=== PATIENT | male | born 1955 | race African-American/Black ===

== ENCOUNTER 2017-02-08 16:08 | Inpatient (IN) ==
[2017-02-08] MEDS ORDERED: ALBUTEROL/IPRATROPIUM 3 ML NEB RESP TX STA (17:39)
[2017-02-08] MEDS ORDERED: FUROSEMIDE 100 MG/10 ML VIAL IV STA (17:39)
--- NOTE | 2017-02-08 17:39 | Emergency Department Note ---
Jes Davidson Hilary, am scribing for, and in the presence of, Jase Parker MD 16:58. Keith Davidson Phillip K, MD, personally performed the services described in this documentation, ascribed by Roxann Andre in my presence, and it is both accurate and complete 739 . Arrival - Arrival ED Nursing Triage Note: Brought in per EMS form home with c/o shortness of breath onset approx 1530pm. +productive cough with white sputum. +pedal edema. Denies fever. Denies pain. Mode of Arrival: Stretcher Limitations: No Limitations Source: Patient, RN Notes Reviewed - History of Present Illness Onset (ago): hour(s) <Jase Parker - Last Filed: 02/08/17 17:39> <Raul Otoole - Last Filed: 02/08/17 19:44> - Arrival Chief Complaint: Shortness of Breath Stated Complaint: shortness of breath - History of Present Illness HPI Narrative: Pt is a 61 y/o white male brought into the ED via EMS with c/o SOB which onset approx 1530. Pt confirms SOB, cough white phlegm, decreased urine output, and swollen feet but denies fever, vomiting, or diarrhea. Pt has a PMHx of CHF, HTN , Seizures, NIDDM, Dyslipidemia, Gout, COPD and is on 2 Liter Oxygen at home 24/ 7. He confirms that he is a current everyday smoker. No other complaints or problems stated in the ED. (Roxann Andre) Pt is a 61 y/o white male brought into the ED via EMS with c/o SOB which onset approx 1530. Pt confirms SOB, cough white phlegm, decreased urine output, and swollen feet but denies fever, vomiting, or diarrhea. Pt has a PMHx of CHF, HTN , Seizures, NIDDM, Dyslipidemia, Gout, COPD and is on 2 Liter Oxygen at home 24/ 7. He confirms that he is a current everyday smoker. No other complaints or problems stated in the ED. (Jase Parker) Allergies/Adverse Reactions: Allergies Allergy/AdvReac Type Severity Reaction Status Date / Time lisinopril Allergy Swelling Verified 02/08/17 16:17 of Lip/Tongue/Throat Home Medications: Home Medications Medication Instructions Recorded Confirmed Type Furosemide Tab [Lasix Tab] 20 mg PO BID 09/16/15 02/08/17 History traMADol TAB [Ultram] 50 mg PO Q6H PRN 09/16/15 02/08/17 History Albuterol Sulfate [Proair HFA] 2 puff INH Q4H PRN 02/03/16 02/08/17 History Febuxostat [Uloric] 80 mg PO DAILY 02/03/16 02/08/17 History Pravastatin Sodium 20 mg PO QPM 02/03/16 02/08/17 History Tamsulosin [Flomax] 0.4 mg PO BID #60 capsule 02/25/16 02/08/17 Rx Pantoprazole Tab [Protonix Tab] 40 mg PO DAILY #14 tablet 05/30/16 02/08/17 Rx Aspirin EC Tab 81 mg PO DAILY 02/08/17 02/08/17 History Atorvastatin [Lipitor] 40 mg PO DAILY 02/08/17 02/08/17 History Carvedilol [Coreg] 6.25 mg PO BID 02/08/17 02/08/17 History Losartan Potassium 100 mg PO DAILY 02/08/17 02/08/17 History Review of System - Review of System 12 point system: reviewed and no additional remarkable complaints except as stated - Review of System Constitutional: Absent: diaphoresis, fever Respiratory: Present: cough, respiratory distress (SOB) Gastrointestinal: Absent: nausea, vomiting Musculoskeletal: Present: other (legs swelling) <Jase Parker - Last Filed: 02/08/17 17:39> Medical,Surgical,& Family Hx - Medical History Cardio: History of: CHF, Hypertension Neurology: History of: Seizures HEENT: History of: Ear Problem (WEARS GLASSES) Endocrine: History of: Diabetes Mellitus (NIDDM), Dyslipidemia Rheumatology: History of;: Gout Respiratory: History of: COPD, Obstructive Sleep Apnea, Respiratory Problems (2 Liter oxygen at home at all times) Genitourinary: History of: Prostate Problems (BPH with episode of retention February 2016) - Surgical History Abdominal Surgeries: Patient denies: Splenectomy - Family History Family History: Reports;: Family Cancer (MOTHER), Family Diabetes (FATHER), Family Hypertension (FATHER) Denies;: Family Anesthesia Reaction, Family Heart Disease, Family Psychiatric Problems, Family Stroke - Social History Smoking Status: Current some day smoker Frequency of Alcohol Use: None Type of Drug Use: None <Jase Parker - Last Filed: 02/08/17 17:39> Exam - General General appearance: alert, in no apparent distress - Head Head exam: Present: atraumatic, normocephalic - Eye Eye exam: Present: normal appearance, PERRL, EOMI - ENT ENT exam: Present: mucous membranes moist, TM's normal bilaterally. Absent: mucous membranes dry - Neck Neck exam: Present: full ROM, trachea midline. Absent: tenderness - Chest Chest inspection: Present: symmetric chest wall rise. Absent: tenderness - Respiratory Respiratory exam: Present: rales (Basular rales) - Cardiovascular Cardiovascular exam: Present: normal rhythm, tachycardia, normal heart sounds. Absent: murmur, rubs, gallop - Abdominal Exam Abdominal exam: Present: soft, normal bowel sounds. Absent: distention, tenderness - Extremities Exam Extremities exam: Present: full ROM, pedal edema (2-3+ bilaterally of lower extremities). Absent: tenderness - Back Exam Back exam: Present: full ROM. Absent: tenderness - Neurological Exam Neurological exam: Present: alert, oriented X3, CN II-XII intact. Absent: motor sensory deficit - Psychiatric Psychiatric exam: Present: normal affect, normal mood - Skin Skin exam: Present: warm, dry, intact, normal color. Absent: rash <Jase Parker - Last Filed: 02/08/17 17:39> Vital Signs: Vital Signs Temperature 98.0 F 02/08/17 16:08 Pulse Rate 85 02/08/17 17:45 Respiratory Rate 20 02/08/17 17:45 Blood Pressure 178/97 02/08/17 16:08 O2 Sat by Pulse Oximetry 93 L 02/08/17 17:45 Course <Jase Parker - Last Filed: 02/08/17 17:39> <Raul Otoole - Last Filed: 02/08/17 19:44> Course Narrative: During the course of treatment the patient presents with complaints of urinary retention. He had been seeing Dr. Mejia in this regard who had advised him that he would probably have to have a TURP in the near future as he was having a poor response to medical therapy. (Raul Otoole) - Reevaluation(s) Reevaluation #1: Discussed with patient fact that he has both urinary retention and prostate symptoms as well as ongoing congestive failure with possible complicating pneumonia with resting tachycardia and hypoxia which would require further evaluation and hospital. (Raul Otoole) - Consultations Consultation #1: Discussed with the hospitalist service who will admit for further evaluation treatment. (Raul Otoole) Results <Jase Parker - Last Filed: 02/08/17 17:39> - Labs CBC & BMP: 02/08/17 18:27 02/08/17 18:27 - Diagnostic Findings Procedure: Chest x-ray: image reviewed by me, report reviewed by me (System with pulmonary edema acute rule out possible complicating pneumonia) <Raul Otoole - Last Filed: 02/08/17 19:44> - Labs Labs: I reviewed the laboratory noted the elevated white blood cell count as well as the normal cardiac (Raul Otoole) - Impressions EKG: Sinus tachycardia at 102 with normal MA interval and QRS duration. Right axis deviation with evidence of old inferior FL. Nonspecific ST changes noted significant anteriorly but no acute injury pattern noted. (Raul Otoole) Disposition <Jase Parker - Last Filed: 02/08/17 17:39> Case discussed with: patient, patient's family Time of Disposition: 19:44 <Raul Otoole - Last Filed: 02/08/17 19:44> Clinical Impression: Congestive heart failure, Urinary retention, Prostatic hypertrophy Disposition: Still a Patient Condition: Guarded
--- NOTE | 2017-02-08 18:01 | XRay Report ---
XR chest 1V portable Indication: Shortness of breath Comparison: Chest x-ray 10/28/2016 Technique: Portable AP chest was performed. Findings: The heart is borderline in size, stable. Pulmonary vasculature is prominent within the central chest bilaterally. This prominence has slightly increased since comparison study. Hilar structures demonstrate fairly symmetric appearance. The lungs demonstrate interval increase in nonconsolidating airspace opacities in the mid to lower chest bilaterally as well as some interval increase in interstitial stranding. Bones and soft tissues demonstrate no evidence of acute pathology. Impression: 1. Appearance of the chest is most suggestive of congestive heart failure and pulmonary edema. 02/08/2017 5:58 PM PROCEDURE INTERPRETED AT [facility] DEPARTMENT OF RADIOLOGY Final Report Signed by: Dr. Bartolo Morales
[2017-02-08] MEDS ORDERED: FUROSEMIDE 100 MG/10 ML VIAL ONE (18:32)
[2017-02-08] MEDS ORDERED: LEVOFLOXACIN 750 MG TABLET PO STA (18:48)
[2017-02-08 19:07] LABS: Basophils % 0.2 % (0.0-0.8); Eosinophils # 0.1 10*3/uL (0.0-0.87); Eosinophils % 0.5 % (0.00-10.9); Hematocrit 54.3 VOL% (42.0-52.0); Hemoglobin 17.8 GM/DL (14.0-18.0); Immature Granulocytes % 0.6 %; Immature Granulocytes Absolute 0.11 #; Lymphocytes # 0.9 10*3/uL (1.4-4.0); Mean Corpuscular HGB Conc 32.8 GM/DL (32-36); Mean Corpuscular Hemoglobin 29 PG (27-34); Mean Corpuscular Volume 88.3 FL (87-102); Monocytes # 1.2 10*3/uL (0.11-0.8); Monocytes % 6.4 % (1.7-12.7); NRBC # 0.02 10*3/uL; Neutrophils # 15.7 10*3/uL (1.4-7.4); Neutrophils % 87.3 % (38.7-73.9); Platelet Count 157 T/CUMM (130-400); Red Blood Count 6.15 MC/CUMM (3.8-5.5); Red Cell Distribution Width 14.9 % (9.3-17.3)
[2017-02-08] MEDS ORDERED: TAMSULOSIN 0.4 MG CAPSULE PO ONE (19:22)
[2017-02-08] MEDS ORDERED: LEVOFLOXACIN 750 MG TABLET ONE (19:22)
[2017-02-08 19:29] LABS: Alanine Aminotransferase 23 U/L (16-61); Albumin 3.3 G/DL (3.4-5.0); Alkaline Phosphatase 196 U/L (45-117); Aspartate Amino Transferase 18 U/L (0-37); Blood Urea Nitrogen 15 MG/DL (7-18); Calcium 9.1 MG/DL (8.5-10.1); Glucose 102 MG/DL (74-106); Magnesium 1.8 MG/DL (1.8-2.4); Osmolality,Calculated 283.1 MOS/KG (273-304); Potassium 4.4 MMOL/L (3.5-5.1); Sodium 142 MMOL/L (136-145); Total Protein 7.2 G/DL (6.4-8.3); Troponin I Only < 0.015 NG/ML (0.00-0.045)
--- NOTE | 2017-02-08 20:12 | Hospitalist History & Physical ---
Assessment and Plan (1) Bilateral pulmonary infiltrates on CXR Status: Acute Assessment and plan: zosyn and levaquin, oxygen, stat abg, duonebs Current Visit: Yes (2) COPD exacerbation Status: Acute Assessment and plan: duoneb, abx and steroids Current Visit: Yes (3) Morbid obesity Status: Acute Current Visit: Yes (4) Community acquired pneumonia Status: Ruled-out Assessment and plan: levaquin and zosyn Current Visit: No (5) Unspecified sleep apnea Status: Acute Assessment and plan: Dr. Lopez Current Visit: No (6) Chronic diastolic CHF (congestive heart failure), NYHA class 2 Status: Acute Assessment and plan: cont lasix 20 mg IV bid Current Visit: No (7) Essential hypertension Status: Acute Assessment and plan: coreg 6.25 mg po bid Current Visit: No (8) Cor pulmonale, chronic Status: Chronic Assessment and plan: due to untreated nick Current Visit: No History of Present Illness Chief complaint: sob History of present illness: Mr. Zamudio is a 61 year old white male brought into the ED via EMS with c/o SOB which onset approx 1530. Pt confirms SOB, cough white phlegm, decreased urine output, and swollen feet but denies fever, vomiting, or diarrhea. Pt has a PMHx of CHF, HTN, Seizures, NIDDM, Dyslipidemia, Gout, COPD and is on 2 Liter Oxygen at home 11/04. He confirms that he is a current everyday smoker. No other complaints or problems stated in the ED. patient has severe morbid obesity and has severe obstructive sleep apnea and has never been compliant with CPAP. Fact he does seem and have a CPAP machine at home. He feels that the pressure was too high and just would not do it. His white count is elevated at 18. He has a productive cough it is just whitish phlegm. Patient is high risk for pulmonary hypertension. He is unstable on 2 L and increased him to 5 L and asked for a unit bed for him. Stat ABG will be obtained in the ER prior to moving him to the CCU Home Medications Medication Instructions Recorded Confirmed Type Furosemide Tab [Lasix Tab] 20 mg PO BID 09/16/15 02/08/17 History traMADol TAB [Ultram] 50 mg PO Q6H PRN 09/16/15 02/08/17 History Albuterol Sulfate [Proair HFA] 2 puff INH Q4H PRN 02/03/16 02/08/17 History Febuxostat [Uloric] 80 mg PO DAILY 02/03/16 02/08/17 History Pravastatin Sodium 20 mg PO QPM 02/03/16 02/08/17 History Tamsulosin [Flomax] 0.4 mg PO BID #60 capsule 02/25/16 02/08/17 Rx Pantoprazole Tab [Protonix Tab] 40 mg PO DAILY #14 tablet 05/30/16 02/08/17 Rx Aspirin EC Tab 81 mg PO DAILY 02/08/17 02/08/17 History Atorvastatin [Lipitor] 40 mg PO DAILY 02/08/17 02/08/17 History Carvedilol [Coreg] 6.25 mg PO BID 02/08/17 02/08/17 History Losartan Potassium 100 mg PO DAILY 02/08/17 02/08/17 History Allergies Allergy/AdvReac Type Severity Reaction Status Date / Time lisinopril Allergy Swelling Verified 02/08/17 16:17 of Lip/Tongue/Throat Medical,Surgical,& Family Hx - Medical History Cardio: History of: CHF, Hypertension Neurology: History of: Seizures HEENT: History of: Ear Problem (WEARS GLASSES) Endocrine: History of: Diabetes Mellitus (NIDDM), Dyslipidemia Rheumatology: History of;: Gout Respiratory: History of: COPD, Obstructive Sleep Apnea, Respiratory Problems (2 Liter oxygen at home at all times) Genitourinary: History of: Prostate Problems (BPH with episode of retention February 2016) - Surgical History Abdominal Surgeries: Patient denies: Splenectomy Additional Surgical History: no surgery ever - Family History Family History: Reports;: Family Cancer (MOTHER), Family Diabetes (FATHER), Family Hypertension (FATHER) Denies;: Family Anesthesia Reaction, Family Heart Disease, Family Psychiatric Problems, Family Stroke - Social History Smoking Status: Current every day smoker Frequency of Alcohol Use: None Type of Drug Use: None Marital Status: Lives With:: Spouse Functional capacity: independent ambulation - Constitutional Constitutional: Present: weight gain. Absent: fever(s), headache(s) - EENT Eyes: Absent: blurry vision, diplopia Ears: Absent: decreased hearing, ear discharge Nose, mouth and throat: Absent: headache(s), sore throat - Cardiovascular Cardiovascular: Present: dyspnea, dyspnea on exertion, edema. Absent: chest pain at rest, chest pain with activity - Respiratory Respiratory: Present: cough, dyspnea, dyspnea on exertion, snoring - Gastrointestinal Gastrointestinal: Present: constipation. Absent: diarrhea - Genitourinary Genitourinary: Present: difficulty urinating, dysuria - Neurological Neurological: Absent: confusion, headache(s), syncope - Psychiatric Psychiatric: Absent: anxiety, depression - Endocrine Endocrine: Present: fatigue, heat intolerance - Hematologic/Lymphatic Hematologic/Lymphatic: Absent: easy bleeding, easy bruising Exam - Constitutional Vitals: Period Temp Pulse Resp BP Sys/Lew Pulse Ox Last 24 Hr 98.0 F-98.0 F 78-100 18-22 178-178/97-97 82-93 General appearance: severe distress, morbidly obese - Head Head exam: Present: normal inspection, normocephalic - Eye Eye exam: Present: EOMI, conjunctival injection Pupils: Present: MICHELLE, normal accommodation - ENT ENT exam: Present: normal exam, normal external ear exam - Neck Neck exam: Absent: lymphadenopathy, thyromegaly - Respiratory Respiratory exam: Present: decreased breath sounds. Absent: rhonchi, wheezes - Cardiovascular Cardiovascular exam: Present: tachycardia. Absent: systolic murmur - GI/Abdominal GI/Abdominal exam: Present: normal bowel sounds, soft. Absent: tenderness - Extremities Exam Extremities exam: Present: normal capillary refill, edema - Neurological Exam Neurological exam: Present: alert, oriented X3, CN II-XII intact, reflexes normal. Absent: motor sensory deficit - Psychiatric Psychiatric exam: Present: normal affect, normal mood - Skin Skin exam: Present: normal color, warm Results - Labs CBC & BMP: 02/08/17 18:27 02/08/17 18:27 Lab Results: I have reviewed the past 24 hour labs Labs: bnp 71 - Diagnostic Findings Procedure: Chest x-ray: report reviewed by me (bilateral infiltrates )
[2017-02-08] MEDS ORDERED: MAGNESIUM CITRATE 300 ML BOTTLE PO ONE (20:24)
[2017-02-08 20:41] LABS: Apearance,Urine CLEAR (Clear); Bilirubin,Urine Negative (Negative); Blood, Urine Moderate mg/dL (Negative); Glucose,Urine (UA) Negative (Negative); Hyaline Casts,Urine 1 /LPF (0-3); Ketones,Urine Negative (Negative); Mucus,Urine Occasional /LPF (Occasional); Nitrite,Urine Negative (Negative); Protein,Urine Negative; RBC,Urine 11 /HPF (0-4); Squamous Epithelial Cell,Urine Occasional /HPF (0-10); Urine Color Straw (Yellow); Urine Specific Gravity 1.004 (1.001-1.035); Urine Urobilinogen < 2.0 EU/DL (0.2-1.0); WBC,Urine 70 /HPF (0-6)
[2017-02-08] MEDS ORDERED: ALBUTEROL/IPRATROPIUM 3 ML NEB RESP TX ONE (20:41)
[2017-02-08] MEDS ORDERED: FUROSEMIDE 40 MG/4 ML VIAL IV ONE (20:41)
[2017-02-08 20:54] LABS: ABG Base Excess 3.6 MMOL/L (-2.5-2.5); ABG HCO3 27.3 MMOL/L (20-26); ABG Oxygen Saturation 89.5 % (95-100); ABG PCO2 46.5 MM HG (35-48); ABG PH 7.408 (7.35-7.45); ABG PO2 55.9 MM HG (80-95); Allen Test Positive
[2017-02-08] MEDS ORDERED: ZALEPLON 5 MG CAPSULE PO PRN (21:52)
[2017-02-08] MEDS ORDERED: ACETAMINOPHEN 325 MG TABLET PO PRN (21:52)
[2017-02-08] MEDS ORDERED: DEXTROSE 50% 25 GM/50 ML VIAL IV PRN (21:52)
[2017-02-08] MEDS ORDERED: GLUCAGON 1 MG VIAL IM PRN (21:52)
[2017-02-08] MEDS ORDERED: ONDANSETRON 4 MG/2 ML VIAL IV PRN (21:52)
[2017-02-08 22:53] LABS: Magnesium 1.8 MG/DL (1.8-2.4); Thyroid Stimulating Hormone 1.31 uIU/ml (0.358-3.74)
[2017-02-08] MEDS: methylPREDNISolone SOD SUC 125 MG/2 ML VIAL IV SCH (23:05)
[2017-02-08] MEDS: ENOXAPARIN 40 MG/0.4 ML SYRINGE SUBCUT SCH (23:05)
[2017-02-08] MEDS: CARVEDILOL 6.25 MG TABLET PO SCH (23:05)
[2017-02-08] MEDS: PIPERACILLIN/TAZOBACTAM 3,375 MG in SODIUM CHLORIDE 0.9% 100 ML IV SCH (23:06)
[2017-02-09] MEDS: ALBUTEROL/IPRATROPIUM 3 ML NEB RESP TX SCH ×7 (00:05→23:59)
[2017-02-09 04:58] LABS: Basophils % 0.2 % (0.0-0.8); Hematocrit 53.6 VOL% (42.0-52.0); Hemoglobin 17.2 GM/DL (14.0-18.0); Immature Granulocytes % 0.6 %; Immature Granulocytes Absolute 0.15 #; Lymphocytes # 0.7 10*3/uL (1.4-4.0); Lymphocytes % 3.1 % (21.2-54.2); Mean Corpuscular HGB Conc 32.1 GM/DL (32-36); Mean Corpuscular Hemoglobin 28 PG (27-34); Mean Corpuscular Volume 88.4 FL (87-102); Mean Platelet Volume 10.9 FL (9.6-12.0); Monocytes # 0.7 10*3/uL (0.11-0.8); Monocytes % 2.7 % (1.7-12.7); Neutrophils # 22.5 10*3/uL (1.4-7.4); Neutrophils % 93.4 % (38.7-73.9); Platelet Count 167 T/CUMM (130-400); Red Blood Count 6.06 MC/CUMM (3.8-5.5); Red Cell Distribution Width 14.9 % (9.3-17.3)
[2017-02-09] MEDS: PIPERACILLIN/TAZOBACTAM 3,375 MG in SODIUM CHLORIDE 0.9% 100 ML IV SCH ×3 (05:06→17:15)
[2017-02-09] MEDS: methylPREDNISolone SOD SUC 125 MG/2 ML VIAL IV SCH ×2 (05:06→17:12)
[2017-02-09 05:29] LABS: Osmolality,Calculated 287.1 MOS/KG (273-304); Potassium 4.7 MMOL/L (3.5-5.1)
[2017-02-09 05:31] LABS: Band Neutrophils 1 % (0-10); Lymphocytes 4 % (20-55); Segmented Neutrophils 92 % (50-85); Total Cells Counted 100
[2017-02-09 05:32] LABS: Hypochromasia 1+; Platelet Estimate Adequate
[2017-02-09] MEDS ORDERED: FUROSEMIDE 20 MG/2 ML VIAL IV SCH (08:00)
--- NOTE | 2017-02-09 08:01 | EKG Report ---
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
[2017-02-09] MEDS: FEBUXOSTAT 80 MG TABLET PO SCH (09:05)
[2017-02-09] MEDS: ASPIRIN EC 81 MG TABLET PO SCH (09:05)
[2017-02-09] MEDS: CARVEDILOL 6.25 MG TABLET PO SCH ×2 (09:05→20:47)
[2017-02-09] MEDS: TAMSULOSIN 0.4 MG CAPSULE PO SCH (09:05)
[2017-02-09] MEDS: PANTOPRAZOLE 40 MG TABLET PO SCH (09:05)
[2017-02-09] MEDS: ATORVASTATIN 40 MG TABLET PO SCH (09:05)
--- NOTE | 2017-02-09 11:59 | Sleep Medicine Consult ---
Assessment and Plan (1) Obstructive sleep apnea Status: Acute Assessment and plan: This patient will require re-titration of CPAP to get a CPAP device. We will set him up for sleep study after discharge. I stressed the importance of compliance and follow-up in the sleep lab given the severity of his obstructive sleep apnea. With such severe obstructive sleep apnea, it certainly will put him at risk for recurrent episodes of CHF, irregular heart rhythm, heart attack , and stroke. Current Visit: Yes (2) Hypertension Status: Chronic Assessment and plan: The prevalence rate for obstructive sleep apnea patients with hypertension is 35 %. That rate can be as high as 80% in patients who require 4 or more medications for blood pressure control. Current Visit: No Qualifiers: Hypertension type: essential hypertension Qualified Code(s): I10 - Essential (primary) hypertension (3) Diabetes Status: Chronic Assessment and plan: The prevalence rate for obstructive sleep apnea in patients with type 2 diabetes can be as high as 86%. Those patients with moderate to severe obstructive sleep apnea are at a greater risk for diabetic nephropathy and neuropathy. Compliance with CPAP therapy for these patients can lead to improvement in glycemic control and improvement in insulin sensitivity. Current Visit: No Qualifiers: Diabetes mellitus type: type 2 History of Present Illness Chief complaint: Sleep apnea History of present illness: Mr. Zamudio is a 61 year old male diagnosed with obstructive sleep apnea on 08/2016. He had severe sleep apnea with an AHI of 60. He was treated with a combination of CPAP of 11 cm with supplemental oxygen at 2 L/min. He did not comply with CPAP therapy and lost his machine. He still has an oxygen concentrator at home and states that he sleeps with O2. He does continue to snore. He has not returned to the sleep clinic and was admitted on this occasion with shortness of breath and CHF. He was placed on empiric CPAP last night and did well. Home Medications Medication Instructions Recorded Confirmed Type Furosemide Tab [Lasix Tab] 20 mg PO BID 09/16/15 02/08/17 History traMADol TAB [Ultram] 50 mg PO Q6H PRN 09/16/15 02/08/17 History Albuterol Sulfate [Proair HFA] 2 puff INH Q4H PRN 02/03/16 02/08/17 History Febuxostat [Uloric] 80 mg PO DAILY 02/03/16 02/08/17 History Pravastatin Sodium 20 mg PO QPM 02/03/16 02/08/17 History Tamsulosin [Flomax] 0.4 mg PO BID #60 capsule 02/25/16 02/08/17 Rx Pantoprazole Tab [Protonix Tab] 40 mg PO DAILY #14 tablet 05/30/16 02/08/17 Rx Aspirin EC Tab 81 mg PO DAILY 02/08/17 02/08/17 History Atorvastatin [Lipitor] 40 mg PO DAILY 02/08/17 02/08/17 History Carvedilol [Coreg] 6.25 mg PO BID 02/08/17 02/08/17 History Losartan Potassium 100 mg PO DAILY 02/08/17 02/08/17 History Allergies Allergy/AdvReac Type Severity Reaction Status Date / Time lisinopril Allergy Swelling Verified 02/08/17 16:17 of Lip/Tongue/Throat Review of systems: Otherwise unremarkable from a sleep standpoint. He has lost over 20 pounds since his diagnosis last year. Exam (Pulmonay) H&P - Constitutional Vitals: Period Temp Pulse Resp BP Sys/Lew Pulse Ox Last 24 Hr 96.3 F-98 F 61-118 10-24 104-159/67-98 82-97 Exam: He is alert and responsive in no acute distress. Pupils equal round reactive to light and accommodation. Extraocular movements intact. Oropharynx with a class III Mallampati exam. Neck supple without adenopathy or thyromegaly. No supraclavicular adenopathy is noted. Chest with symmetrical breath sounds without focal wheeze, rhonchi, or rales. Cardiac exam reveals a regular rhythm without murmur or gallop. Abdomen obese nontender without palpable hepatosplenomegaly or mass. Extremities are without clubbing, cyanosis, or edema. Neurologically, he is grossly intact. He moves all extremities with good strength. Medical,Surgical,& Family Hx - Medical History Cardio: History of: CHF, Hypertension Neurology: No history of: Seizures HEENT: History of: Eye Problem (Wear Glass) No history of: Ear Problem Endocrine: History of: Diabetes Mellitus (NIDDM), Dyslipidemia Rheumatology: History of;: Gout (started in 2005) Respiratory: History of: COPD, Obstructive Sleep Apnea, Respiratory Problems (2 Liter oxygen at home at all times) Genitourinary: History of: Prostate Problems (BPH with episode of retention February 2016) - Surgical History Abdominal Surgeries: Patient denies: Splenectomy - Family History Family History: Reports;: Family Cancer (MOTHER), Family Diabetes (FATHER), Family Hypertension (FATHER) Denies;: Family Anesthesia Reaction, Family Heart Disease, Family Psychiatric Problems, Family Stroke - Social History Smoking Status: Current every day smoker Frequency of Alcohol Use: None Type of Drug Use: None Results - Labs CBC & BMP: 02/09/17 04:30 02/09/17 04:30 Lab Results: I have reviewed the past 24 hour labs Labs: TSH is normal. ABGs revealed hypoxia and mild CO2 retention.
--- NOTE | 2017-02-09 14:47 | Hospitalist Progress Note ---
Assessment and Plan (1) Bilateral pulmonary infiltrates on CXR Status: Acute Assessment and plan: zosyn and levaquin, oxygen requiring 5 liters, duonebs Current Visit: Yes (2) COPD exacerbation Status: Acute Assessment and plan: duoneb, abx and steroids Current Visit: Yes (3) Morbid obesity Status: Acute Assessment and plan: counseled on weight loss Current Visit: Yes (4) Community acquired pneumonia Status: Ruled-out Assessment and plan: levaquin and zosyn Current Visit: No (5) Unspecified sleep apnea Status: Acute Assessment and plan: Dr. Lopez has seen him and placed him on autotitration cpap Current Visit: No (6) Chronic diastolic CHF (congestive heart failure), NYHA class 2 Status: Acute Assessment and plan: Hold lasix for now, coreg 6.25 mg po bid, echo Current Visit: No (7) Essential hypertension Status: Acute Assessment and plan: coreg 6.25 mg po bid Current Visit: No (8) Cor pulmonale, chronic Status: Chronic Assessment and plan: due to untreated nick Current Visit: No Hospitalist: Subjective Interval history: Patient says he feels much better today. He is breathing much better. He did sleep on a CPAP and says he feels better on it. Saturation 85% on 5 liters. Exam - Constitutional Vitals: Period Temp Pulse Resp BP Sys/Lew Pulse Ox Last 24 Hr 96.3 F-98 F 61-118 10-24 104-159/67-98 82-97 Exam: Heart Rate-[RRR] Lungs-[clear but diminished but moving more air than yesterday ] GI-[+bs soft, NT] Ext-[large ankles trace edema] Neuro [Motor 5/5], [alert and oriented times 3] psych [normal mood and affect] General [no acute distress] Results - Labs CBC & BMP: 02/09/17 04:30 02/09/17 04:30 Lab Results: I have reviewed the past 24 hour labs Labs: blood cx times 2, urine cx negative,
[2017-02-09] MEDS: LEVOFLOXACIN INJ 750 MG in PREMIX 1 EACH IV SCH (20:47)
[2017-02-09] MEDS: ENOXAPARIN 40 MG/0.4 ML SYRINGE SUBCUT SCH (20:47)
[2017-02-10] MEDS: methylPREDNISolone SOD SUC 125 MG/2 ML VIAL IV SCH ×2 (00:05→07:04)
[2017-02-10] MEDS: PIPERACILLIN/TAZOBACTAM 3,375 MG in SODIUM CHLORIDE 0.9% 100 ML IV SCH ×3 (02:00→16:35)
[2017-02-10] MEDS: ALBUTEROL/IPRATROPIUM 3 ML NEB RESP TX SCH ×5 (03:35→19:27)
[2017-02-10 06:46] LABS: Basophils # 0.1 10*3/uL (0.0-0.2); Basophils % 0.2 % (0.0-0.8); Hematocrit 54.2 VOL% (42.0-52.0); Hemoglobin 17.7 GM/DL (14.0-18.0); Immature Granulocytes % 0.9 %; Immature Granulocytes Absolute 0.21 #; Lymphocytes # 0.9 10*3/uL (1.4-4.0); Lymphocytes % 3.7 % (21.2-54.2); Mean Corpuscular HGB Conc 32.7 GM/DL (32-36); Mean Corpuscular Hemoglobin 30 PG (27-34); Mean Corpuscular Volume 90.3 FL (87-102); Mean Platelet Volume 10.9 FL (9.6-12.0); Monocytes # 1.1 10*3/uL (0.11-0.8); Monocytes % 4.4 % (1.7-12.7); NRBC # 0.02 10*3/uL; Neutrophils # 22.2 10*3/uL (1.4-7.4); Neutrophils % 90.8 % (38.7-73.9); Platelet Count 163 T/CUMM (130-400); Red Cell Distribution Width 14.9 % (9.3-17.3); White Blood Count 24.5 T/CUMM (4-12)
[2017-02-10 07:25] LABS: Calcium 9.3 MG/DL (8.5-10.1); Potassium 4.5 MMOL/L (3.5-5.1)
[2017-02-10 07:47] LABS: Hypochromasia 1+; Lymphocytes 3 % (20-55); Platelet Estimate Decreased; Segmented Neutrophils 97 % (50-85); Total Cells Counted 100
[2017-02-10] MEDS: CARVEDILOL 6.25 MG TABLET PO SCH ×2 (08:46→21:39)
[2017-02-10] MEDS: ASPIRIN EC 81 MG TABLET PO SCH (08:46)
[2017-02-10] MEDS: TAMSULOSIN 0.4 MG CAPSULE PO SCH (08:46)
[2017-02-10] MEDS: ATORVASTATIN 40 MG TABLET PO SCH (08:47)
[2017-02-10] MEDS: PANTOPRAZOLE 40 MG TABLET PO SCH (08:47)
[2017-02-10] MEDS: FEBUXOSTAT 80 MG TABLET PO SCH (08:47)
[2017-02-10] MEDS ORDERED: traMADol 50 MG TABLET PO PRN (13:05)
--- NOTE | 2017-02-10 13:16 | Hospitalist Progress Note ---
Assessment and Plan (1) Community acquired pneumonia Status: Ruled-out Assessment and plan: Continue duo nebs, steroids, Levaquin and zosyn Current Visit: No (2) COPD exacerbation Status: Acute Assessment and plan: duoneb, abx and steroids Current Visit: Yes (3) Morbid obesity Status: Acute Assessment and plan: counseled on weight loss Current Visit: Yes (4) Unspecified sleep apnea Status: Acute Assessment and plan: Dr. Lopez has seen him and placed him on autotitration cpap which he has tolerated really well Current Visit: No (5) Chronic diastolic CHF (congestive heart failure), NYHA class 2 Status: Acute Assessment and plan: Continue Coreg 6.25 mg po bid, echo done but reading pending Current Visit: No (6) Essential hypertension Status: Acute Assessment and plan: Controlled with coreg Current Visit: No (7) Cor pulmonale, chronic Status: Chronic Assessment and plan: Due to pulmonary hypertension, obstructive sleep apnea, obesity hypoventilation syndrome Current Visit: No Hospitalist: Subjective Interval history: Patient feeling much better today. Wants to go upstairs. Okay to go upstairs without a monitor. Patient's Willams is hurting him and we will discontinue that immediately. Tolerating CPAP well at night. Exam - Constitutional Vitals: Period Temp Pulse Resp BP Sys/Lew Pulse Ox Last 24 Hr 97.1 F-98 F 54-85 7-24 97-140/44-92 83-95 Exam: Heart Rate-[RRR] Lungs-[clear but diminished but continuing to improve GI-[+bs soft, NT] Ext-[large ankles trace edema] Neuro [Motor 5/5], [alert and oriented times 3] psych [normal mood and affect] General [no acute distress] Results - Labs CBC & BMP: 02/10/17 04:00 02/10/17 07:00 Lab Results: I have reviewed the past 24 hour labs Labs: Gram-positive cocci in 1 of 2 blood cultures
--- NOTE | 2017-02-10 14:04 | ECHO Report ---
ZamudioMorro anand 02/09/2017 Exam Date: 15:28 Referring Physician: Payton Putnam Technologist: EN Age: 61 Ht (in): 68 Wt (lb): 330 MExam Location[facility] Gender: Echo [id number]: HTN, ERIC, COPD, bilateral pneumoniaIndications: BP: / HR: 70 SinusRhythm: FairTechnical Quality: IMPRESSIONS Normal LV systolic and diastolic function, ejection fraction 55-60%. Moderate concentric left ventricular hypertrophy. No significant valvular pathology identified. MEASUREMENTS (Male / Female) Normal Values 2D ECHO LV Diastolic Diameter PLAX 4.1 cm 4.2 - 5.9 / 3.9 - 5.3 cm LV Systolic Diameter PLAX 2.9 cm LV Fractional Shortening PLAX 29.3 % IVS Diastolic Thickness 1.7 cm 0.6 - 1.0 / 0.6 - 0.9 cm LVPW Diastolic Thickness 1.6 cm 0.6 - 1.0 / 0.6 - 0.9 cm RV Internal Dim ED PLAX 2.6 cm Aortic Root Diameter 3.2 cm LA Systolic Diameter LX 3.6 cm 3.0 - 4.0 / 2.7 - 3.8 cm FINDINGS Left Ventricle Severely increased septal wall thickness. Moderate concentric left ventricular hypertrophy. Left ventricular ejection fraction is estimated at 55-60 %. Right Ventricle Normal right ventricular size and systolic function. Right Atrium Normal right atrial size. Left Atrium Normal left atrial size. Mitral Valve Mild mitral valve sclerosis. Aortic Valve Aortic valve sclerosis without stenosis or regurgitation. Tricuspid Valve Morphologically normal tricuspid valve. Pulmonic Valve Morphologically normal pulmonic valve. Pericardium No pericardial effusion. Aorta Normal size aortic root and proximal ascending aorta. Monica Salinas MD (Electronically Signed) 10 Feb 2017 09:05Final Date:
[2017-02-10] MEDS: methylPREDNISolone SOD SUC 40 MG/1 ML VIAL IV SCH ×2 (16:39→23:15)
--- NOTE | 2017-02-10 19:55 | Sleep Medicine Progress Note ---
Assessment and Plan (1) Obstructive sleep apnea Status: Acute Assessment and plan: Continue auto titration CPAP and follow-up results. Current Visit: Yes (2) Hypertension Status: Chronic Current Visit: No Qualifiers: Hypertension type: essential hypertension Qualified Code(s): I10 - Essential (primary) hypertension (3) Diabetes Status: Chronic Current Visit: No Qualifiers: Diabetes mellitus type: type 2 Sleep Medicine Subjective Interval history: Patient does appear to be improving. He did use auto CPAP last night and his average device pressure was about 8 cm. He still has some mild sleep apnea on the device at an AHI of 7.9. Overall he does seem to be adjusting well and I encouraged him to continue to be compliant with therapy. Exam (Progress Note) - Constitutional Vitals: Period Temp Pulse Resp BP Sys/Lew Pulse Ox Last 24 Hr 96.6 F-98 F 54-78 7-22 97-140/44-87 83-95 Exam: He is alert and responsive in no acute distress. Chest with good air movement and no focal wheeze or rhonchi. Cardiac exam reveals a regular rhythm without murmur or gallop. Abdomen soft nontender extremities without increased edema. Results - Labs CBC & BMP: 02/10/17 04:00 02/10/17 07:00 Lab Results: I have reviewed the past 24 hour labs
[2017-02-10] MEDS: LEVOFLOXACIN INJ 750 MG in PREMIX 1 EACH IV SCH (21:39)
[2017-02-10] MEDS: ENOXAPARIN 40 MG/0.4 ML SYRINGE SUBCUT SCH (21:39)
[2017-02-11] MEDS: ALBUTEROL/IPRATROPIUM 3 ML NEB RESP TX SCH ×7 (00:14→22:22)
[2017-02-11] MEDS: PIPERACILLIN/TAZOBACTAM 3,375 MG in SODIUM CHLORIDE 0.9% 100 ML IV SCH ×3 (02:03→17:22)
[2017-02-11] MEDS: methylPREDNISolone SOD SUC 40 MG/1 ML VIAL IV SCH ×3 (05:30→21:49)
[2017-02-11 06:38] LABS: Basophils % 0.1 % (0.0-0.8); Hematocrit 48.7 VOL% (42.0-52.0); Hemoglobin 15.6 GM/DL (14.0-18.0); Immature Granulocytes % 0.7 %; Immature Granulocytes Absolute 0.13 #; Lymphocytes # 0.7 10*3/uL (1.4-4.0); Lymphocytes % 3.9 % (21.2-54.2); Mean Corpuscular Hemoglobin 29 PG (27-34); Mean Corpuscular Volume 90.4 FL (87-102); Mean Platelet Volume 11.2 FL (9.6-12.0); Monocytes # 0.8 10*3/uL (0.11-0.8); Monocytes % 4.3 % (1.7-12.7); NRBC # 0.02 10*3/uL; Platelet Count 167 T/CUMM (130-400); Red Blood Count 5.39 MC/CUMM (3.8-5.5); Red Cell Distribution Width 14.9 % (9.3-17.3); White Blood Count 17.6 T/CUMM (4-12)
[2017-02-11 07:06] LABS: Calcium 9.2 MG/DL (8.5-10.1); Potassium 4.7 MMOL/L (3.5-5.1)
[2017-02-11 07:18] LABS: Band Neutrophils 1 % (0-10); Hypochromasia 1+; Lymphocytes 11 % (20-55); Platelet Estimate Decreased; Segmented Neutrophils 81 % (50-85); Total Cells Counted 100
--- NOTE | 2017-02-11 09:00 | Pulmonology Consult Note ---
Assessment and Plan (1) CHF (congestive heart failure) Status: Chronic Assessment and plan: The patient came in short of breath and his chest x-ray does look like mild heart failure. He has been diuresing fairly well. He says he feels better now. Current Visit: No (2) UTI (urinary tract infection) Status: Acute Assessment and plan: The patient felt like he was having trouble with his urine but he says this is better now. Current Visit: No Qualifiers: Urinary tract infection type: acute cystitis (3) Diabetes Status: Chronic Assessment and plan: His glucose is 127 today. Current Visit: No Qualifiers: Diabetes mellitus type: type 2 (4) Nicotine addiction Status: Acute Assessment and plan: The patient certainly needs to quit smoking Current Visit: No (5) Essential hypertension Status: Acute Assessment and plan: His blood pressure has been reasonably stable at present. Current Visit: No (6) Cor pulmonale, chronic Status: Chronic Assessment and plan: The patient is diuresing a little better and his oxygenation is improved. His leg swelling is better Current Visit: No (7) Bilateral pulmonary infiltrates on CXR Status: Acute Assessment and plan: The patient may have a component of pneumonia but is doing fairly well now. He is getting broad-spectrum penicillin. He looks stable and can move to a regular room. Current Visit: Yes (8) COPD exacerbation Status: Acute Assessment and plan: The patient has a component of COPD and will continue with steroids and bronchodilator therapy. Current Visit: Yes (9) Morbid obesity Status: Acute Assessment and plan: He certainly needs to try to lose weight. Current Visit: Yes (10) Obstructive sleep apnea Status: Acute Assessment and plan: He is being reevaluated by Dr. Lopez. Current Visit: Yes History of Present Illness Chief complaint: Shortness of breath History of present illness: Mr. Zamudio is a 61 year old black male that has a history of having COPD and pulmonary hypertension. He is very overweight and has obstructive sleep apnea. He has been a smoker and is noncompliant with his CPAP. He does have diabetes and hypertension. He says he came in because he was having trouble voiding but then got more short of breath and congested. He said he was coughing up some phlegm. He does have swelling in his legs. He says he is feeling better today. His PO2 is 55 yesterday. His PCO2 is only 46. Home Medications Medication Instructions Recorded Confirmed Type Furosemide Tab [Lasix Tab] 20 mg PO BID 09/16/15 02/08/17 History traMADol TAB [Ultram] 50 mg PO Q6H PRN 09/16/15 02/08/17 History Albuterol Sulfate [Proair HFA] 2 puff INH Q4H PRN 02/03/16 02/08/17 History Febuxostat [Uloric] 80 mg PO DAILY 02/03/16 02/08/17 History Pravastatin Sodium 20 mg PO QPM 02/03/16 02/08/17 History Tamsulosin [Flomax] 0.4 mg PO BID #60 capsule 02/25/16 02/08/17 Rx Pantoprazole Tab [Protonix Tab] 40 mg PO DAILY #14 tablet 05/30/16 02/08/17 Rx Aspirin EC Tab 81 mg PO DAILY 02/08/17 02/08/17 History Atorvastatin [Lipitor] 40 mg PO DAILY 02/08/17 02/08/17 History Carvedilol [Coreg] 6.25 mg PO BID 02/08/17 02/08/17 History Losartan Potassium 100 mg PO DAILY 02/08/17 02/08/17 History Allergies Allergy/AdvReac Type Severity Reaction Status Date / Time lisinopril Allergy Swelling Verified 02/08/17 16:17 of Lip/Tongue/Throat - Constitutional Constitutional: Present: fatigue, weight gain. Absent: chills, fever(s) - EENT Eyes: Absent: loss of vision Ears: Absent: decreased hearing Nose, mouth and throat: Absent: dysphagia, headache(s), sinus pressure - Cardiovascular Cardiovascular: Present: dyspnea on exertion, edema, orthopnea. Absent: chest pain at rest, chest pain with activity - Respiratory Respiratory: Present: cough, wheezing, snoring, change in phlegm color. Absent : hemoptysis, pain on inspiration - Gastrointestinal Gastrointestinal: Present: constipation. Absent: abdominal pain, change in bowel habits, dysphagia, nausea, vomiting - Genitourinary Genitourinary: Present: difficulty urinating, dysuria. Absent: hematuria - Musculoskeletal Musculoskeletal: Absent: arthralgias, muscle weakness - Neurological Neurological: Absent: abnormal speech, confusion, focal weakness, paresthesias - Psychiatric Psychiatric: Absent: anxiety Exam (Pulmonay) H&P - Constitutional Vitals: Period Temp Pulse Resp BP Sys/Lew Pulse Ox Last 24 Hr 96.6 F-98 F 49-82 11-28 115-140/44-86 86-97 General appearance: no acute distress (The patient is walking around and looks comfortable at present ), morbidly obese - Head Head exam: Present: normal inspection, normocephalic - Eye Eye exam: Present: EOMI. Absent: scleral icterus Pupils: Present: MICHELLE - ENT ENT exam: Present: other (Class III Mallampati exam, no sinus tenderness) - Neck Neck exam: Present: other (He does have a large neck). Absent: lymphadenopathy , thyromegaly - Respiratory Respiratory exam: Present: prolonged expiratory phase, rhonchi. Absent: accessory muscle use, wheezes - Cardiovascular Cardiovascular exam: Present: regular rate and rhythm. Absent: gallop, systolic murmur - GI/Abdominal GI/Abdominal exam: Present: normal bowel sounds, soft. Absent: organomegaly, tenderness - Extremities Exam Extremities exam: Present: edema (His leg swelling is better). Absent: calf tenderness - Neurological Exam Neurological exam: Present: alert, oriented X3, CN II-XII intact. Absent: motor sensory deficit - Psychiatric Psychiatric exam: Present: normal affect, normal mood - Skin Skin exam: Present: warm, dry Medical,Surgical,& Family Hx - Medical History Cardio: History of: CHF, Hypertension Neurology: No history of: Seizures HEENT: History of: Eye Problem (Wear Glass) No history of: Ear Problem Endocrine: History of: Diabetes Mellitus (NIDDM), Dyslipidemia Rheumatology: History of;: Gout (started in 2005) Respiratory: History of: COPD, Obstructive Sleep Apnea, Respiratory Problems (2 Liter oxygen at home at all times) Genitourinary: History of: Prostate Problems (BPH with episode of retention February 2016) - Surgical History Abdominal Surgeries: Patient denies: Splenectomy - Family History Family History: Reports;: Family Cancer (MOTHER), Family Diabetes (FATHER), Family Hypertension (FATHER) Denies;: Family Anesthesia Reaction, Family Heart Disease, Family Psychiatric Problems, Family Stroke - Social History Smoking Status: Current every day smoker Frequency of Alcohol Use: None Type of Drug Use: None Results - Labs CBC & BMP: 02/11/17 05:16 02/11/17 05:15 Labs: PO2 is 55.9 with a PCO2 of 46 with a pH of 7.4 - Diagnostic Findings Procedure: Chest x-ray: image reviewed by me, report reviewed by me (Chest x- ray does show increased infiltrates bilaterally.)
[2017-02-11] MEDS: ATORVASTATIN 40 MG TABLET PO SCH (10:19)
[2017-02-11] MEDS: FEBUXOSTAT 80 MG TABLET PO SCH (10:19)
[2017-02-11] MEDS: ASPIRIN EC 81 MG TABLET PO SCH (10:19)
[2017-02-11] MEDS: PANTOPRAZOLE 40 MG TABLET PO SCH (10:19)
[2017-02-11] MEDS: CARVEDILOL 6.25 MG TABLET PO SCH ×2 (10:19→20:15)
--- NOTE | 2017-02-11 10:42 | Hospitalist Progress Note ---
Assessment and Plan (1) CHF (congestive heart failure) Status: Chronic Assessment and plan: Patient had acute pulmonary edema and a chest x-ray at admission. This was acute diastolic congestive heart failure with preserved left ventricular function. The echocardiogram does show concentric enlargement of the left ventricle. Patient is doing better at this time better controlled blood pressure Current Visit: No (2) COPD (chronic obstructive pulmonary disease) Status: Chronic Assessment and plan: Patient is not wheezing at this time will de-escalate systemic steroids to Medrol Dosepak. Continue nebulizers of beta-2 agonist and ipratropium bromide Current Visit: No (3) UTI (urinary tract infection) Status: Acute Assessment and plan: We will repeat UA and reflex urine culture if still pyuric. Has been on broad- spectrum antibiotics covering the lungs and the year Current Visit: No Qualifiers: Urinary tract infection type: acute cystitis (4) Diabetes Status: Chronic Assessment and plan: Morning sugar today is 127 mg percent. Postprandial blood sugars have been in the 180s 170s. Continue sliding scale coverage With the de-escalation of systemic steroids of the expected sugars to be better Current Visit: No Qualifiers: Diabetes mellitus type: type 2 (5) Hypertension Status: Chronic Assessment and plan: Continue antihypertensive. Patient picked up by a hospital medicine tomorrow. Current Visit: No Qualifiers: Hypertension type: essential hypertension Qualified Code(s): I10 - Essential (primary) hypertension (6) Community acquired pneumonia Status: Ruled-out Current Visit: No Hospitalist: Subjective Interval history: Patient has been seen and interviewed and examined and chart has been reviewed. He has just been transferred from CCU and is been transferred to my service they want me to see him since morning. She has been in the CCU withDiagnosis ofBilateral pulmonary infiltrates on chest x-ray suggesting pneumonia history of COPD exacerbation history of cor pulmonale history of morbid obesity history of sleep apnea. He has no acute distress at this time. Is on antibiotic There was started admission including the piperacilli/tazobactam and levofloxacin and doing well. Section was done at admission that showed cephalization of blood vessels and possible bibasilar infiltrates. Has been no repeat chest x-ray. He also had an echocardiogram done on the that revealed normal left ventricular systolic function ~55-60% moderate concentric left ventricular hypertrophy left and right atrial size and function seem to be normal. Exam - Constitutional Vitals: Period Temp Pulse Resp BP Sys/Lew Pulse Ox Last 24 Hr 96.6 F-98 F 49-82 11-28 125-157/79-95 86-97 General appearance: morbidly obese - Head Head exam: Present: normal inspection, normocephalic - Eye Eye exam: Present: EOMI, other (Anicteric sclera no conjunctival petechiae) Pupils: Present: MICHELLE - ENT ENT exam: Present: normal exam - Neck Neck exam: Present: normal inspection - Respiratory Respiratory exam: Present: clear to auscultation bilaterally - Cardiovascular Cardiovascular exam: Present: regular rate and rhythm - GI/Abdominal GI/Abdominal exam: Present: normal bowel sounds - Extremities Exam Extremities exam: Present: full ROM - Back Exam Back exam: Present: normal inspection - Neurological Exam Neurological exam: Present: alert, oriented X3, CN II-XII intact - Psychiatric Psychiatric exam: Present: normal affect, normal mood - Skin Skin exam: Present: normal color, warm, dry Results - Labs CBC & BMP: 02/11/17 05:16 02/11/17 05:15 Lab Results: I have reviewed the past 24 hour labs (Note is a leukocytosis of 17 ,600 today Patient is on methylprednisone IV. Doing well enough to de-escalate steroids for Medrol Fam at this time. Electrolytes are normal)
[2017-02-11] MEDS: TAMSULOSIN 0.4 MG CAPSULE PO SCH (10:46)
--- NOTE | 2017-02-11 12:37 | Sleep Medicine Progress Note ---
Assessment and Plan (1) Obstructive sleep apnea Status: Acute Assessment and plan: Continue her present treatment with outpatient sleep study after discharge. Current Visit: Yes (2) Hypertension Status: Chronic Current Visit: No Qualifiers: Hypertension type: essential hypertension Qualified Code(s): I10 - Essential (primary) hypertension (3) Diabetes Status: Chronic Current Visit: No Qualifiers: Diabetes mellitus type: type 2 Sleep Medicine Subjective Interval history: Patient has been doing better with CPAP. He has been sleeping with it at night and feels like he is benefiting from it. We will continue present treatment while hospitalized and will be set up for follow-up sleep study after discharge. Exam (Progress Note) - Constitutional Vitals: Period Temp Pulse Resp BP Sys/Lew Pulse Ox Last 24 Hr 96.6 F-98 F 49-82 11-28 125-157/79-95 86-97 Exam: He is alert and responsive in no acute distress. Chest with good air movement and no focal wheeze or rhonchi. Cardiac exam reveals a regular rhythm without murmur or gallop. Abdomen soft nontender extremities without increased edema. Results - Labs CBC & BMP: 02/11/17 05:16 02/11/17 05:15 Lab Results: I have reviewed the past 24 hour labs
[2017-02-11] MEDS: LEVOFLOXACIN INJ 750 MG in PREMIX 1 EACH IV SCH (20:15)
[2017-02-11] MEDS: ENOXAPARIN 40 MG/0.4 ML SYRINGE SUBCUT SCH (20:15)
[2017-02-12] MEDS: PIPERACILLIN/TAZOBACTAM 3,375 MG in SODIUM CHLORIDE 0.9% 100 ML IV SCH (00:40)
[2017-02-12] MEDS: ALBUTEROL/IPRATROPIUM 3 ML NEB RESP TX SCH ×6 (02:49→23:33)
[2017-02-12] MEDS: methylPREDNISolone SOD SUC 40 MG/1 ML VIAL IV SCH (05:16)
[2017-02-12 06:06] LABS: Calcium 9.1 MG/DL (8.5-10.1); Potassium 4.5 MMOL/L (3.5-5.1)
--- NOTE | 2017-02-12 08:13 | Hospitalist Progress Note ---
Assessment and Plan - Time spent with patient Time spent with patient: Less than 30 minutes (1) CHF (congestive heart failure) Status: Chronic Assessment and plan: Patient had acute on chronic diastolic congestive heart failure with preserved LV function with ejection fraction noted to be 55-60% on echocardiogram performed on 02/09/17. We are continuing to optimize his medications and gently diurese. Will continue O2 and he will be scheduled for outpatient sleep studies. Current Visit: No Qualifiers: Congestive heart failure type: diastolic (2) COPD (chronic obstructive pulmonary disease) Status: Chronic Assessment and plan: Patient has history of COPD and is not wheezing at this time. Will continue O2 , nebulizer therapy, will convert to oral corticosteroids and continue antibiotics for possible mild coming to acquired pneumonitis. Current Visit: No (3) Diabetes Status: Chronic Assessment and plan: Continuing Accu-Cheks and sliding scale. Suspect control will improve with de- escalation of steroids. Current Visit: No Qualifiers: Diabetes mellitus type: type 2 (4) Hypertension Status: Chronic Assessment and plan: Currently well controlled. Continue current medical therapy. Current Visit: No Qualifiers: Hypertension type: essential hypertension Qualified Code(s): I10 - Essential (primary) hypertension (5) Community acquired pneumonia Status: Ruled-out Current Visit: No (6) Obstructive sleep apnea Status: Chronic Assessment and plan: Patient has been seen by sleep medicine will continue with CPAP while here and arrange for sleep study post discharge. Current Visit: Yes (7) Obesity Status: Chronic Current Visit: No Hospitalist: Subjective Interval history: Mr. Beard states his breathing is much better but not yet back to baseline. He continues to have a cough with some productive "black" phlegm. He states his appetite is good. He denies any chest pain, nausea, vomiting, diarrhea, constipation. He tells me he does wear home O2 and has home nebulizers. Exam - Constitutional Vitals: Period Temp Pulse Resp BP Sys/Lew Pulse Ox Last 24 Hr 97.5 F-98.2 F 57-86 18-20 131-145/61-82 90-99 General appearance: no acute distress - Head Head exam: Present: normocephalic, atraumatic - Eye Eye exam: Present: EOMI Pupils: Present: MICHELLE - ENT ENT exam: Present: normal exam - Neck Neck exam: Present: normal inspection - Respiratory Respiratory exam: Present: clear to auscultation bilaterally. Absent: rales, rhonchi, wheezes - Cardiovascular Cardiovascular exam: Present: regular rate and rhythm. Absent: gallop, JVD, tachycardia - GI/Abdominal GI/Abdominal exam: Present: normal bowel sounds, soft. Absent: mass, tenderness - Extremities Exam Extremities exam: Present: edema (Trace). Absent: calf tenderness - Back Exam Back exam: Present: normal inspection - Neurological Exam Neurological exam: Present: alert, oriented X3, CN II-XII intact. Absent: motor sensory deficit - Psychiatric Psychiatric exam: Present: normal affect, normal mood. Absent: agitated, anxious - Skin Skin exam: Present: warm, dry. Absent: erythema, rash Results - Labs CBC & BMP: 02/11/17 05:16 02/12/17 04:30 Lab Results: I have reviewed the past 24 hour labs
[2017-02-12] MEDS: FEBUXOSTAT 80 MG TABLET PO SCH (09:38)
[2017-02-12] MEDS: CARVEDILOL 6.25 MG TABLET PO SCH ×2 (09:38→20:16)
[2017-02-12] MEDS: ASPIRIN EC 81 MG TABLET PO SCH (09:38)
[2017-02-12] MEDS: TAMSULOSIN 0.4 MG CAPSULE PO SCH ×2 (09:38→20:16)
[2017-02-12] MEDS: FUROSEMIDE 20 MG TABLET PO SCH ×2 (09:41→20:16)
[2017-02-12] MEDS: LEVOFLOXACIN 750 MG TABLET PO SCH (09:41)
[2017-02-12] MEDS: predniSONE 20 MG TABLET PO SCH (09:42)
--- NOTE | 2017-02-12 10:04 | Pulmonology Progress Note ---
Pulmonary - PN: Subj Interval history: Patient previously seen in the unit by Dr Gama, reported COPD and ERIC. Sitting up in bed with no complaints, feels ready to go home Exam (Progress Note) - Constitutional Vitals: Period Temp Pulse Resp BP Sys/Lew Pulse Ox Last 24 Hr 97.5 F-98.2 F 57-86 18-20 131-145/61-82 90-99 General appearance: no acute distress - Head Head exam: Present: normal inspection - Respiratory Respiratory exam: Present: clear to auscultation bilaterally - Cardiovascular Cardiovascular exam: Present: regular rate and rhythm - GI/Abdominal GI/Abdominal exam: Present: normal bowel sounds Results - Labs CBC & BMP: 02/11/17 05:16 02/12/17 04:30 Lab Results: I have reviewed the past 24 hour labs Assessment and Plan (1) COPD (chronic obstructive pulmonary disease) Status: Chronic Assessment and plan: Patient stabl, no signs or symptoms of exacerbation at this time. Appears ready for discharge from a pulmonary stand point. Current Visit: No
[2017-02-12] MEDS: PANTOPRAZOLE 40 MG TABLET PO SCH (12:26)
[2017-02-12] MEDS ORDERED: PRAVASTATIN 20 MG TABLET PO SCH (19:00)
--- NOTE | 2017-02-12 19:24 | XRay Report ---
History: Dyspnea Date: 02/12/2017 Study: Chest x-ray PA and lateral Comparison exam: February 08, 2017 There is stable mild cardiomegaly. The mediastinal contours are unchanged. The pulmonary vasculature is upper normal. There is some continued groundglass and perhaps reticulonodular interstitial disease in the lower lungs. This is grossly similar. There is no new or worsening infiltrate. There is no significant pleural effusion. Osseous structures are similar with moderate thoracic spondylosis. Impression: No gross overall change from the previous study PROCEDURE INTERPRETED AT [facility] DEPARTMENT OF RADIOLOGY Final Report Signed by: Dr. Lucille Barth
[2017-02-12] MEDS: ENOXAPARIN 40 MG/0.4 ML SYRINGE SUBCUT SCH (20:16)
[2017-02-13] MEDS: ALBUTEROL/IPRATROPIUM 3 ML NEB RESP TX SCH ×2 (04:15→07:12)
[2017-02-13 05:16] LABS: Basophils % 0.2 % (0.0-0.8); Eosinophils % 0.1 % (0.00-10.9); Hematocrit 51.2 VOL% (42.0-52.0); Hemoglobin 16.7 GM/DL (14.0-18.0); Immature Granulocytes % 0.9 %; Immature Granulocytes Absolute 0.11 #; Lymphocytes % 15.9 % (21.2-54.2); Mean Corpuscular HGB Conc 32.6 GM/DL (32-36); Mean Corpuscular Hemoglobin 29 PG (27-34); Mean Corpuscular Volume 89.8 FL (87-102); Mean Platelet Volume 10.3 FL (9.6-12.0); Monocytes # 1.2 10*3/uL (0.11-0.8); Monocytes % 9.3 % (1.7-12.7); Neutrophils # 9.3 10*3/uL (1.4-7.4); Neutrophils % 73.6 % (38.7-73.9); Platelet Count 162 T/CUMM (130-400); Red Cell Distribution Width 14.6 % (9.3-17.3); White Blood Count 12.6 T/CUMM (4-12)
[2017-02-13 05:53] LABS: Calcium 9.8 MG/DL (8.5-10.1); Osmolality,Calculated 291.8 MOS/KG (273-304); Potassium 4.4 MMOL/L (3.5-5.1)
--- NOTE | 2017-02-13 07:42 | Discharge Summary ---
Hospital Course - Hospital Course Hospital Course: Mr. Beard is a 61-year-old -Faro[place] male brought to the emergency room with shortness of breath white sputum production decreased urine output and swollen feet but denies any fever. He does use home oxygen at 2 L by nasal cannula 24 hours a day and he does continue to smoke. He is morbidly obese and has severe obstructive sleep apnea but has been noncompliant with CPAP. He was admitted with bilateral pulmonary infiltrates on chest x-ray and therefore cultured and placed on empiric IV antibiotic therapy as well as O2 and nebulizer therapy. Corticosteroids were used for COPD exacerbation and Dr. Lopez saw the patient in consultation for follow-up for his sleep apnea. He was empirically placed on CPAP in the hospital and did well. Dr. Lim had recommended outpatient follow-up for re-titration of CPAP in order to obtain new equipment. Patient also was noted to have chronic diastolic congestive heart failure with preserved LV function with ejection fraction noted to be 55- 60% on echocardiogram performed on 02/09/17. His medications were optimized and he was gently diuresed. It is likely that acute decompensation of his diastolic congestive heart failure was more responsible for his dyspnea. He remains afebrile, oxygenating well on 2 L by nasal cannula, and it is felt that he had reached maximal benefit from hospital stay and can be discharged home with outpatient follow-up. - Time spent with patient Time with patient DS: Less than 30 minutes Diagnosis - Discharge Diagnosis (1) CHF (congestive heart failure) Status: Acute (2) COPD (chronic obstructive pulmonary disease) Status: Acute (3) Diabetes Status: Chronic (4) Hypertension Status: Chronic (5) Community acquired pneumonia Status: Ruled-out (6) Obstructive sleep apnea Status: Chronic (7) Obesity Status: Chronic Specialty Discharge - Follow Up or Referrals Follow up with: [facility] [place]Other] - 3 Days Keyona Lopez MD [Physician] - 2 Weeks Discharge Plan - Discharge Data Disposition: Disch To Home/Self Care Condition at Discharge: Stable Discharge Diet: diabetic diet Activity: resume usual activities as tolerated, wear oxygen at all times (2 L by nasal cannula) Hygiene: no restrictions Contact your physician if you experience:: fever over 101, Shortness of breath - Discharge Medications New Levofloxacin Tab [Levaquin Tab] 750 mg PO DAILY #7 tablet predniSONE TAB [PredniSONE] 10 mg PO DAILY #30 tablet Continue traMADol TAB [Ultram] 50 mg PO Q6H PRN PRN Reason: Pain Furosemide Tab [Lasix Tab] 20 mg PO BID Albuterol Sulfate [Proair HFA] 2 puff INH Q4H PRN PRN Reason: Shortness Of Breath/Wheezing Pravastatin Sodium 20 mg PO QPM Febuxostat [Uloric] 80 mg PO DAILY Tamsulosin [Flomax] 0.4 mg PO BID #60 capsule Pantoprazole Tab [Protonix Tab] 40 mg PO DAILY #14 tablet Carvedilol [Coreg] 6.25 mg PO BID Aspirin EC Tab 81 mg PO DAILY Discontinued Losartan Potassium 100 mg PO DAILY Atorvastatin [Lipitor] 40 mg PO DAILY - Follow Up or Referral Follow Up: [facility] [place] [place]Other] - 3 Days Keyona Lopez MD [Physician] - 2 Weeks - Forms/Instructions Additional Discharge Instructions: Schedule outpatient sleep study, continue home O2 2 L by nasal cannula at all times. Note that his discharge prednisone is 40 mg p.o. daily 3, 30 mg p.o. daily 3, 20 mg p.o. daily 3, 10 mg p.o. daily 3 then discontinue Exam - Constitutional Vitals: Period Temp Pulse Resp BP Sys/Lew Pulse Ox Last 24 Hr 97.6 F-98.2 F 57-75 17-20 123-154/57-90 86-99 General appearance: no acute distress, morbidly obese - Head Head exam: Present: normocephalic, atraumatic - Eye Eye exam: Present: EOMI Pupils: Present: MICHELLE - ENT ENT exam: Present: normal exam - Neck Neck exam: Present: normal inspection - Respiratory Respiratory exam: Present: clear to auscultation bilaterally. Absent: rales, rhonchi, wheezes - Cardiovascular Cardiovascular exam: Present: regular rate and rhythm. Absent: systolic murmur , tachycardia - GI/Abdominal GI/Abdominal exam: Present: normal bowel sounds, soft. Absent: mass, tenderness , rebound - Extremities Exam Extremities exam: Present: edema. Absent: calf tenderness - Back Exam Back exam: Present: normal inspection - Neurological Exam Neurological exam: Present: alert, oriented X3, CN II-XII intact. Absent: motor sensory deficit - Psychiatric Psychiatric exam: Present: normal affect, normal mood. Absent: agitated, anxious - Skin Skin exam: Present: warm, dry. Absent: rash Discharge Results Procedures and tests throughout hospitalization: Pending Orders 02/08/17 19:32 Blood Culture Stat Labs on day of discharge: Labs from last 24 hours 02/13/17 02/13/17 02/12/17 04:45 04:45 19:13 WBC 12.6 H RBC 5.70 H Hgb 16.7 Hct 51.2 MCV 89.8 MCH 29 MCHC 32.6 RDW 14.6 Plt Count 162 MPV 10.3 Neut % (Auto) 73.6 Lymph % (Auto) 15.9 L [place] % (Auto) 9.3 Eos % (Auto) 0.1 Baso % (Auto) 0.2 Neut # (Auto) 9.3 H Lymph # (Auto) 2.0 [place] # (Auto) 1.2 H Eos # (Auto) 0.0 Baso # (Auto) 0.0 Immature Gran % 0.9 Nucleated RBC % 0.0 Immature Gran # 0.11 Nucleated RBCs # 0.00 Sodium 144 Potassium 4.4 Chloride 107 Carbon Dioxide 29 Anion Gap 12.4 BUN 27 H Creatinine 1.10 GFR Calculation 125 BUN/Creatinine Ratio 24.00 H Glucose 114 H POC Glucose 142 H Calculated Osmolality 291.8 Calcium 9.8 02/12/17 02/12/17 02/12/17 15:55 10:45 08:11 WBC RBC Hgb Hct MCV MCH MCHC RDW Plt Count MPV Neut % (Auto) Lymph % (Auto) [place] % (Auto) Eos % (Auto) Baso % (Auto) Neut # (Auto) Lymph # (Auto) [place] # (Auto) Eos # (Auto) Baso # (Auto) Immature Gran % Nucleated RBC % Immature Gran # Nucleated RBCs # Sodium Potassium Chloride Carbon Dioxide Anion Gap BUN Creatinine GFR Calculation BUN/Creatinine Ratio Glucose POC Glucose 187 H 125 H 136 H Calculated Osmolality Calcium Preliminary micro results at discharge 02/08/17 19:32 Blood Culture - Preliminary Blood Micrococcus and Related species 02/08/17 18:27 Blood Culture - Preliminary Blood No growth at 3 days - Imaging and Cardiology Procedure: Chest x-ray: report reviewed by me DS: Provider Date of admission: 02/08/17 20:14 Primary care physician: . No PCP Attending physician on admission: Jose Cortez MD Consults: 02/08/17 21:52 Consult to Sleep Center [CONS] Routine Reason for Sleep Center: Sleep Center Physician Consult Comment: severe nick 02/08/17 22:26 Consult to Pastoral Services [CONS] Routine Comment: Pastoral Screen: Request Transplanter Orchid Visit Pastoral Screen Source of Request: Patient Name of Physician Requesting: Jose Cortez 02/10/17 13:22 Consult to Physician [CONS] Routine Comment: pulmonary infiltrate, morbid obesity, nick Consulting Provider: Giovani Senior Person Notified: roberto Date Notified: 02/10/17 Time Notified: 14:25 02/10/17 18:37 Consult to Physician [CONS] Routine Comment: Consulting Provider: Alvarez Gama Consulting Provider Notified: No When should Consulting Provider be notified: In am Consult to Specialist Group: Pulmonology When should Consulting Provider be notified: In am Person Notified: Dr Tenorio Date Notified: 02/12/17 Time Notified: 10:11 Consult Notification Comment: Discharging clinician: Moiz Monet Expected date of discharge: 02/13/17
[2017-02-13 08:23] VITALS: BP 146/77
[2017-02-13] MEDS: PANTOPRAZOLE 40 MG TABLET PO SCH (09:25)
[2017-02-13] MEDS: FEBUXOSTAT 80 MG TABLET PO SCH (09:25)
[2017-02-13] MEDS: ASPIRIN EC 81 MG TABLET PO SCH (09:25)
[2017-02-13] MEDS: FUROSEMIDE 20 MG TABLET PO SCH (09:25)
[2017-02-13] MEDS: LEVOFLOXACIN 750 MG TABLET PO SCH (09:25)
[2017-02-13] MEDS: predniSONE 20 MG TABLET PO SCH (09:25)
[2017-02-13] MEDS: TAMSULOSIN 0.4 MG CAPSULE PO SCH (09:25)
[2017-02-13] MEDS: CARVEDILOL 6.25 MG TABLET PO SCH (09:26)
== END 2017-02-13 10:36 | disposition home or self-care (01) | DRG 190 ==
LOC: EDBD → EDUNIT# → N.ED 16:08 → N.EDINP 19:56 → SUATTDRO 20:14 → N.CC 20:16 → N.5E 02-11 08:55
PROVIDERS: ADMIT Internal Medicine; ATTEND Hospitalist

== ENCOUNTER 2017-05-18 18:51 | Inpatient (IN) ==
--- NOTE | 2017-05-18 21:07 | Emergency Department Note ---
Arrival - Arrival Chief Complaint: Shortness of Breath Stated Complaint: SOB ED Nursing Triage Note: AMB TO ER WITH C/O SOB AND BLE EDEMA THAT STARTED 2 DAYS AGO. REPORTS HE STARTED HAVING PROBLEMS WITH SWELLING TO HIS BLE THAT STARTED SEVERAL MONTHS AGO AND WAS PLACED ON FLUID PILLS BUT DOESNT THINK THEY ARE STRONG ENOUGH. Mode of Arrival: Wheelchair Time Seen by Provider: 05/18/17 20:03 - History of Present Illness HPI Narrative: This is a 62-year-old male of descent with a history of diastolic dysfunction and a left ventricular ejection fraction of 55% documented in 2017, COPD who continues to still smoke and is on 2 L of nasal O2 at home, Obstructive sleep apnea on CPAP, morbid obesity, type 2 diabetes, hypertension, and gout who presents with worsening shortness of breath peripheral edema dyspnea on exertion. The patient has been compliant with his medications. Allergies/Adverse Reactions: Allergies Allergy/AdvReac Type Severity Reaction Status Date / Time lisinopril Allergy Swelling Verified 05/18/17 19:18 of Lip/Tongue/Throat Home Medications: Home Medications Medication Instructions Recorded Confirmed Type Albuterol Sulfate [Proair HFA] 2 puff INH Q4H PRN 02/03/16 05/18/17 History Tamsulosin [Flomax] 0.4 mg PO BID #60 capsule 02/25/16 05/18/17 Rx Aspirin EC Tab 81 mg PO QAM 02/08/17 05/18/17 History Carvedilol [Coreg] 6.25 mg PO BID 02/08/17 05/18/17 History Budesonide Neb [Pulmicort Respules] 0.5 mg RESP TX BID 05/18/17 05/18/17 History Chlorthalidone 25 mg PO QAM 05/18/17 05/18/17 History Colchicine 0.6 mg PO DAILY PRN 05/18/17 05/18/17 History Pantoprazole Tab [Protonix Tab] 40 mg PO QAM 05/18/17 05/18/17 History Review of System - Review of System Constitutional: Absent: fever, night sweats, weakness Eyes: Absent: redness, vision change Head/Ears/Nose/Throat: Absent: epistaxis, nasal drainage Respiratory: Present: respiratory distress Cardiovascular: Present: dyspnea on exertion, orthopnea, edema Gastrointestinal: Absent: diarrhea, constipation, hematemesis, melena Genitourinary male: Absent: hematuria, discharge, testicular pain Musculoskeletal: Present: joint swelling, leg pain. Absent: lower back pain, neck pain Skin: Absent: change in color, change in hair/nails, pruritus Neurological: Absent: numbness, paresthesias, confusion Psychiatric: Absent: suicidal thoughts, homicidal thoughts, auditory hallucinations Endocrine: Absent: heat intolerance, polydipsia, polyuria Hematological/Lymphatic: Absent: easy bruising, lymphadenopathy Allergic/Immunologic: Absent: urticaria, itchy eyes Medical,Surgical,& Family Hx - Medical History Cardio: History of: CHF, Hypertension Neurology: No history of: Seizures HEENT: History of: Eye Problem (Wear Glass) No history of: Ear Problem Endocrine: History of: Diabetes Mellitus (NIDDM), Dyslipidemia Rheumatology: History of;: Gout (started in 2005) Respiratory: History of: COPD, Obstructive Sleep Apnea, Respiratory Problems ( WEARS O2 AT HOME) Genitourinary: History of: Prostate Problems (BPH) - Surgical History Abdominal Surgeries: Patient denies: Splenectomy - Family History Family History: Reports;: Family Cancer (MOTHER), Family Diabetes (FATHER), Family Hypertension (FATHER) Denies;: Family Anesthesia Reaction, Family Heart Disease, Family Psychiatric Problems, Family Stroke - Social History Smoking Status: Current some day smoker Frequency of Alcohol Use: None Type of Drug Use: None Exam Vital Signs: Vital Signs Temperature 98.6 F 05/18/17 19:08 Pulse Rate 76 05/18/17 21:35 Respiratory Rate 20 05/18/17 21:35 Blood Pressure 132/93 05/18/17 19:08 O2 Sat by Pulse Oximetry 100 05/18/17 21:35 - General Exam limited due to: ALOC - Head Head exam: Present: atraumatic, normocephalic - Eye Eye exam: Present: PERRL, scleral icterus - ENT ENT exam: Present: normal exam, normal oropharynx - Neck Neck exam: Present: normal inspection, full ROM - Chest Chest inspection: Present: normal inspection - Respiratory Respiratory exam: Present: normal lung sounds bilaterally, prolonged expiratory phase - Cardiovascular Cardiovascular exam: Present: regular rate, normal rhythm - Abdominal Exam Abdominal exam: Present: soft, normal bowel sounds - exam: Present: normal inspection - Extremities Exam Extremities exam: Present: other (+4 pitting edema. Effusions bilateral knees) - Back Exam Back exam: Present: normal inspection, full ROM - Neurological Exam Neurological exam: Present: alert, oriented X3, CN II-XII intact - Psychiatric Psychiatric exam: Present: normal affect, normal mood - Skin Skin exam: Present: warm, dry Course Course Narrative: In spite of the oxygen of 2 L/min the patient remains hypoxic with an O2 sat of 83%. The venous blood gas does not show significant respiratory acidosis, the chest x-ray does not show definite infiltrate and there is no fever nor an elevated white blood cell count. The BNP is only 53 suggesting that congestive heart failure is not the cause of his hypoxemia together with a history of a left ventricular ejection fraction of 55%. The patient will be admitted to the hospital because of hypoxemia on the basis of COPD exacerbation. The hospitalist was contacted to write the admission orders. Results - Labs CBC & BMP: 05/18/17 19:50 05/18/17 19:50 Disposition Clinical Impression: COPD exacerbation, Hypoxemia Disposition: Still a Patient Additional Instructions: In spite of the oxygen of 2 L/min the patient remains hypoxic with an O2 sat of 83%. The venous blood gas does not show significant respiratory acidosis, the chest x-ray does not show definite infiltrate and there is no fever nor an elevated white blood cell count. The BNP is only 53 suggesting that congestive heart failure is not the cause of his hypoxemia together with a history of a left ventricular ejection fraction of 55%. The patient will be admitted to the hospital because of hypoxemia on the basis of COPD exacerbation. The hospitalist was contacted to write the admission orders.
[2017-05-18] MEDS ORDERED: FUROSEMIDE 40 MG/4 ML VIAL IV STA (21:21)
[2017-05-18] MEDS ORDERED: methylPREDNISolone SOD SUC 125 MG/2 ML VIAL IV STA (21:21)
[2017-05-18] MEDS ORDERED: ALBUTEROL/IPRATROPIUM 3 ML NEB RESP TX STA (21:22)
[2017-05-18 21:32] LABS: Basophils # 0.1 10*3/uL (0.0-0.2); Basophils % 0.7 % (0.0-0.8); Eosinophils # 0.2 10*3/uL (0.0-0.87); Eosinophils % 2.6 % (0.00-10.9); Hematocrit 53.5 VOL% (42.0-52.0); Hemoglobin 17.5 GM/DL (14.0-18.0); Immature Granulocytes % 0.3 %; Immature Granulocytes Absolute 0.02 #; Lymphocytes # 2.1 10*3/uL (1.4-4.0); Lymphocytes % 27.4 % (21.2-54.2); Mean Corpuscular HGB Conc 32.7 GM/DL (32-36); Mean Corpuscular Hemoglobin 29 PG (27-34); Mean Corpuscular Volume 88.6 FL (87-102); Mean Platelet Volume 10.9 FL (9.6-12.0); Monocytes # 0.9 10*3/uL (0.11-0.8); Monocytes % 11.8 % (1.7-12.7); Neutrophils # 4.4 10*3/uL (1.4-7.4); Neutrophils % 57.2 % (38.7-73.9); Platelet Count 207 T/CUMM (130-400); Red Blood Count 6.04 MC/CUMM (3.8-5.5); Red Cell Distribution Width 14.6 % (9.3-17.3); White Blood Count 7.6 T/CUMM (4-12)
[2017-05-18 21:40] LABS: VBG HCO3 27.4 MEQ/L (24-28); VBG Oxygen Saturation 80.6 %; VBG PCO2 63.6 MMHG (41-51); VBG PH 7.326; VBG PO2 49.6 MMHG (17-40)
[2017-05-18 21:42] LABS: Alanine Aminotransferase 25 U/L (16-61); Albumin 2.9 G/DL (3.4-5.0); Alkaline Phosphatase 165 U/L (45-117); Aspartate Amino Transferase 15 U/L (0-37); Blood Urea Nitrogen 17 MG/DL (7-18); Calcium 9.1 MG/DL (8.5-10.1); Glucose 120 MG/DL (74-106); Potassium 4.1 MMOL/L (3.5-5.1); Sodium 143 MMOL/L (136-145); Total Protein 6.5 G/DL (6.4-8.3); Troponin I Only < 0.015 NG/ML (0.00-0.045)
[2017-05-18] MEDS ORDERED: FUROSEMIDE 40 MG/4 ML VIAL ONE (22:06)
[2017-05-18] MEDS ORDERED: methylPREDNISolone SOD SUC 125 MG/2 ML VIAL ONE (22:06)
[2017-05-18] MEDS ORDERED: hydrALAZINE 20 MG/1 ML VIAL IV STA (22:55)
[2017-05-18] MEDS ORDERED: hydrALAZINE 20 MG/1 ML VIAL ONE (23:18)
[2017-05-18] MEDS ORDERED: MAGNESIUM SULF RIDER 2 GM in PREMIX 1 EACH IV PRN (23:49)
[2017-05-18] MEDS ORDERED: MAGNESIUM SULF RIDER 4 GM in PREMIX 1 EACH IV PRN (23:49)
[2017-05-18] MEDS ORDERED: ALBUTEROL 2.5 MG/3 ML NEB RESP TX PRN (23:49)
[2017-05-18] MEDS ORDERED: ACETAMINOPHEN 325 MG TABLET PO PRN (23:49)
--- NOTE | 2017-05-19 00:03 | Hospitalist History & Physical ---
Assessment and Plan (1) Pedal edema Status: Resolved Current Visit: No (2) Obesity Status: Chronic Current Visit: No (3) Hypertension Status: Chronic Current Visit: No Qualifiers: Hypertension type: essential hypertension Qualified Code(s): I10 - Essential (primary) hypertension (4) Unspecified sleep apnea Status: Acute Current Visit: No (5) Chronic diastolic CHF (congestive heart failure), NYHA class 2 Status: Acute Current Visit: No (6) Cor pulmonale, chronic Status: Chronic Current Visit: No (7) COPD exacerbation Status: Acute Current Visit: Yes (8) Hypoxemia Status: Acute Assessment and plan: Our plans for this patient will be admitting him to our service. Will schedule breathing treatments for this patient. Will consult Dr. Johnson Gama. Patient is a CO2 retainer. He still continues to smoke. Will continue other meds as appropriate. Put on low-dose steroids. For his lower extremity edema we will give him a some IV Lasix to see if we can help with symptomatic relief. Patient is stable enough to go on the floor. Patient and I discussed the need for him to quit smoking. Approximately 3 minutes was spent on this discussion. Current Visit: Yes History of Present Illness Chief complaint: Shortness of breath History of present illness: Mr. Zamudio is a 62 year old male with past medical history significant for diastolic heart failure hypertension COPD who is been experiencing lower extremity edema times several months. He reports that the edema goes down if he raises his legs up but when he walks it increases. Per my physical exam it looks pretty chronic. He does not have systolic heart failure but diastolic heart failure. His other main problem is his COPD he still continues to smoke on occasion is seen Dr. Gama in the past. He reports that he has had increased wheezing times past 2 days he denies any fever. He is on home O2. Patient came up to our hospital for further evaluation. I was consulted for admission. Home Medications Medication Instructions Recorded Confirmed Type Albuterol Sulfate [Proair HFA] 2 puff INH Q4H PRN 02/03/16 05/18/17 History Tamsulosin [Flomax] 0.4 mg PO BID #60 capsule 02/25/16 05/18/17 Rx Aspirin EC Tab 81 mg PO QAM 02/08/17 05/18/17 History Carvedilol [Coreg] 6.25 mg PO BID 02/08/17 05/18/17 History Budesonide Neb [Pulmicort Respules] 0.5 mg RESP TX BID 05/18/17 05/18/17 History Chlorthalidone 25 mg PO QAM 05/18/17 05/18/17 History Colchicine 0.6 mg PO DAILY PRN 05/18/17 05/18/17 History Pantoprazole Tab [Protonix Tab] 40 mg PO QAM 05/18/17 05/18/17 History Allergies Allergy/AdvReac Type Severity Reaction Status Date / Time lisinopril Allergy Swelling Verified 05/18/17 19:18 of Lip/Tongue/Throat Medical,Surgical,& Family Hx - Medical History Cardio: History of: CHF, Hypertension Neurology: No history of: Seizures HEENT: History of: Eye Problem (Wear Glass) No history of: Ear Problem Endocrine: History of: Diabetes Mellitus (NIDDM), Dyslipidemia Rheumatology: History of;: Gout (started in 2005) Respiratory: History of: COPD, Obstructive Sleep Apnea, Respiratory Problems ( WEARS O2 AT HOME) Genitourinary: History of: Prostate Problems (BPH) - Surgical History Abdominal Surgeries: Patient denies: Splenectomy - Family History Family History: Reports;: Family Cancer (MOTHER), Family Diabetes (FATHER), Family Hypertension (FATHER) Denies;: Family Anesthesia Reaction, Family Heart Disease, Family Psychiatric Problems, Family Stroke - Social History Smoking Status: Current some day smoker Frequency of Alcohol Use: None Type of Drug Use: None 12 point system: reviewed and no additional remarkable complaints except as stated Exam - Constitutional Vitals: Period Temp Pulse Resp BP Sys/Lew Pulse Ox Last 24 Hr 98.6 F-98.6 F 76-93 16-24 132-132/93-93 82-100 General appearance: morbidly obese - Head Head exam: Present: normal inspection - Eye Eye exam: Present: EOMI Pupils: Present: MICHELLE - ENT ENT exam: Present: normal exam - Neck Neck exam: Present: normal inspection - Respiratory Respiratory exam: Present: wheezes - Cardiovascular Cardiovascular exam: Present: regular rate and rhythm - GI/Abdominal GI/Abdominal exam: Present: normal bowel sounds - Extremities Exam Extremities exam: Present: edema - Back Exam Back exam: Present: normal inspection - Neurological Exam Neurological exam: Present: alert, oriented X3 - Psychiatric Psychiatric exam: Present: normal affect, normal mood - Skin Skin exam: Present: normal color Results - Labs CBC & BMP: 05/18/17 19:50 05/18/17 19:50
[2017-05-19] MEDS: ALBUTEROL/IPRATROPIUM 3 ML NEB RESP TX SCH ×4 (01:47→19:56)
[2017-05-19] MEDS ORDERED: COLCHICINE 0.6 MG TABLET PO PRN (02:00)
[2017-05-19] MEDS: ENOXAPARIN 40 MG/0.4 ML SYRINGE SUBCUT SCH (02:04)
[2017-05-19] MEDS: TAMSULOSIN 0.4 MG CAPSULE PO SCH ×3 (02:06→21:32)
[2017-05-19] MEDS: CARVEDILOL 6.25 MG TABLET PO SCH ×3 (02:06→21:32)
[2017-05-19] MEDS: cefTRIAXone 1,000 MG in SODIUM CHLORIDE 0.9% 100 ML IV SCH (02:06)
--- NOTE | 2017-05-19 07:01 | XRay Report ---
Portable chest Date: 05/18/2017 Clinical history: Chest pain, shortness of breath Comparison: 02/12/2017 Technique: Portable AP sitting chest Findings: Stable cardiomegaly with more prominent diffuse parenchymal findings. Stable mediastinum with degenerative changes. Impression: Cardiomegaly with progressive mild CHF/pneumonitis with underlying chronic scarring. PROCEDURE INTERPRETED AT [facility] DEPARTMENT OF RADIOLOGY Final Report Signed by: Dr. Ailyn Slater
[2017-05-19 07:04] LABS: Basophils % 0.3 % (0.0-0.8); Hematocrit 57.2 VOL% (42.0-52.0); Hemoglobin 18.5 GM/DL (14.0-18.0); Immature Granulocytes % 0.8 %; Immature Granulocytes Absolute 0.05 #; Lymphocytes # 0.5 10*3/uL (1.4-4.0); Lymphocytes % 8.3 % (21.2-54.2); Mean Corpuscular HGB Conc 32.3 GM/DL (32-36); Mean Corpuscular Hemoglobin 29 PG (27-34); Mean Corpuscular Volume 89.9 FL (87-102); Mean Platelet Volume 11.2 FL (9.6-12.0); Monocytes % 0.5 % (1.7-12.7); Neutrophils # 5.4 10*3/uL (1.4-7.4); Neutrophils % 90.1 % (38.7-73.9); Platelet Count 218 T/CUMM (130-400); Red Blood Count 6.36 MC/CUMM (3.8-5.5); Red Cell Distribution Width 15.1 % (9.3-17.3)
[2017-05-19 07:45] LABS: Albumin 3.1 G/DL (3.4-5.0); Bilirubin,Total 0.6 MG/DL (0.2-1.0); Calcium 9.5 MG/DL (8.5-10.1); Osmolality,Calculated 289.3 MOS/KG (273-304); Potassium 4.5 MMOL/L (3.5-5.1); Total Protein 7.3 G/DL (6.4-8.3)
--- NOTE | 2017-05-19 08:19 | EKG Report ---
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
[2017-05-19] MEDS: predniSONE 20 MG TABLET PO SCH (08:21)
[2017-05-19] MEDS: FUROSEMIDE 40 MG/4 ML VIAL IV SCH ×2 (08:21→16:19)
[2017-05-19] MEDS: CHLORTHALIDONE 25 MG TABLET PO SCH (08:21)
[2017-05-19] MEDS: PANTOPRAZOLE 40 MG TABLET PO SCH (08:21)
[2017-05-19] MEDS: ASPIRIN EC 81 MG TABLET PO SCH (08:21)
--- NOTE | 2017-05-19 09:40 | Pulmonology Consult Note ---
Assessment and Plan (1) CHF (congestive heart failure) Status: Acute Assessment and plan: The patient probably does have a component of mild CHF. He says he is diuresing well now. Current Visit: No Qualifiers: Congestive heart failure type: diastolic (2) COPD (chronic obstructive pulmonary disease) Status: Acute Assessment and plan: Patient has known COPD and will continue with steroids and bronchodilator therapy. Current Visit: No (3) Diabetes Status: Chronic Assessment and plan: His glucoses will be monitored while on steroids. Current Visit: No Qualifiers: Diabetes mellitus type: type 2 (4) Obesity Status: Chronic Assessment and plan: He has a very large patient Current Visit: No (5) Hypertension Status: Chronic Assessment and plan: We will continue with his blood pressure medicine. Current Visit: No Qualifiers: Hypertension type: essential hypertension Qualified Code(s): I10 - Essential (primary) hypertension (6) Nicotine addiction Status: Acute Assessment and plan: We will try him on a nicotine patch. Current Visit: No (7) Chronic respiratory failure Status: Acute Assessment and plan: The patient has chronic respiratory insufficiency and certainly needs to quit smoking. He will continue with low flow oxygen and bronchodilator therapy. Current Visit: No (8) Cor pulmonale, chronic Status: Chronic Assessment and plan: The patient has a component of cor pulmonale. He is noncompliant with his sleep apnea treatment. He certainly needs to quit smoking. Current Visit: No History of Present Illness Chief complaint: Shortness of breath History of present illness: Mr. Zamudio is a 62 year old black male that has a long history of obesity, COPD, hypertension, diabetes, and obstructive sleep apnea. He has a component of cor pulmonale along with polycythemia. Unfortunately he still smokes and is noncompliant with CPAP. He does use oxygen at home. He came in with more swelling and shortness of breath past few days. He says he is diuresing well and feels a little better. He coughs some but has not had any fever or chest pain. He says he is breathing a little better today. Home Medications Medication Instructions Recorded Confirmed Type Albuterol Sulfate [Proair HFA] 2 puff INH Q4H PRN 02/03/16 05/19/17 History Tamsulosin [Flomax] 0.4 mg PO BID #60 capsule 02/25/16 05/19/17 Rx Aspirin EC Tab 81 mg PO QAM 02/08/17 05/19/17 History Carvedilol [Coreg] 6.25 mg PO BID 02/08/17 05/19/17 History Budesonide Neb [Pulmicort Respules] 0.5 mg RESP TX BID 05/18/17 05/19/17 History Chlorthalidone 25 mg PO QAM 05/18/17 05/19/17 History Colchicine 0.6 mg PO DAILY PRN 05/18/17 05/19/17 History Pantoprazole Tab [Protonix Tab] 40 mg PO QAM 05/18/17 05/19/17 History Allergies Allergy/AdvReac Type Severity Reaction Status Date / Time lisinopril Allergy Swelling Verified 05/18/17 19:18 of Lip/Tongue/Throat - Constitutional Constitutional: Present: fatigue, weight gain. Absent: chills, fever(s) - EENT Eyes: Absent: loss of vision Ears: Absent: decreased hearing Nose, mouth and throat: Absent: dysphagia, headache(s), sinus pressure - Cardiovascular Cardiovascular: Present: dyspnea, edema, orthopnea. Absent: chest pain at rest - Respiratory Respiratory: Present: cough, dyspnea, wheezing. Absent: hemoptysis, change in phlegm color - Gastrointestinal Gastrointestinal: Absent: abdominal pain, dysphagia, nausea, vomiting - Genitourinary Genitourinary: Present: urinary frequency. Absent: difficulty urinating, dysuria - Musculoskeletal Musculoskeletal: Present: arthralgias. Absent: muscle weakness - Neurological Neurological: Absent: abnormal speech, focal weakness, paresthesias Exam (Pulmonay) H&P - Constitutional Vitals: Period Temp Pulse Resp BP Sys/Lew Pulse Ox Last 24 Hr 97.4 F-98.6 F 76-93 16-24 112-132/71-93 82-100 General appearance: no acute distress (He is comfortable sitting up in a chair) , morbidly obese - Head Head exam: Present: normal inspection, normocephalic - Eye Eye exam: Present: EOMI. Absent: scleral icterus Pupils: Present: MICHELLE - ENT ENT exam: Present: normal exam - Neck Neck exam: Present: normal inspection. Absent: lymphadenopathy, thyromegaly - Respiratory Respiratory exam: Present: decreased breath sounds, rales, rhonchi - Cardiovascular Cardiovascular exam: Present: regular rate and rhythm. Absent: gallop, systolic murmur - GI/Abdominal GI/Abdominal exam: Present: normal bowel sounds, soft. Absent: organomegaly, tenderness - Extremities Exam Extremities exam: Present: edema (He does have 2+ edema.). Absent: calf tenderness - Neurological Exam Neurological exam: Present: alert, oriented X3, CN II-XII intact - Psychiatric Psychiatric exam: Present: normal affect - Skin Skin exam: Present: warm, dry Medical,Surgical,& Family Hx - Medical History Cardio: History of: CHF, Hypertension Neurology: No history of: Seizures HEENT: History of: Eye Problem (Wear Glass) No history of: Ear Problem Endocrine: History of: Diabetes Mellitus (NIDDM), Dyslipidemia Rheumatology: History of;: Gout (started in 2005) Respiratory: History of: COPD, Obstructive Sleep Apnea, Respiratory Problems ( WEARS O2 AT HOME) Genitourinary: History of: Prostate Problems (BPH) - Surgical History Cardiac Surgeries: Patient Denies: Cardiac Catheterization Neurologic Surgeries: Patient denies: Neurologic Surgery Abdominal Surgeries: Patient denies: Splenectomy - Family History Family History: Reports;: Family Cancer (MOTHER), Family Diabetes (FATHER), Family Hypertension (FATHER) Denies;: Family Anesthesia Reaction, Family Heart Disease, Family Psychiatric Problems, Family Stroke - Social History Smoking Status: Current some day smoker Frequency of Alcohol Use: None Type of Drug Use: None Results - Labs CBC & BMP: 05/19/17 04:42 05/19/17 04:42 Labs: His PO2 is 49 with a PCO2 of 63 and a pH of 7.32 - Diagnostic Findings Procedure: Chest x-ray: image reviewed by me, report reviewed by me (Chest x- ray shows cardiomegaly with mild interstitial changes bilaterally.) Specialty Discharge - Follow Up or Referrals
[2017-05-19] MEDS: NICOTINE 21 MG/24 HR PATCH TRANSDERM SCH (11:57)
[2017-05-19] MEDS: THEOPHYLLINE ER (24 HR) 300 MG CAPSULE PO SCH (11:57)
[2017-05-19 13:36] LABS: Allen Test Positive
[2017-05-19 13:37] LABS: ABG HCO3 28.6 MMOL/L (20-26); ABG Oxygen Saturation 89.7 % (95-100); ABG PCO2 60.3 MM HG (35-48); ABG PH 7.294 (7.35-7.45); ABG PO2 58.6 MM HG (80-95); ABG TCO2 30.5 MMOL/L (23-27)
[2017-05-19] MEDS: INSULIN REGULAR 100 UNIT/ML SUBCUT SCH ×2 (16:19→21:32)
[2017-05-20] MEDS: ALBUTEROL/IPRATROPIUM 3 ML NEB RESP TX SCH ×4 (00:27→19:09)
[2017-05-20] MEDS: ENOXAPARIN 40 MG/0.4 ML SYRINGE SUBCUT SCH (01:13)
[2017-05-20] MEDS: cefTRIAXone 1,000 MG in SODIUM CHLORIDE 0.9% 100 ML IV SCH (01:13)
--- NOTE | 2017-05-20 08:48 | Pulmonology Progress Note ---
Pulmonary - PN: Subj Interval history: The patient is a 62-year-old black man with long history of COPD and obesity along with hypertension and diabetes. He has a component of cor pulmonale. He has not the most compliant patient. He came in with shortness of breath and swelling but is doing better now. He has had fairly good diuresis and he feels like his breathing is easier. He is not coughing up much now and no chest pain. He feels like his swelling is better. He is comfortable on low-flow oxygen. I do not think he uses his CPAP much. Exam (Progress Note) - Constitutional Vitals: Period Temp Pulse Resp BP Sys/Lew Pulse Ox Last 24 Hr 96.6 F-98.8 F 84-101 16-22 110-152/67-95 88-99 Exam: General appearance: no acute distress (He is comfortable sitting up in a chair) , morbidly obese, he looks like he feels better today. - Head Head exam: Present: normal inspection, normocephalic - Eye Eye exam: Present: EOMI. Absent: scleral icterus Pupils: Present: MICHELLE - ENT ENT exam: Present: normal exam - Neck Neck exam: Present: normal inspection. Absent: lymphadenopathy, thyromegaly - Respiratory Respiratory exam: Present: He has somewhat decreased breath sounds throughout but is moving air okay with just some minimal rhonchi now. - Cardiovascular Cardiovascular exam: Present: regular rate and rhythm. Absent: gallop, systolic murmur - GI/Abdominal GI/Abdominal exam: Present: normal bowel sounds, soft. Absent: organomegaly, tenderness - Extremities Exam Extremities exam: Present: edema (He does have 2+ edema.). Absent: calf tenderness - Neurological Exam Neurological exam: Present: alert, oriented X3, CN II-XII intact - Psychiatric Psychiatric exam: Present: normal affect - Skin Skin exam: Present: warm, dry Results - Labs CBC & BMP: 05/19/17 04:42 05/19/17 04:42 Assessment and Plan (1) CHF (congestive heart failure) Status: Acute Assessment and plan: The patient probably does have a component of mild CHF. He says he is diuresing well now. He says he is breathing better today. Current Visit: No Qualifiers: Congestive heart failure type: diastolic (2) COPD (chronic obstructive pulmonary disease) Status: Acute Assessment and plan: Patient has known COPD and will continue with steroids and bronchodilator therapy. His respiratory status is quite stable. Current Visit: No (3) Diabetes Status: Chronic Assessment and plan: His glucoses will be monitored while on steroids. His glucose is 204 today. Current Visit: No Qualifiers: Diabetes mellitus type: type 2 (4) Obesity Status: Chronic Assessment and plan: He has a very large patient. Current Visit: No (5) Hypertension Status: Chronic Assessment and plan: We will continue with his blood pressure medicine. Current Visit: No Qualifiers: Hypertension type: essential hypertension Qualified Code(s): I10 - Essential (primary) hypertension (6) Nicotine addiction Status: Acute Assessment and plan: We will try him on a nicotine patch. He seems to be doing okay at present. Current Visit: No (7) Chronic respiratory failure Status: Acute Assessment and plan: The patient has chronic respiratory insufficiency and certainly needs to quit smoking. He will continue with low flow oxygen and bronchodilator therapy. His breathing seems to be comfortable at present. He can probably go home in a day or so. Current Visit: No (8) Cor pulmonale, chronic Status: Chronic Assessment and plan: The patient has a component of cor pulmonale. He is noncompliant with his sleep apnea treatment. He certainly needs to quit smoking. He will continue with low flow oxygen. He can taper his steroids as an outpatient. Current Visit: No Specialty Discharge - Follow Up or Referrals
[2017-05-20] MEDS: INSULIN REGULAR 100 UNIT/ML SUBCUT SCH ×4 (09:05→21:56)
[2017-05-20] MEDS: FUROSEMIDE 40 MG/4 ML VIAL IV SCH ×2 (09:07→16:52)
[2017-05-20] MEDS: NICOTINE 21 MG/24 HR PATCH TRANSDERM SCH (09:08)
[2017-05-20] MEDS: THEOPHYLLINE ER (24 HR) 300 MG CAPSULE PO SCH (09:08)
[2017-05-20] MEDS: CARVEDILOL 6.25 MG TABLET PO SCH ×2 (09:09→20:38)
[2017-05-20] MEDS: predniSONE 20 MG TABLET PO SCH (09:09)
[2017-05-20] MEDS: CHLORTHALIDONE 25 MG TABLET PO SCH (09:09)
[2017-05-20] MEDS: TAMSULOSIN 0.4 MG CAPSULE PO SCH ×2 (09:09→20:38)
[2017-05-20] MEDS: ASPIRIN EC 81 MG TABLET PO SCH (09:09)
[2017-05-20] MEDS: PANTOPRAZOLE 40 MG TABLET PO SCH (09:09)
--- NOTE | 2017-05-20 16:41 | Hospitalist Progress Note ---
Hospitalist: Subjective Interval history: Patient was admitted with COPD exacerbation and respiratory failure. He reports some improved breathing today. Exam - Constitutional Vitals: Period Temp Pulse Resp BP Sys/Lew Pulse Ox Last 24 Hr 96.6 F-98.8 F 84-98 18-22 130-152/72-95 89-99 Exam: General: No Acute Distress HEENT: Normocephalic, atraumatic, Extra ocular movements intact Neck: Supple, No JVD Chest: Clear to auscultation B/L CV: S1 + S2 audible without murmur, gallop or rub Abd: soft, NT, Non-distended, BS + Ext: No edema Skin: No purpura, bruising or rash Rheumatologic: No Joint deformities Neurologic: Strength 5/5 all extremities, no gross sensory deficits Results - Labs CBC & BMP: 05/19/17 04:42 05/19/17 04:42 - Impressions Assessment and Plan: Acute on chronic COPD exacerbation Status: Acute Assessment and plan: Patient is breathing better with current treatment continue Current Visit: Yes Acute on chronic hypoxemic and hypercapnic respiratory failure Status: Acute Assessment and plan: This is better with current treatment. Initially he did require BiPAP Current Visit: No Cor pulmonale, chronic Status: Chronic Assessment and plan: This is contributing to his respiratory failure Current Visit: No Diabetes type II Status: Chronic Assessment and plan: Monitor Accu-Cheks while he is on steroids Current Visit: Yes Ess Hypertension Status: Chronic Assessment and plan: Controlled on current meds continue Current Visit: No Chronic nicotine addiction Status: Acute Assessment and plan: He was counseled to quit smoking. Continue nicotine patch Current Visit: No Obstructive sleep apnea Status: Chronic Assessment and plan: Patient has been noncompliant with his CPAP. I did encourage him to use CPAP at home on a regular basis. Current Visit: No Specialty Discharge - Follow Up or Referrals
[2017-05-21] MEDS: ENOXAPARIN 40 MG/0.4 ML SYRINGE SUBCUT SCH (00:09)
[2017-05-21] MEDS: cefTRIAXone 1,000 MG in SODIUM CHLORIDE 0.9% 100 ML IV SCH (00:09)
[2017-05-21] MEDS: ALBUTEROL/IPRATROPIUM 3 ML NEB RESP TX SCH ×4 (00:33→19:19)
[2017-05-21] MEDS: NICOTINE 21 MG/24 HR PATCH TRANSDERM SCH (09:17)
[2017-05-21] MEDS: FUROSEMIDE 40 MG/4 ML VIAL IV SCH ×2 (09:17→15:34)
[2017-05-21] MEDS: predniSONE 20 MG TABLET PO SCH (09:18)
[2017-05-21] MEDS: PANTOPRAZOLE 40 MG TABLET PO SCH (09:18)
[2017-05-21] MEDS: TAMSULOSIN 0.4 MG CAPSULE PO SCH ×2 (09:18→21:18)
[2017-05-21] MEDS: THEOPHYLLINE ER (24 HR) 300 MG CAPSULE PO SCH (09:18)
[2017-05-21] MEDS: ASPIRIN EC 81 MG TABLET PO SCH (09:18)
[2017-05-21] MEDS: CHLORTHALIDONE 25 MG TABLET PO SCH (09:19)
[2017-05-21] MEDS: INSULIN REGULAR 100 UNIT/ML SUBCUT SCH ×4 (09:19→22:19)
[2017-05-21] MEDS: CARVEDILOL 6.25 MG TABLET PO SCH ×2 (09:25→21:18)
--- NOTE | 2017-05-21 16:57 | Hospitalist Progress Note ---
Hospitalist: Subjective Interval history: Patient was admitted with COPD exacerbation and respiratory failure. He reports some improved breathing today. Exam - Constitutional Vitals: Period Temp Pulse Resp BP Sys/Lew Pulse Ox Last 24 Hr 97.3 F-97.8 F 66-93 17-20 115-138/73-84 90-98 Exam: General: No Acute Distress HEENT: Normocephalic, atraumatic, Extra ocular movements intact Neck: Supple, No JVD Chest: Clear to auscultation B/L CV: S1 + S2 audible without murmur, gallop or rub Abd: soft, NT, Non-distended, BS + Ext: No edema Skin: No purpura, bruising or rash Rheumatologic: No Joint deformities Neurologic: Strength 5/5 all extremities, no gross sensory deficits Results - Labs CBC & BMP: 05/19/17 04:42 05/19/17 04:42 - Impressions Assessment and Plan: Acute on chronic COPD exacerbation Status: Acute Assessment and plan: Patient is breathing better with current treatment continue Current Visit: Yes Acute on chronic hypoxemic and hypercapnic respiratory failure Status: Acute Assessment and plan: This is better with current treatment. Initially he did require BiPAP Current Visit: No Cor pulmonale, chronic Status: Chronic Assessment and plan: This is contributing to his respiratory failure Current Visit: No Diabetes type II Status: Chronic Assessment and plan: Monitor Accu-Cheks while he is on steroids Current Visit: Yes Ess Hypertension Status: Chronic Assessment and plan: Controlled on current meds continue Current Visit: No Chronic nicotine addiction Status: Acute Assessment and plan: He was counseled to quit smoking. Continue nicotine patch Current Visit: No Obstructive sleep apnea Status: Chronic Assessment and plan: Patient has been noncompliant with his CPAP. I did encourage him to use CPAP at home on a regular basis. Current Visit: No Specialty Discharge - Follow Up or Referrals
--- NOTE | 2017-05-21 17:06 | Pulmonology Progress Note ---
Pulmonary - PN: Subj Interval history: This is a 62-year-old male whom I am seeing for Dr. Johnson Gama. This man's a smoker and he is overweight. He has COPD and cor pulmonale along with polycythemia and sleep apnea. He was initially admitted with respiratory distress and his improved quite a bit. Patient was seen along with the family member. He says he feels a lot better. He wanted to know when he was going home. Glucoses are under good control. There are no positive cultures Physical exam. Vital signs. See below General. No distress. Psychiatric. Oriented 3 Face symmetrical Neck is short thick with no meningismus Chest. Large airway congestion. Decreased inspiratory excursion because of body habitus Heart sounds are too distant for me to hear Abdomen is massively obese and no organs can be palpated. He has bowel sounds. Extremities. No obvious deep venous thrombophlebitis Neurologic. Cranial nerves are intact. Patient moves all 4 extremities. Sensory exam was not done in gait was not examined The remainder of the review of systems is negative Plan. 1. Continue present regimen. 2. No changes were made today 3. This patient is getting close to discharge from a pulmonary standpoint. Exam (Progress Note) - Constitutional Vitals: Period Temp Pulse Resp BP Sys/Lew Pulse Ox Last 24 Hr 97.3 F-97.8 F 66-93 17-20 115-138/73-84 90-98 Results - Labs CBC & BMP: 05/19/17 04:42 05/19/17 04:42 Specialty Discharge - Follow Up or Referrals
[2017-05-22] MEDS: ENOXAPARIN 40 MG/0.4 ML SYRINGE SUBCUT SCH (00:20)
[2017-05-22] MEDS: cefTRIAXone 1,000 MG in SODIUM CHLORIDE 0.9% 100 ML IV SCH (00:20)
[2017-05-22] MEDS: ALBUTEROL/IPRATROPIUM 3 ML NEB RESP TX SCH ×3 (00:33→14:11)
[2017-05-22] MEDS: INSULIN REGULAR 100 UNIT/ML SUBCUT SCH ×3 (09:53→15:41)
[2017-05-22] MEDS: PANTOPRAZOLE 40 MG TABLET PO SCH (09:54)
[2017-05-22] MEDS: CHLORTHALIDONE 25 MG TABLET PO SCH (09:54)
[2017-05-22] MEDS: THEOPHYLLINE ER (24 HR) 300 MG CAPSULE PO SCH (09:54)
[2017-05-22] MEDS: TAMSULOSIN 0.4 MG CAPSULE PO SCH (09:55)
[2017-05-22] MEDS: predniSONE 20 MG TABLET PO SCH (09:56)
[2017-05-22] MEDS: CARVEDILOL 6.25 MG TABLET PO SCH (09:56)
[2017-05-22] MEDS: FUROSEMIDE 40 MG/4 ML VIAL IV SCH ×2 (09:56→15:41)
[2017-05-22] MEDS: ASPIRIN EC 81 MG TABLET PO SCH (09:56)
[2017-05-22] MEDS: NICOTINE 21 MG/24 HR PATCH TRANSDERM SCH (09:56)
[2017-05-22 11:24] VITALS: BP 111/78
--- NOTE | 2017-05-22 13:46 | Discharge Summary ---
Hospital Course - Hospital Course Hospital Course: 62 year old black male that has a long history of obesity, COPD, chronic respiratory failure on home oxygen ,hypertension, diabetes, and obstructive sleep apnea was admitted with dyspnea due to celiac COPD exacerbation. He also had acute on chronic hypoxemic and hypercapnic respiratory failure that initially required BiPAP treatment . He also has history of obstructive sleep apnea but was noncompliant with his CPAP. He has a component of cor pulmonale along with polycythemia. Patient was also still smoking. He was admitted to the hospitalist service, and was managed with antibiotic steroids bronchodilators. Dr. Raymond from pulmonology service was following as is Dr. Gama. His breathing has significantly improved. She is not requiring any further BiPAP. In the hospital he also received CPAP but he was sleeping. He he has reached maximal hospital benefit and being discharged home in improved and stable condition. Total discharge time 34 minutes. - Time spent with patient Time with patient DS: Greater than 30 minutes Specialty Discharge - Follow Up or Referrals Discharge Plan - Discharge Data Disposition: Disch To Home/Self Care Condition at Discharge: Stable Discharge Diet: advance to your usual diet Activity: resume usual activities as tolerated Hygiene: no restrictions Weight Bearing at Discharge: full weight bearing Driving: no restrictions Contact your physician if you experience:: Shortness of breath - Discharge Medications New methylPREDNISolone TAB [Medrol] 12 mg PO 1800 #30 tablet Nicotine 21 mg/24 Hr Patch [Nicoderm CQ 21 mg/24 hr Patch] 1 patch TRANSDERM DAILY #30 patch Pantoprazole Tab [Protonix Tab] 40 mg PO DAILY #30 tablet Theophylline ER Cap (24 Hr) [Malcom-24] 600 mg PO DAILY #30 capsule Albuterol/Ipratropium Neb [Duoneb] 3 ml RESP TX RT Q6H #60 Doxycycline Hyclate Cap [Vibramycin Cap] 100 mg PO BID #10 capsule Continue Albuterol Sulfate [Proair HFA] 2 puff INH Q4H PRN PRN Reason: Shortness Of Breath/Wheezing Tamsulosin [Flomax] 0.4 mg PO BID #60 capsule Carvedilol [Coreg] 6.25 mg PO BID Aspirin EC Tab 81 mg PO QAM Chlorthalidone 25 mg PO QAM Budesonide Neb [Pulmicort Respules] 0.5 mg RESP TX BID #60 Pantoprazole Tab [Protonix Tab] 40 mg PO QAM #30 Colchicine 0.6 mg PO DAILY PRN #30 PRN Reason: Gout - Follow Up or Referral - Forms/Instructions Instructions: Chronic Obstructive Pulmonary Disease (GEN), Cigarette Smoking and Your Health, [employer] (GEN), How to Stop Smoking, [employer] ( GEN), COPD Exacerbation, [employer] (GEN) Exam - Constitutional Vitals: Period Temp Pulse Resp BP Sys/Lew Pulse Ox Last 24 Hr 96.5 F-97.9 F 77-100 18-22 111-140/66-91 88-98 Exam: General: No Acute Distress HEENT: Normocephalic, atraumatic, Extra ocular movements intact Neck: Supple, No JVD Chest: Clear to auscultation B/L CV: S1 + S2 audible without murmur, gallop or rub Abd: soft, NT, Non-distended, BS + Ext: No edema Skin: No purpura, bruising or rash Rheumatologic: No Joint deformities Neurologic: Strength 5/5 all extremities, no gross sensory deficits Discharge Results Labs on day of discharge: Labs from last 24 hours 05/22/17 05/21/17 05/21/17 10:49 21:07 16:13 POC Glucose 165 H 181 H 208 H DS: Provider Date of admission: 05/18/17 23:52 Primary care physician: ANTOINETTE ALVARADO NP Attending physician on admission: Jose Cortez MD Consults: 05/18/17 23:52 Consult to Pulmonary Rehabilitation [CONS] Routine Reason for Pulmonary Rehabilitation: COPD 05/19/17 09:10 Consult to Physician [CONS] Routine Comment: copd Consulting Provider: Alvarez Gama Person Notified: Brant Date Notified: 05/19/17 Time Notified: 10:03 Discharging clinician: Macho Marks MD
[2017-05-22] MEDS ORDERED: methylPREDNISolone 4 MG TABLET PO SCH ×2 (14:00→18:00)
--- NOTE | 2017-05-22 14:05 | Pulmonology Progress Note ---
Pulmonary - PN: Subj Interval history: This is a 62-year-old male whom I am seeing for Dr. Johnson Gama. This man's a smoker and he is overweight. He has COPD and cor pulmonale along with polycythemia and sleep apnea. He was initially admitted with respiratory distress and his improved quite a bit. Patient was seen along with the family member. He says he feels a lot better. He wanted to know when he was going home. Glucoses are under good control. There are no positive cultures 05/22/2017. This patient was seen along with his family. He continues to improve. He said he would like to go home and I agree with this I have talked to his hospitalist and the hospitalist was also agreeable. Follow-up arrangements will be made for the patient. Glucoses are under good control. Labs been reviewed. Medicines been reviewed. I will sign off. Reconsult whenever needed. Physical exam. Vital signs. See below General. No distress. Psychiatric. Oriented 3 Face symmetrical Neck is short thick with no meningismus Chest. Large airway congestion. Decreased inspiratory excursion because of body habitus Heart sounds are too distant for me to hear Abdomen is massively obese and no organs can be palpated. He has bowel sounds. Extremities. No obvious deep venous thrombophlebitis Neurologic. Cranial nerves are intact. Patient moves all 4 extremities. Sensory exam was not done in gait was not examined The remainder of the review of systems is negative Plan. 05/21/2017. 1. Continue present regimen. 2. No changes were made today 3. This patient is getting close to discharge from a pulmonary standpoint. 05/22/2017. 1. Agree with discharge. 2. We will sign off. Reconsult when needed. 3. Referred back to the patient's primary care physician Exam (Progress Note) - Constitutional Vitals: Period Temp Pulse Resp BP Sys/Lew Pulse Ox Last 24 Hr 96.5 F-97.9 F 77-100 18-22 111-140/66-91 88-98 Results - Labs CBC & BMP: 05/19/17 04:42 05/19/17 04:42 Specialty Discharge - Follow Up or Referrals
[2017-05-22] MEDS ORDERED: DOXYCYCLINE HYCLATE 100 MG CAPSULE PO SCH (21:00)
[2017-05-23] MEDS ORDERED: FUROSEMIDE 40 MG TABLET PO SCH (09:00)
== END 2017-05-22 15:50 | disposition home or self-care (01) | DRG 189 ==
LOC: N.ED 18:51 → N.EDINP 23:49 → SUATTDRO 23:49 → N.5E 05-19 00:47
PROVIDERS: ADMIT Internal Medicine; ATTEND Hospitalist

== ENCOUNTER 2017-11-23 17:55 | Inpatient (IN) ==
[2017-11-23] MEDS ORDERED: FUROSEMIDE 100 MG/10 ML VIAL IV STA (19:37)
[2017-11-23 20:00] LABS: Basophils # 0.1 10*3/uL (0.0-0.2); Basophils % 0.7 % (0.0-0.8); Eosinophils # 0.1 10*3/uL (0.0-0.87); Eosinophils % 1.3 % (0.00-10.9); Hematocrit 51.1 VOL% (42.0-52.0); Hemoglobin 15.8 GM/DL (14.0-18.0); Immature Granulocytes % 0.3 %; Immature Granulocytes Absolute 0.02 #; Lymphocytes # 0.9 10*3/uL (1.4-4.0); Lymphocytes % 12.5 % (21.2-54.2); Mean Corpuscular HGB Conc 30.9 GM/DL (32-36); Mean Corpuscular Hemoglobin 27 PG (27-34); Mean Corpuscular Volume 85.7 FL (87-102); Mean Platelet Volume 10.7 FL (9.6-12.0); Monocytes # 0.7 10*3/uL (0.11-0.8); Monocytes % 9.6 % (1.7-12.7); Neutrophils # 5.4 10*3/uL (1.4-7.4); Neutrophils % 75.6 % (38.7-73.9); Platelet Count 224 T/CUMM (130-400); Red Blood Count 5.96 MC/CUMM (3.8-5.5); Red Cell Distribution Width 17.9 % (9.3-17.3); White Blood Count 7.2 T/CUMM (4-12)
[2017-11-23] MEDS ORDERED: FUROSEMIDE 100 MG/10 ML VIAL ONE (20:28)
[2017-11-23 20:32] LABS: Albumin 2.7 G/DL (3.4-5.0); Bilirubin,Total 1.9 MG/DL (0.2-1.0); Calcium 8.9 MG/DL (8.5-10.1); Osmolality,Calculated 279.5 MOS/KG (273-304); Potassium 3.5 MMOL/L (3.5-5.1)
[2017-11-23] MEDS ORDERED: MORPHINE 2 MG/1 ML SYRINGE ONE ×2 (21:53)
[2017-11-23] MEDS ORDERED: MORPHINE 2 MG/1 ML SYRINGE IV STA (21:57)
[2017-11-23] MEDS ORDERED: GLUCAGON 1 MG VIAL IM PRN (22:07)
[2017-11-23] MEDS ORDERED: ONDANSETRON 4 MG/2 ML VIAL IV PRN (22:07)
[2017-11-23] MEDS ORDERED: MAGNESIUM SULF RIDER 2 GM in PREMIX 1 EACH IV PRN (22:07)
[2017-11-23] MEDS ORDERED: MAGNESIUM SULF RIDER 4 GM in PREMIX 1 EACH IV PRN (22:07)
[2017-11-23] MEDS ORDERED: DEXTROSE 50% 25 GM/50 ML VIAL IV PRN (22:07)
[2017-11-23] MEDS ORDERED: ACETAMINOPHEN 325 MG TABLET PO PRN (22:07)
[2017-11-23] MEDS: ENOXAPARIN 40 MG/0.4 ML SYRINGE SUBCUT SCH (23:35)
[2017-11-24] MEDS: ALBUTEROL/IPRATROPIUM 3 ML NEB RESP TX SCH ×4 (00:13→20:20)
[2017-11-24] MEDS: TAMSULOSIN 0.4 MG CAPSULE PO SCH ×3 (00:43→21:15)
[2017-11-24] MEDS: MORPHINE 2 MG/1 ML SYRINGE IV PRN ×3 (02:07→21:15)
[2017-11-24 06:14] LABS: Basophils % 0.6 % (0.0-0.8); Eosinophils # 0.1 10*3/uL (0.0-0.87); Eosinophils % 1.3 % (0.00-10.9); Hematocrit 49.5 VOL% (42.0-52.0); Immature Granulocytes % 0.3 %; Immature Granulocytes Absolute 0.02 #; Lymphocytes # 0.9 10*3/uL (1.4-4.0); Lymphocytes % 13.5 % (21.2-54.2); Mean Corpuscular HGB Conc 32.3 GM/DL (32-36); Mean Corpuscular Hemoglobin 27 PG (27-34); Mean Corpuscular Volume 82.9 FL (87-102); Mean Platelet Volume 10.2 FL (9.6-12.0); Monocytes # 0.7 10*3/uL (0.11-0.8); Neutrophils # 4.7 10*3/uL (1.4-7.4); Neutrophils % 73.3 % (38.7-73.9); Platelet Count 210 T/CUMM (130-400); Red Blood Count 5.97 MC/CUMM (3.8-5.5); Red Cell Distribution Width 17.9 % (9.3-17.3); White Blood Count 6.4 T/CUMM (4-12)
[2017-11-24 06:46] LABS: Alanine Aminotransferase < 9 U/L (16-61); Albumin 2.5 G/DL (3.4-5.0); Alkaline Phosphatase 134 U/L (45-117); Aspartate Amino Transferase 10 U/L (0-37); Blood Urea Nitrogen 21 MG/DL (7-18); Calcium 8.7 MG/DL (8.5-10.1); Glucose 97 MG/DL (74-106); Osmolality,Calculated 281.4 MOS/KG (273-304); Potassium 3.3 MMOL/L (3.5-5.1); Sodium 140 MMOL/L (136-145); Total Protein 6.5 G/DL (6.4-8.3)
[2017-11-24] MEDS: ARFORMOTEROL 15 MCG/2 ML NEB RESP TX SCH ×2 (06:52→20:20)
[2017-11-24] MEDS: INSULIN REGULAR 100 UNIT/ML SUBCUT SCH ×4 (08:07→21:16)
[2017-11-24] MEDS ORDERED: CARVEDILOL 6.25 MG TABLET PO SCH (09:00)
[2017-11-24] MEDS: POTASSIUM CHLORIDE 20 MEQ TABLET PO PRN ×3 (09:06→14:24)
[2017-11-24] MEDS: COLCHICINE 0.6 MG TABLET PO SCH (09:06)
[2017-11-24] MEDS: FUROSEMIDE 40 MG/4 ML VIAL IV SCH ×2 (09:06→16:03)
[2017-11-24] MEDS: THEOPHYLLINE ER (24 HR) 300 MG CAPSULE PO SCH (09:06)
[2017-11-24] MEDS: traMADol 50 MG TABLET PO PRN ×2 (09:07→14:24)
[2017-11-24] MEDS: FLUTICASONE 50 MCG NASAL SPRAY 16 GM BOTTLE BOTH NARES SCH (09:08)
[2017-11-24] MEDS: ALLOPURINOL 100 MG TABLET PO SCH (09:08)
[2017-11-24] MEDS: ASPIRIN EC 81 MG TABLET PO SCH (09:08)
[2017-11-24] MEDS: PANTOPRAZOLE 40 MG TABLET PO SCH (09:08)
[2017-11-24] MEDS: SPIRONOLACTONE 25 MG TABLET PO SCH (16:04)
[2017-11-24] MEDS: CARVEDILOL 12.5 MG TABLET PO SCH (21:15)
[2017-11-24] MEDS: ENOXAPARIN 40 MG/0.4 ML SYRINGE SUBCUT SCH (21:15)
[2017-11-25] MEDS: ALBUTEROL/IPRATROPIUM 3 ML NEB RESP TX SCH ×4 (01:42→19:14)
[2017-11-25 06:31] LABS: Basophils % 0.3 % (0.0-0.8); Eosinophils # 0.1 10*3/uL (0.0-0.87); Eosinophils % 0.8 % (0.00-10.9); Immature Granulocytes % 0.5 %; Immature Granulocytes Absolute 0.04 #; Lymphocytes % 11.6 % (21.2-54.2); Mean Corpuscular Hemoglobin 27 PG (27-34); Mean Corpuscular Volume 83.8 FL (87-102); Mean Platelet Volume 10.7 FL (9.6-12.0); Monocytes # 1.2 10*3/uL (0.11-0.8); Monocytes % 14.2 % (1.7-12.7); Neutrophils # 6.3 10*3/uL (1.4-7.4); Neutrophils % 72.6 % (38.7-73.9); Platelet Count 244 T/CUMM (130-400); Red Blood Count 5.97 MC/CUMM (3.8-5.5); Red Cell Distribution Width 18.1 % (9.3-17.3)
[2017-11-25 06:33] LABS: White Blood Count 8.7 T/CUMM (4-12)
[2017-11-25] MEDS: INSULIN REGULAR 100 UNIT/ML SUBCUT SCH ×4 (07:35→22:00)
[2017-11-25 07:44] LABS: Calcium 9.4 MG/DL (8.5-10.1); Osmolality,Calculated 276.8 MOS/KG (273-304); Potassium 3.7 MMOL/L (3.5-5.1)
[2017-11-25] MEDS: ARFORMOTEROL 15 MCG/2 ML NEB RESP TX SCH ×2 (07:46→19:14)
[2017-11-25 07:47] LABS: Risk Ratio 2.74; VLDL CHOLESTEROL 15.2 MG/DL
[2017-11-25] MEDS: MORPHINE 2 MG/1 ML SYRINGE IV PRN (09:11)
[2017-11-25] MEDS: FUROSEMIDE 40 MG/4 ML VIAL IV SCH ×2 (09:11→16:32)
[2017-11-25] MEDS: TAMSULOSIN 0.4 MG CAPSULE PO SCH ×2 (09:12→20:00)
[2017-11-25] MEDS: CARVEDILOL 12.5 MG TABLET PO SCH ×2 (09:12→20:00)
[2017-11-25] MEDS: THEOPHYLLINE ER (24 HR) 300 MG CAPSULE PO SCH (09:12)
[2017-11-25] MEDS: SPIRONOLACTONE 25 MG TABLET PO SCH (09:12)
[2017-11-25] MEDS: PANTOPRAZOLE 40 MG TABLET PO SCH (09:12)
[2017-11-25] MEDS: COLCHICINE 0.6 MG TABLET PO SCH (09:12)
[2017-11-25] MEDS: ASPIRIN EC 81 MG TABLET PO SCH (09:12)
[2017-11-25] MEDS: FLUTICASONE 50 MCG NASAL SPRAY 16 GM BOTTLE BOTH NARES SCH (09:13)
[2017-11-25] MEDS: ALLOPURINOL 100 MG TABLET PO SCH (09:13)
[2017-11-25] MEDS: ENOXAPARIN 40 MG/0.4 ML SYRINGE SUBCUT SCH (20:00)
[2017-11-25] MEDS: traMADol 50 MG TABLET PO PRN (20:04)
[2017-11-26] MEDS: ALBUTEROL/IPRATROPIUM 3 ML NEB RESP TX SCH ×3 (00:36→12:53)
[2017-11-26] MEDS: traMADol 50 MG TABLET PO PRN ×2 (03:50→08:50)
[2017-11-26 06:25] LABS: Basophils % 0.4 % (0.0-0.8); Eosinophils # 0.1 10*3/uL (0.0-0.87); Eosinophils % 1.3 % (0.00-10.9); Hematocrit 48.6 VOL% (42.0-52.0); Hemoglobin 15.3 GM/DL (14.0-18.0); Immature Granulocytes % 0.3 %; Immature Granulocytes Absolute 0.02 #; Lymphocytes % 13.6 % (21.2-54.2); Mean Corpuscular HGB Conc 31.5 GM/DL (32-36); Mean Corpuscular Hemoglobin 27 PG (27-34); Mean Corpuscular Volume 85.1 FL (87-102); Mean Platelet Volume 10.4 FL (9.6-12.0); Monocytes # 0.7 10*3/uL (0.11-0.8); Monocytes % 10.3 % (1.7-12.7); Neutrophils # 5.2 10*3/uL (1.4-7.4); Neutrophils % 74.1 % (38.7-73.9); Platelet Count 239 T/CUMM (130-400); Red Blood Count 5.71 MC/CUMM (3.8-5.5); Red Cell Distribution Width 16.9 % (9.3-17.3); White Blood Count 7.1 T/CUMM (4-12)
[2017-11-26 06:53] LABS: Osmolality,Calculated 279.7 MOS/KG (273-304); Potassium 3.6 MMOL/L (3.5-5.1)
[2017-11-26] MEDS: ARFORMOTEROL 15 MCG/2 ML NEB RESP TX SCH (07:24)
[2017-11-26] MEDS: INSULIN REGULAR 100 UNIT/ML SUBCUT SCH ×2 (08:33→12:24)
[2017-11-26] MEDS: ALLOPURINOL 100 MG TABLET PO SCH (08:34)
[2017-11-26] MEDS: SPIRONOLACTONE 25 MG TABLET PO SCH (08:48)
[2017-11-26] MEDS: THEOPHYLLINE ER (24 HR) 300 MG CAPSULE PO SCH (08:48)
[2017-11-26] MEDS: TAMSULOSIN 0.4 MG CAPSULE PO SCH (08:48)
[2017-11-26] MEDS: CARVEDILOL 12.5 MG TABLET PO SCH (08:48)
[2017-11-26] MEDS: FUROSEMIDE 40 MG/4 ML VIAL IV SCH (08:48)
[2017-11-26] MEDS: COLCHICINE 0.6 MG TABLET PO SCH (08:48)
[2017-11-26] MEDS: PANTOPRAZOLE 40 MG TABLET PO SCH (08:48)
[2017-11-26] MEDS: ASPIRIN EC 81 MG TABLET PO SCH (08:48)
[2017-11-26] MEDS: FLUTICASONE 50 MCG NASAL SPRAY 16 GM BOTTLE BOTH NARES SCH (08:51)
[2017-11-26 12:17] VITALS: BP 105/76
== END 2017-11-26 15:00 | disposition home health service (06) | DRG 292 ==
LOC: N.ED 17:55 → N.EDINP 22:07 → SUATTDRO 22:07 → N.5E 23:01
PROVIDERS: ADMIT Internal Medicine; ATTEND Internal Medicine

== ENCOUNTER 2018-08-03 12:37 | Inpatient (IN) ==
[2018-08-03] MEDS ORDERED: ALBUTEROL/IPRATROPIUM 3 ML NEB RESP TX STA (13:04)
[2018-08-03] MEDS ORDERED: FUROSEMIDE 100 MG/10 ML VIAL IV STA (13:04)
[2018-08-03 13:38] LABS: Basophils % 0.5 % (0.0-0.8); Eosinophils # 0.2 10*3/uL (0.0-0.87); Hematocrit 46.3 VOL% (42.0-52.0); Hemoglobin 15.1 GM/DL (14.0-18.0); Immature Granulocytes % 0.4 %; Immature Granulocytes Absolute 0.03 #; Lymphocytes # 1.3 10*3/uL (1.4-4.0); Lymphocytes % 17.1 % (21.2-54.2); Mean Corpuscular HGB Conc 32.6 GM/DL (32-36); Mean Corpuscular Hemoglobin 29 PG (27-34); Mean Corpuscular Volume 90.3 FL (87-102); Mean Platelet Volume 10.8 FL (9.6-12.0); Monocytes # 0.8 10*3/uL (0.11-0.8); Monocytes % 10.2 % (1.7-12.7); NRBC # 0.03 10*3/uL; Neutrophils # 5.1 10*3/uL (1.4-7.4); Neutrophils % 69.8 % (38.7-73.9); Platelet Count 173 T/CUMM (130-400); Red Blood Count 5.13 MC/CUMM (3.8-5.5); Red Cell Distribution Width 14.7 % (9.3-17.3); White Blood Count 7.3 T/CUMM (4-12)
[2018-08-03] MEDS ORDERED: FUROSEMIDE 40 MG/4 ML VIAL ONE (13:43)
[2018-08-03] MEDS ORDERED: FUROSEMIDE 20 MG/2 ML VIAL ONE (13:44)
[2018-08-03] MEDS ORDERED: ZALEPLON 5 MG CAPSULE PO PRN (14:57)
[2018-08-03] MEDS ORDERED: DEXTROSE 50% 25 GM/50 ML VIAL IV PRN (14:57)
[2018-08-03] MEDS ORDERED: ACETAMINOPHEN 325 MG TABLET PO PRN (14:57)
[2018-08-03] MEDS ORDERED: guaiFENesin/DM ER 600-30 MG TABLET PO PRN (14:57)
[2018-08-03] MEDS ORDERED: GLUCAGON 1 MG VIAL IM PRN (14:57)
[2018-08-03] MEDS ORDERED: ONDANSETRON 4 MG/2 ML VIAL IV PRN (14:57)
[2018-08-03 15:04] LABS: Albumin 3.4 G/DL (3.4-5.0); Calcium 9.1 MG/DL (8.5-10.1); Osmolality,Calculated 283.1 MOS/KG (273-304); Potassium 2.9 MMOL/L (3.5-5.1); Total Protein 7.6 G/DL (6.4-8.3)
[2018-08-03] MEDS ORDERED: POTASSIUM CHLORIDE RIDER 10 MEQ in PREMIX 1 EACH IV PRN (15:38)
[2018-08-03] MEDS ORDERED: MAGNESIUM SULF RIDER 2 GM in PREMIX 1 EACH IV PRN (15:38)
[2018-08-03] MEDS ORDERED: MAGNESIUM SULF RIDER 4 GM in PREMIX 1 EACH IV PRN (15:38)
[2018-08-03] MEDS ORDERED: COLCHICINE 0.6 MG TABLET PO STA (16:28)
[2018-08-03] MEDS ORDERED: INFLUENZA VIRUS VACCINE 0.5 ML SYRINGE IM ONE (17:03)
[2018-08-03] MEDS: metFORMIN 500 MG TABLET PO SCH (17:43)
[2018-08-03] MEDS: FUROSEMIDE 40 MG/4 ML VIAL IV SCH (17:44)
[2018-08-03] MEDS: INSULIN REGULAR 100 UNIT/ML SUBCUT SCH ×2 (17:47→22:23)
[2018-08-03] MEDS: ALBUTEROL/IPRATROPIUM 3 ML NEB RESP TX SCH (19:23)
[2018-08-03] MEDS: DOCUSATE SODIUM 100 MG CAPSULE PO SCH (22:22)
[2018-08-03] MEDS: CARVEDILOL 6.25 MG TABLET PO SCH (22:23)
[2018-08-03] MEDS: ALLOPURINOL 100 MG TABLET PO SCH (22:23)
[2018-08-03] MEDS: TAMSULOSIN 0.4 MG CAPSULE PO SCH (22:23)
[2018-08-03] MEDS: COLCHICINE 0.6 MG TABLET PO SCH (22:23)
[2018-08-04] MEDS: ALBUTEROL/IPRATROPIUM 3 ML NEB RESP TX SCH ×4 (00:46→19:15)
[2018-08-04 03:45] LABS: Basophils % 0.5 % (0.0-0.8); Eosinophils # 0.2 10*3/uL (0.0-0.87); Eosinophils % 2.8 % (0.00-10.9); Hematocrit 44.4 VOL% (42.0-52.0); Hemoglobin 14.1 GM/DL (14.0-18.0); Immature Granulocytes % 0.2 %; Immature Granulocytes Absolute 0.01 #; Lymphocytes # 1.3 10*3/uL (1.4-4.0); Lymphocytes % 20.9 % (21.2-54.2); Mean Corpuscular HGB Conc 31.8 GM/DL (32-36); Mean Corpuscular Hemoglobin 29 PG (27-34); Mean Corpuscular Volume 91.4 FL (87-102); Mean Platelet Volume 10.8 FL (9.6-12.0); Monocytes # 0.6 10*3/uL (0.11-0.8); Monocytes % 9.8 % (1.7-12.7); NRBC # 0.02 10*3/uL; Neutrophils % 65.8 % (38.7-73.9); Platelet Count 167 T/CUMM (130-400); Red Blood Count 4.86 MC/CUMM (3.8-5.5); Red Cell Distribution Width 14.7 % (9.3-17.3); White Blood Count 6.1 T/CUMM (4-12)
[2018-08-04 04:03] LABS: Bilirubin,Total 1.1 MG/DL (0.2-1.0); Calcium 8.9 MG/DL (8.5-10.1); Osmolality,Calculated 285.8 MOS/KG (273-304); Potassium 2.9 MMOL/L (3.5-5.1)
[2018-08-04] MEDS ORDERED: ALLOPURINOL 100 MG TABLET PO SCH (09:00)
[2018-08-04] MEDS ORDERED: LOSARTAN 25 MG TABLET PO SCH (09:00)
[2018-08-04] MEDS ORDERED: COLCHICINE 0.6 MG PO SCH (09:00)
[2018-08-04] MEDS: FUROSEMIDE 40 MG/4 ML VIAL IV SCH ×2 (09:40→17:16)
[2018-08-04] MEDS: INSULIN REGULAR 100 UNIT/ML SUBCUT SCH ×4 (09:40→21:37)
[2018-08-04] MEDS: DOCUSATE SODIUM 100 MG CAPSULE PO SCH ×2 (09:42→21:35)
[2018-08-04] MEDS: PANTOPRAZOLE 40 MG TABLET PO SCH (09:43)
[2018-08-04] MEDS: POTASSIUM CHLORIDE 20 MEQ TABLET PO SCH ×2 (09:43→21:34)
[2018-08-04] MEDS: THEOPHYLLINE ER (24 HR) 300 MG CAPSULE PO SCH (09:43)
[2018-08-04] MEDS: ALLOPURINOL 100 MG TABLET PO SCH ×3 (09:43→21:35)
[2018-08-04] MEDS: ATORVASTATIN 40 MG TABLET PO SCH (09:43)
[2018-08-04] MEDS: ASPIRIN EC 81 MG TABLET PO SCH (09:43)
[2018-08-04] MEDS: CARVEDILOL 6.25 MG TABLET PO SCH ×2 (09:44→21:35)
[2018-08-04] MEDS: FLUTICASONE 50 MCG NASAL SPRAY 16 GM BOTTLE BOTH NARES SCH (09:45)
[2018-08-04] MEDS: COLCHICINE 0.6 MG TABLET PO SCH ×2 (09:45→21:34)
[2018-08-04] MEDS: TAMSULOSIN 0.4 MG CAPSULE PO SCH ×2 (09:45→21:35)
[2018-08-04] MEDS: SPIRONOLACTONE 25 MG TABLET PO SCH (14:14)
[2018-08-04] MEDS: POTASSIUM CHLORIDE 20 MEQ TABLET PO PRN ×2 (14:14→17:16)
[2018-08-04] MEDS: metFORMIN 500 MG TABLET PO SCH (17:17)
[2018-08-04] MEDS: LOSARTAN 25 MG TABLET PO SCH (21:35)
[2018-08-05] MEDS: ALBUTEROL/IPRATROPIUM 3 ML NEB RESP TX SCH ×2 (00:30→08:17)
[2018-08-05 04:25] LABS: Basophils % 0.5 % (0.0-0.8); Eosinophils # 0.3 10*3/uL (0.0-0.87); Eosinophils % 3.9 % (0.00-10.9); Hematocrit 43.8 VOL% (42.0-52.0); Immature Granulocytes % 0.3 %; Immature Granulocytes Absolute 0.02 #; Lymphocytes # 1.5 10*3/uL (1.4-4.0); Lymphocytes % 22.9 % (21.2-54.2); Mean Corpuscular Hemoglobin 29 PG (27-34); Mean Platelet Volume 11.1 FL (9.6-12.0); Monocytes # 0.7 10*3/uL (0.11-0.8); Monocytes % 10.2 % (1.7-12.7); Neutrophils % 62.2 % (38.7-73.9); Platelet Count 182 T/CUMM (130-400); Red Blood Count 4.76 MC/CUMM (3.8-5.5); Red Cell Distribution Width 14.8 % (9.3-17.3); White Blood Count 6.5 T/CUMM (4-12)
[2018-08-05 04:52] LABS: Albumin 2.9 G/DL (3.4-5.0); Bilirubin,Total 0.8 MG/DL (0.2-1.0); Calcium 8.9 MG/DL (8.5-10.1); Potassium 3.7 MMOL/L (3.5-5.1); Total Protein 6.9 G/DL (6.4-8.3)
[2018-08-05 07:05] LABS: Eosinophils 2 % (0-10); Hypochromasia 1+; Lymphocytes 25 % (20-55); Platelet Estimate Adequate; Segmented Neutrophils 63 % (50-85); Total Cells Counted 100
[2018-08-05] MEDS: INSULIN REGULAR 100 UNIT/ML SUBCUT SCH ×2 (07:48→11:34)
[2018-08-05] MEDS: FLUTICASONE 50 MCG NASAL SPRAY 16 GM BOTTLE BOTH NARES SCH (09:50)
[2018-08-05] MEDS: COLCHICINE 0.6 MG TABLET PO SCH (09:50)
[2018-08-05] MEDS: ATORVASTATIN 40 MG TABLET PO SCH (09:50)
[2018-08-05] MEDS: FUROSEMIDE 40 MG/4 ML VIAL IV SCH (09:50)
[2018-08-05] MEDS: POTASSIUM CHLORIDE 20 MEQ TABLET PO SCH (09:50)
[2018-08-05] MEDS: PANTOPRAZOLE 40 MG TABLET PO SCH (09:50)
[2018-08-05] MEDS: THEOPHYLLINE ER (24 HR) 300 MG CAPSULE PO SCH (09:50)
[2018-08-05] MEDS: TAMSULOSIN 0.4 MG CAPSULE PO SCH (09:50)
[2018-08-05] MEDS: LOSARTAN 25 MG TABLET PO SCH (09:50)
[2018-08-05] MEDS: SPIRONOLACTONE 25 MG TABLET PO SCH (09:50)
[2018-08-05] MEDS: CARVEDILOL 6.25 MG TABLET PO SCH (09:50)
[2018-08-05] MEDS: ASPIRIN EC 81 MG TABLET PO SCH (09:50)
[2018-08-05] MEDS: DOCUSATE SODIUM 100 MG CAPSULE PO SCH (09:50)
[2018-08-05] MEDS: ALLOPURINOL 100 MG TABLET PO SCH (09:54)
[2018-08-05 12:19] VITALS: BP 114/70
== END 2018-08-05 13:00 | disposition home or self-care (01) | DRG 292 ==
LOC: N.ED 12:37 → N.EDINP 14:58 → N.2W 16:48 → N.TELEN 17:55
PROVIDERS: ADMIT Emergency Medicine; ATTEND Emergency Medicine

== ENCOUNTER 2018-09-17 09:36 | Inpatient (IN) ==
[2018-09-17] MEDS ORDERED: PIPERACILLIN/TAZOBACTAM 3,375 MG in SODIUM CHLORIDE 0.9% 100 ML IV STA (10:10)
[2018-09-17] MEDS ORDERED: ALBUTEROL/IPRATROPIUM 3 ML NEB RESP TX STA (10:10)
[2018-09-17] MEDS ORDERED: methylPREDNISolone SOD SUC 125 MG/2 ML VIAL IV STA (10:10)
[2018-09-17 10:32] LABS: Basophils % 0.8 % (0.0-0.8); Eosinophils # 0.1 10*3/uL (0.0-0.87); Eosinophils % 3.4 % (0.00-10.9); Hematocrit 49.3 VOL% (42.0-52.0); Hemoglobin 15.8 GM/DL (14.0-18.0); Immature Granulocytes % 0.3 %; Immature Granulocytes Absolute 0.01 #; Lymphocytes # 0.8 10*3/uL (1.4-4.0); Lymphocytes % 21.5 % (21.2-54.2); Mean Corpuscular Hemoglobin 29 PG (27-34); Mean Corpuscular Volume 91.5 FL (87-102); Mean Platelet Volume 10.5 FL (9.6-12.0); Monocytes # 0.4 10*3/uL (0.11-0.8); Monocytes % 10.5 % (1.7-12.7); Neutrophils # 2.4 10*3/uL (1.4-7.4); Neutrophils % 63.5 % (38.7-73.9); Platelet Count 157 T/CUMM (130-400); Red Blood Count 5.39 MC/CUMM (3.8-5.5); Red Cell Distribution Width 14.4 % (9.3-17.3); White Blood Count 3.8 T/CUMM (4-12)
[2018-09-17] MEDS ORDERED: PIPERACILLIN/TAZOBACTAM 3,375 MG VIAL IV ONE (10:35)
[2018-09-17] MEDS ORDERED: SODIUM CHLORIDE 0.9% 100 ML IV ONE (10:36)
[2018-09-17 10:58] LABS: Albumin 3.4 G/DL (3.4-5.0); Bilirubin,Total 0.9 MG/DL (0.2-1.0); Calcium 9.3 MG/DL (8.5-10.1); Osmolality,Calculated 288.8 MOS/KG (273-304); Potassium 3.8 MMOL/L (3.5-5.1); Total Protein 7.5 G/DL (6.4-8.3)
[2018-09-17 11:00] LABS: ABG Base Excess 0.8 MMOL/L (-2.5-2.5); ABG HCO3 24.7 MMOL/L (20-26); ABG PCO2 37.8 MM HG (35-48); ABG PH 7.427 (7.35-7.45); ABG PO2 46.4 MM HG (80-95); ABG TCO2 20.9 MMOL/L (23-27)
[2018-09-17 11:43] LABS: Apearance,Urine CLEAR (Clear); Bacteria,Urine Occasional /HPF (Few); Bilirubin,Urine Negative (Negative); Blood, Urine Moderate mg/dL (Negative); Glucose,Urine (UA) Negative (Negative); Ketones,Urine Negative (Negative); Mucus,Urine Occasional /LPF (Occasional); Nitrite,Urine Negative (Negative); Protein,Urine 100 MG/DL; RBC,Urine 10 /HPF (0-4); Squamous Epithelial Cell,Urine Occasional /HPF (0-10); Urine Color Yellow (Yellow); Urine Specific Gravity 1.017 (1.001-1.035); WBC,Urine <1 /HPF (0-6)
[2018-09-17] MEDS ORDERED: ACETAMINOPHEN 325 MG TABLET PO PRN (13:48)
[2018-09-17] MEDS ORDERED: DEXTROSE 50% 25 GM/50 ML VIAL IV PRN (13:48)
[2018-09-17] MEDS ORDERED: GLUCAGON 1 MG VIAL IM PRN (13:48)
[2018-09-17] MEDS ORDERED: ONDANSETRON 4 MG/2 ML VIAL IV PRN (13:48)
[2018-09-17] MEDS ORDERED: ALBUTEROL/IPRATROPIUM 3 ML NEB RESP TX PRN (15:19)
[2018-09-17] MEDS ORDERED: ALBUTEROL 2.5 MG/3 ML NEB RESP TX PRN (15:19)
[2018-09-17] MEDS: INSULIN REGULAR 100 UNIT/ML SUBCUT SCH ×2 (16:16→21:21)
[2018-09-17] MEDS: FUROSEMIDE 40 MG TABLET PO SCH (17:50)
[2018-09-17] MEDS: LEVOFLOXACIN INJ 500 MG in PREMIX 1 EACH IV SCH (17:58)
[2018-09-17] MEDS: methylPREDNISolone SOD SUC 40 MG/1 ML VIAL IV SCH (18:10)
[2018-09-17] MEDS ORDERED: CARVEDILOL 6.25 MG TABLET PO SCH (21:00)
[2018-09-17] MEDS: TAMSULOSIN 0.4 MG CAPSULE PO SCH (21:21)
[2018-09-18] MEDS: methylPREDNISolone SOD SUC 40 MG/1 ML VIAL IV SCH ×3 (04:54→17:02)
[2018-09-18 05:45] LABS: Basophils % 0.1 % (0.0-0.8); Hematocrit 46.8 VOL% (42.0-52.0); Hemoglobin 14.7 GM/DL (14.0-18.0); Immature Granulocytes % 0.3 %; Immature Granulocytes Absolute 0.02 #; Lymphocytes # 0.8 10*3/uL (1.4-4.0); Lymphocytes % 11.2 % (21.2-54.2); Mean Corpuscular HGB Conc 31.4 GM/DL (32-36); Mean Corpuscular Hemoglobin 29 PG (27-34); Mean Corpuscular Volume 91.2 FL (87-102); Mean Platelet Volume 10.9 FL (9.6-12.0); Monocytes # 0.6 10*3/uL (0.11-0.8); Monocytes % 8.3 % (1.7-12.7); Neutrophils # 5.9 10*3/uL (1.4-7.4); Neutrophils % 80.1 % (38.7-73.9); Platelet Count 168 T/CUMM (130-400); Red Blood Count 5.13 MC/CUMM (3.8-5.5); Red Cell Distribution Width 14.2 % (9.3-17.3); White Blood Count 7.3 T/CUMM (4-12)
[2018-09-18 06:14] LABS: Calcium 9.3 MG/DL (8.5-10.1); Osmolality,Calculated 290.8 MOS/KG (273-304); Potassium 3.7 MMOL/L (3.5-5.1); Risk Ratio 3.16; Thyroid Stimulating Hormone 2.91 uIU/ml (0.358-3.74); VLDL CHOLESTEROL 15.8 MG/DL
[2018-09-18] MEDS: INSULIN REGULAR 100 UNIT/ML SUBCUT SCH ×4 (08:22→21:38)
[2018-09-18] MEDS: COLCHICINE 0.6 MG TABLET PO SCH (09:58)
[2018-09-18] MEDS: POTASSIUM CHLORIDE 20 MEQ TABLET PO SCH (09:58)
[2018-09-18] MEDS: PANTOPRAZOLE 40 MG TABLET PO SCH (09:59)
[2018-09-18] MEDS: CARVEDILOL 3.125 MG TABLET PO SCH ×2 (09:59→21:38)
[2018-09-18] MEDS: LOSARTAN 25 MG TABLET PO SCH (09:59)
[2018-09-18] MEDS: TAMSULOSIN 0.4 MG CAPSULE PO SCH ×2 (09:59→21:39)
[2018-09-18] MEDS: THEOPHYLLINE ER (24 HR) 300 MG CAPSULE PO SCH (09:59)
[2018-09-18] MEDS: ASPIRIN EC 81 MG TABLET PO SCH (09:59)
[2018-09-18] MEDS: ALLOPURINOL 100 MG TABLET PO SCH (09:59)
[2018-09-18] MEDS: ATORVASTATIN 40 MG TABLET PO SCH (09:59)
[2018-09-18] MEDS: FLUTICASONE 50 MCG NASAL SPRAY 16 GM BOTTLE BOTH NARES SCH (09:59)
[2018-09-18] MEDS: FUROSEMIDE 40 MG/4 ML VIAL IV SCH (10:21)
[2018-09-18] MEDS: ALBUTEROL 0.63 MG/3 ML NEB RESP TX SCH ×2 (15:55→19:20)
[2018-09-18] MEDS: LEVOFLOXACIN INJ 500 MG in PREMIX 1 EACH IV SCH (16:17)
[2018-09-18] MEDS: FUROSEMIDE 40 MG TABLET PO SCH (16:30)
[2018-09-19] MEDS: ALBUTEROL 0.63 MG/3 ML NEB RESP TX SCH ×2 (00:30→07:33)
[2018-09-19] MEDS: methylPREDNISolone SOD SUC 40 MG/1 ML VIAL IV SCH ×2 (02:54→10:58)
[2018-09-19] MEDS: ATORVASTATIN 40 MG TABLET PO SCH (10:00)
[2018-09-19] MEDS: THEOPHYLLINE ER (24 HR) 300 MG CAPSULE PO SCH (10:00)
[2018-09-19] MEDS: INSULIN REGULAR 100 UNIT/ML SUBCUT SCH ×2 (10:24→13:35)
[2018-09-19] MEDS: ALLOPURINOL 100 MG TABLET PO SCH (10:44)
[2018-09-19] MEDS: POTASSIUM CHLORIDE 20 MEQ TABLET PO SCH (10:48)
[2018-09-19] MEDS: ASPIRIN EC 81 MG TABLET PO SCH (10:54)
[2018-09-19] MEDS: LOSARTAN 25 MG TABLET PO SCH (10:54)
[2018-09-19] MEDS: TAMSULOSIN 0.4 MG CAPSULE PO SCH (10:54)
[2018-09-19] MEDS: COLCHICINE 0.6 MG TABLET PO SCH (10:55)
[2018-09-19] MEDS: PANTOPRAZOLE 40 MG TABLET PO SCH (10:56)
[2018-09-19] MEDS: CARVEDILOL 3.125 MG TABLET PO SCH (11:00)
[2018-09-19] MEDS: FUROSEMIDE 40 MG/4 ML VIAL IV SCH (11:01)
[2018-09-19] MEDS: FLUTICASONE 50 MCG NASAL SPRAY 16 GM BOTTLE BOTH NARES SCH (11:12)
[2018-09-19] MEDS ORDERED: LEVOFLOXACIN 500 MG TABLET PO SCH (12:30)
[2018-09-19 16:01] VITALS: BP 141/88
== END 2018-09-19 15:00 | disposition home or self-care (01) | DRG 190 ==
LOC: N.ED 09:36 → SUATTDRO 13:48 → N.EDINP 13:48 → N.5E 14:27
PROVIDERS: ADMIT Internal Medicine; ATTEND Hospitalist

== ENCOUNTER 2018-09-29 10:37 | Observation (INO) ==
[2018-09-29] MEDS ORDERED: NITROGLYCERIN 2% OINT 1 INCH/GM PACK TOP STA (12:13)
[2018-09-29] MEDS ORDERED: KETOROLAC 30 MG/1 ML VIAL IV STA ×2 (12:13)
[2018-09-29] MEDS ORDERED: ORPHENADRINE 60 MG/2 ML VIAL IV STA (12:13)
[2018-09-29] MEDS ORDERED: ASPIRIN 325 MG TABLET PO STA (12:13)
[2018-09-29] MEDS ORDERED: ALBUTEROL/IPRATROPIUM 3 ML NEB RESP TX STA (12:13)
[2018-09-29] MEDS ORDERED: ONDANSETRON 4 MG/2 ML VIAL IV STA (12:13)
[2018-09-29 12:38] LABS: Basophils % 0.5 % (0.0-0.8); Eosinophils # 0.2 10*3/uL (0.0-0.87); Hematocrit 52.2 VOL% (42.0-52.0); Hemoglobin 16.8 GM/DL (14.0-18.0); Immature Granulocytes % 0.5 %; Immature Granulocytes Absolute 0.04 #; Lymphocytes # 1.1 10*3/uL (1.4-4.0); Lymphocytes % 13.4 % (21.2-54.2); Mean Corpuscular HGB Conc 32.2 GM/DL (32-36); Mean Corpuscular Hemoglobin 29 PG (27-34); Mean Corpuscular Volume 90.5 FL (87-102); Mean Platelet Volume 11.3 FL (9.6-12.0); Monocytes # 0.9 10*3/uL (0.11-0.8); Monocytes % 11.5 % (1.7-12.7); Neutrophils # 5.6 10*3/uL (1.4-7.4); Neutrophils % 71.1 % (38.7-73.9); Platelet Count 185 T/CUMM (130-400); Red Blood Count 5.77 MC/CUMM (3.8-5.5); Red Cell Distribution Width 14.4 % (9.3-17.3); White Blood Count 7.9 T/CUMM (4-12)
[2018-09-29 12:44] LABS: INR 0.9; PT Patient Result 10.3 SECS; Partial Thromboplastin Time 27.5 SECS (0-40)
[2018-09-29 12:53] LABS: Alanine Aminotransferase 18 U/L (16-61); Albumin 3.1 G/DL (3.4-5.0); Alkaline Phosphatase 166 U/L (45-117); Aspartate Amino Transferase 13 U/L (0-37); Blood Urea Nitrogen 25 MG/DL (7-18); Calcium 9.1 MG/DL (8.5-10.1); Glucose 87 MG/DL (74-106); Osmolality,Calculated 283.3 MOS/KG (273-304); Sodium 141 MMOL/L (136-145); Total Protein 7.2 G/DL (6.4-8.3); Troponin I < 0.015 NG/ML (0.00-0.045)
[2018-09-29] MEDS ORDERED: ENOXAPARIN 30 MG/0.3 ML SYRINGE ONE (13:52)
[2018-09-29 14:06] LABS: Apearance,Urine CLEAR (Clear); Bilirubin,Urine Negative (Negative); Blood, Urine Moderate mg/dL (Negative); Glucose,Urine (UA) Negative (Negative); Hyaline Casts,Urine 1 /LPF (0-3); Ketones,Urine Negative (Negative); Nitrite,Urine Negative (Negative); Protein,Urine Negative; RBC,Urine 2 /HPF (0-4); Urine Color Yellow (Yellow); Urine Specific Gravity 1.009 (1.001-1.035); Urine Urobilinogen < 2.0 EU/DL (0.2-1.0); WBC,Urine <1 /HPF (0-6)
[2018-09-29 14:12] LABS: Barbiturates Screen,Urine Negative (Negative); Benzodiazepines Screen,Urine Negative (Negative); Cannabinoid Screen,Urine Negative (Negative); Opiate Screen,Urine Negative (Negative); Phencyclidine Screen,Urine Negative (Negative)
[2018-09-29] MEDS ORDERED: FUROSEMIDE 40 MG/4 ML VIAL IV STA (14:35)
[2018-09-29] MEDS ORDERED: ACETAMINOPHEN 325 MG TABLET PO PRN (15:16)
[2018-09-29] MEDS ORDERED: DEXTROSE 50% 25 GM/50 ML VIAL IV PRN (15:16)
[2018-09-29] MEDS ORDERED: PROMETHAZINE 25 MG/1 ML VIAL IM PRN (15:16)
[2018-09-29] MEDS ORDERED: ONDANSETRON 4 MG/2 ML VIAL IV PRN (15:16)
[2018-09-29] MEDS ORDERED: GLUCAGON 1 MG VIAL IM PRN (15:16)
[2018-09-29] MEDS ORDERED: ALBUTEROL 2.5 MG/3 ML NEB RESP TX PRN (15:19)
[2018-09-29] MEDS ORDERED: ALBUTEROL/IPRATROPIUM 3 ML NEB RESP TX PRN (15:19)
[2018-09-29] MEDS: PANTOPRAZOLE 40 MG TABLET PO SCH (15:55)
[2018-09-29 15:57] LABS: Thyroid Stimulating Hormone 2.3 uIU/ml (0.358-3.74)
[2018-09-29] MEDS: INSULIN LISPRO 100 UNIT/ML SUBCUT SCH ×2 (17:23→20:36)
[2018-09-29] MEDS: TORSEMIDE 20 MG TABLET PO SCH (17:46)
[2018-09-29] MEDS: POTASSIUM CHLORIDE 10 MEQ TABLET PO SCH (20:39)
[2018-09-29] MEDS: CARVEDILOL 3.125 MG TABLET PO SCH (20:39)
[2018-09-29] MEDS: TAMSULOSIN 0.4 MG CAPSULE PO SCH (20:39)
[2018-09-30 05:41] LABS: Basophils % 0.3 % (0.0-0.8); Eosinophils # 0.3 10*3/uL (0.0-0.87); Eosinophils % 3.8 % (0.00-10.9); Hematocrit 47.2 VOL% (42.0-52.0); Hemoglobin 14.8 GM/DL (14.0-18.0); Immature Granulocytes % 0.3 %; Immature Granulocytes Absolute 0.02 #; Lymphocytes # 1.3 10*3/uL (1.4-4.0); Lymphocytes % 18.6 % (21.2-54.2); Mean Corpuscular HGB Conc 31.4 GM/DL (32-36); Mean Corpuscular Hemoglobin 29 PG (27-34); Mean Corpuscular Volume 91.5 FL (87-102); Mean Platelet Volume 11.5 FL (9.6-12.0); Monocytes % 14.2 % (1.7-12.7); Neutrophils # 4.5 10*3/uL (1.4-7.4); Neutrophils % 62.8 % (38.7-73.9); Platelet Count 181 T/CUMM (130-400); Red Blood Count 5.16 MC/CUMM (3.8-5.5); Red Cell Distribution Width 14.1 % (9.3-17.3); White Blood Count 7.1 T/CUMM (4-12)
[2018-09-30 06:03] LABS: Albumin 2.7 G/DL (3.4-5.0); Bilirubin,Total 1.2 MG/DL (0.2-1.0); Calcium 8.5 MG/DL (8.5-10.1); Osmolality,Calculated 282.4 MOS/KG (273-304); Potassium 3.6 MMOL/L (3.5-5.1); Risk Ratio 2.53; Total Protein 6.9 G/DL (6.4-8.3); VLDL CHOLESTEROL 13.8 MG/DL
[2018-09-30] MEDS ORDERED: FUROSEMIDE 40 MG/4 ML VIAL IV ONE ×2 (09:00→16:00)
[2018-09-30] MEDS ORDERED: POTASSIUM CHLORIDE 20 MEQ TABLET PO ONE ×2 (09:02→16:00)
[2018-09-30] MEDS: THEOPHYLLINE ER (24 HR) 300 MG CAPSULE PO SCH (10:04)
[2018-09-30] MEDS: TORSEMIDE 20 MG TABLET PO SCH (10:04)
[2018-09-30] MEDS: ATORVASTATIN 40 MG TABLET PO SCH (10:04)
[2018-09-30] MEDS: TAMSULOSIN 0.4 MG CAPSULE PO SCH ×2 (10:05→20:10)
[2018-09-30] MEDS: ALLOPURINOL 100 MG TABLET PO SCH (10:05)
[2018-09-30] MEDS: COLCHICINE 0.6 MG CAPSULE PO SCH (10:05)
[2018-09-30] MEDS: ASPIRIN EC 81 MG TABLET PO SCH (10:05)
[2018-09-30] MEDS: LOSARTAN 25 MG TABLET PO SCH ×2 (10:05→10:10)
[2018-09-30] MEDS: FLUTICASONE 50 MCG NASAL SPRAY 16 GM BOTTLE BOTH NARES SCH (10:06)
[2018-09-30] MEDS: POTASSIUM CHLORIDE 10 MEQ TABLET PO SCH ×2 (10:06→20:10)
[2018-09-30] MEDS: CARVEDILOL 3.125 MG TABLET PO SCH ×2 (10:06→20:10)
[2018-09-30] MEDS: PANTOPRAZOLE 40 MG TABLET PO SCH (10:07)
[2018-09-30] MEDS: INSULIN LISPRO 100 UNIT/ML SUBCUT SCH ×3 (10:10→17:01)
[2018-09-30] MEDS: TROLAMINE SALICYLATE 10% CREAM 85 GM TUBE TOP PRN ×2 (14:22→20:10)
[2018-09-30] MEDS: METHOCARBAMOL 500 MG TABLET PO SCH ×2 (14:23→20:09)
[2018-10-01] MEDS: INSULIN LISPRO 100 UNIT/ML SUBCUT SCH ×2 (02:39→08:05)
[2018-10-01 05:28] LABS: Calcium 8.8 MG/DL (8.5-10.1); Osmolality,Calculated 285.4 MOS/KG (273-304); Potassium 3.7 MMOL/L (3.5-5.1)
[2018-10-01 07:26] VITALS: BP 100/74
[2018-10-01] MEDS: TORSEMIDE 20 MG TABLET PO SCH (08:51)
[2018-10-01] MEDS: FLUTICASONE 50 MCG NASAL SPRAY 16 GM BOTTLE BOTH NARES SCH (08:51)
[2018-10-01] MEDS: THEOPHYLLINE ER (24 HR) 300 MG CAPSULE PO SCH (08:51)
[2018-10-01] MEDS: LOSARTAN 25 MG TABLET PO SCH (08:52)
[2018-10-01] MEDS: CARVEDILOL 3.125 MG TABLET PO SCH (08:52)
[2018-10-01] MEDS: METHOCARBAMOL 500 MG TABLET PO SCH (08:52)
[2018-10-01] MEDS: ALLOPURINOL 100 MG TABLET PO SCH (08:52)
[2018-10-01] MEDS: COLCHICINE 0.6 MG CAPSULE PO SCH (08:53)
[2018-10-01] MEDS: POTASSIUM CHLORIDE 10 MEQ TABLET PO SCH (08:53)
[2018-10-01] MEDS: TAMSULOSIN 0.4 MG CAPSULE PO SCH (08:53)
[2018-10-01] MEDS: ASPIRIN EC 81 MG TABLET PO SCH (08:53)
[2018-10-01] MEDS: ATORVASTATIN 40 MG TABLET PO SCH (08:53)
[2018-10-01] MEDS: PANTOPRAZOLE 40 MG TABLET PO SCH (08:53)
[2018-10-01] MEDS: TROLAMINE SALICYLATE 10% CREAM 85 GM TUBE TOP PRN (08:59)
== END 2018-10-01 11:15 | disposition home or self-care (01) ==
LOC: N.EDINP 10:37 → N.ED 10:37 → N.5E 16:16
PROVIDERS: ADMIT Internal Medicine Cardiovascular Disease; ATTEND Internal Medicine Cardiovascular Disease

== ENCOUNTER 2018-11-13 17:35 | Inpatient (IN) ==
[2018-11-13] MEDS ORDERED: FUROSEMIDE 40 MG/4 ML VIAL IV STA (20:04)
[2018-11-13 20:24] LABS: Apearance,Urine CLOUDY (Clear); Bilirubin,Urine Negative (Negative); Blood, Urine Large mg/dL (Negative); Glucose,Urine (UA) Negative (Negative); Ketones,Urine Negative (Negative); Mucus,Urine Occasional /LPF (Occasional); Nitrite,Urine Negative (Negative); Protein,Urine 30 MG/DL; RBC,Urine 34 /HPF (0-4); Sperm,Urine Few /HPF (Negative); Squamous Epithelial Cell,Urine Occasional /HPF (0-10); Urine Color Amber (Yellow); Urine Specific Gravity 1.016 (1.001-1.035); WBC,Urine 171 /HPF (0-6)
[2018-11-13 20:42] LABS: Basophils # 0.1 10*3/uL (0.0-0.2); Basophils % 0.3 % (0.0-0.8); Eosinophils % 0.1 % (0.00-10.9); Hemoglobin 16.5 GM/DL (14.0-18.0); Mean Corpuscular Volume 85.9 FL (87-102)
[2018-11-13 20:49] LABS: Hematocrit 50.5 VOL% (42.0-52.0); Immature Granulocytes % 0.9 %; Immature Granulocytes Absolute 0.18 #; Lymphocytes # 1.5 10*3/uL (1.4-4.0); Mean Corpuscular HGB Conc 32.7 GM/DL (32-36); Mean Corpuscular Hemoglobin 28 PG (27-34); Mean Platelet Volume 11.1 FL (9.6-12.0); Monocytes # 1.5 10*3/uL (0.11-0.8); Monocytes % 7.8 % (1.7-12.7); Neutrophils # 15.8 10*3/uL (1.4-7.4); Neutrophils % 82.9 % (38.7-73.9); Platelet Count 163 T/CUMM (130-400); Red Blood Count 5.88 MC/CUMM (3.8-5.5); Red Cell Distribution Width 14.1 % (9.3-17.3); White Blood Count 19.1 T/CUMM (4-12)
[2018-11-13 21:02] LABS: Albumin 3.1 G/DL (3.4-5.0); Bilirubin,Total 2.1 MG/DL (0.2-1.0); Calcium 9.3 MG/DL (8.5-10.1); Potassium 3.9 MMOL/L (3.5-5.1); Total Protein 7.6 G/DL (6.4-8.3)
[2018-11-13] MEDS ORDERED: cefTRIAXone 1,000 MG in SODIUM CHLORIDE 0.9% 100 ML IV STA (21:48)
[2018-11-13] MEDS ORDERED: DEXTROSE 50% 25 GM/50 ML VIAL IV PRN ×2 (23:50)
[2018-11-13] MEDS ORDERED: MAGNESIUM SULF RIDER 2 GM in PREMIX 1 EACH IV PRN (23:50)
[2018-11-13] MEDS ORDERED: MAGNESIUM SULF RIDER 4 GM in PREMIX 1 EACH IV PRN (23:50)
[2018-11-13] MEDS ORDERED: ZALEPLON 5 MG CAPSULE PO PRN (23:50)
[2018-11-13] MEDS ORDERED: ACETAMINOPHEN 325 MG TABLET PO PRN (23:50)
[2018-11-13] MEDS ORDERED: ONDANSETRON 4 MG/2 ML VIAL IV PRN (23:50)
[2018-11-13] MEDS ORDERED: GLUCAGON 1 MG VIAL IM PRN ×2 (23:50)
[2018-11-14] MEDS ORDERED: traMADol 50 MG TABLET PO PRN
[2018-11-14] MEDS: ALBUTEROL/IPRATROPIUM 3 ML NEB RESP TX SCH ×4 (01:15→19:37)
[2018-11-14] MEDS: INSULIN REGULAR 100 UNIT/ML SUBCUT SCH ×5 (02:29→20:44)
[2018-11-14] MEDS: TAMSULOSIN 0.4 MG CAPSULE PO SCH ×3 (02:54→20:43)
[2018-11-14 07:30] LABS: Basophils # 0.1 10*3/uL (0.0-0.2); Basophils % 0.3 % (0.0-0.8); Eosinophils % 0.1 % (0.00-10.9); Hematocrit 49.7 VOL% (42.0-52.0); Hemoglobin 16.2 GM/DL (14.0-18.0); Immature Granulocytes % 0.7 %; Immature Granulocytes Absolute 0.13 #; Lymphocytes # 1.4 10*3/uL (1.4-4.0); Lymphocytes % 7.6 % (21.2-54.2); Mean Corpuscular HGB Conc 32.6 GM/DL (32-36); Mean Corpuscular Hemoglobin 28 PG (27-34); Mean Corpuscular Volume 85.1 FL (87-102); Mean Platelet Volume 11.5 FL (9.6-12.0); Monocytes # 1.4 10*3/uL (0.11-0.8); Monocytes % 7.5 % (1.7-12.7); Neutrophils # 15.9 10*3/uL (1.4-7.4); Neutrophils % 83.8 % (38.7-73.9); Platelet Count 155 T/CUMM (130-400); Red Blood Count 5.84 MC/CUMM (3.8-5.5); Red Cell Distribution Width 14.2 % (9.3-17.3)
[2018-11-14 07:57] LABS: Albumin 2.9 G/DL (3.4-5.0); Bilirubin,Total 2.5 MG/DL (0.2-1.0); Calcium 9.7 MG/DL (8.5-10.1); Osmolality,Calculated 272.4 MOS/KG (273-304); Potassium 3.8 MMOL/L (3.5-5.1); Total Protein 8.1 G/DL (6.4-8.3)
[2018-11-14] MEDS ORDERED: COLCHICINE 0.6 MG CAPSULE PO SCH (09:00)
[2018-11-14] MEDS: THEOPHYLLINE ER (24 HR) 200 MG CAPSULE PO SCH (09:12)
[2018-11-14] MEDS: PANTOPRAZOLE 40 MG TABLET PO SCH (09:12)
[2018-11-14] MEDS: ATORVASTATIN 40 MG TABLET PO SCH (09:12)
[2018-11-14] MEDS: CARVEDILOL 3.125 MG TABLET PO SCH ×2 (09:12→16:31)
[2018-11-14] MEDS: FUROSEMIDE 20 MG/2 ML VIAL IV SCH ×2 (09:13→16:31)
[2018-11-14] MEDS: methylPREDNISolone SOD SUC 40 MG/1 ML VIAL IV SCH (18:35)
[2018-11-14] MEDS: AZITHROMYCIN INJ 500 MG in SODIUM CHLORIDE 0.9% 250 ML IV SCH (18:35)
[2018-11-14] MEDS: DICLOFENAC 1% GEL 100 GM TUBE TOP SCH (21:22)
[2018-11-14] MEDS: cefTRIAXone 1,000 MG in SODIUM CHLORIDE 0.9% 100 ML IV SCH (22:19)
[2018-11-15] MEDS: ALBUTEROL/IPRATROPIUM 3 ML NEB RESP TX SCH ×4 (00:23→19:13)
[2018-11-15] MEDS: methylPREDNISolone SOD SUC 40 MG/1 ML VIAL IV SCH ×2 (06:28→20:36)
[2018-11-15] MEDS: THEOPHYLLINE ER (24 HR) 200 MG CAPSULE PO SCH (08:45)
[2018-11-15] MEDS: ENOXAPARIN 40 MG/0.4 ML SYRINGE SUBCUT SCH (08:46)
[2018-11-15] MEDS: PANTOPRAZOLE 40 MG TABLET PO SCH (08:46)
[2018-11-15] MEDS: ATORVASTATIN 40 MG TABLET PO SCH (08:46)
[2018-11-15] MEDS: DICLOFENAC 1% GEL 100 GM TUBE TOP SCH ×3 (08:46→21:13)
[2018-11-15] MEDS: TAMSULOSIN 0.4 MG CAPSULE PO SCH ×2 (08:46→20:33)
[2018-11-15] MEDS: CARVEDILOL 3.125 MG TABLET PO SCH ×2 (08:47→16:33)
[2018-11-15] MEDS: INSULIN REGULAR 100 UNIT/ML SUBCUT SCH ×4 (08:48→21:13)
[2018-11-15 10:12] LABS: Calcium 9.7 MG/DL (8.5-10.1); Potassium 3.8 MMOL/L (3.5-5.1)
[2018-11-15] MEDS ORDERED: SODIUM CHLORIDE 0.9% 500 ML IV SCH (11:30)
[2018-11-15] MEDS: ALLOPURINOL 100 MG TABLET PO SCH (12:25)
[2018-11-15] MEDS: cefTRIAXone 1,000 MG in SODIUM CHLORIDE 0.9% 100 ML IV SCH (20:33)
[2018-11-15] MEDS: AZITHROMYCIN INJ 500 MG in SODIUM CHLORIDE 0.9% 250 ML IV SCH (21:12)
[2018-11-16] MEDS: ALBUTEROL/IPRATROPIUM 3 ML NEB RESP TX SCH ×2 (00:13→07:15)
[2018-11-16 05:43] LABS: Calcium 9.7 MG/DL (8.5-10.1); Osmolality,Calculated 284.5 MOS/KG (273-304); Potassium 3.8 MMOL/L (3.5-5.1)
[2018-11-16] MEDS: INSULIN REGULAR 100 UNIT/ML SUBCUT SCH ×2 (07:29→12:49)
[2018-11-16] MEDS: CARVEDILOL 3.125 MG TABLET PO SCH (07:38)
[2018-11-16] MEDS: TAMSULOSIN 0.4 MG CAPSULE PO SCH (08:08)
[2018-11-16] MEDS: ALLOPURINOL 100 MG TABLET PO SCH (08:09)
[2018-11-16] MEDS: PANTOPRAZOLE 40 MG TABLET PO SCH (08:09)
[2018-11-16] MEDS: THEOPHYLLINE ER (24 HR) 200 MG CAPSULE PO SCH (08:09)
[2018-11-16] MEDS: ATORVASTATIN 40 MG TABLET PO SCH (08:09)
[2018-11-16] MEDS: ENOXAPARIN 40 MG/0.4 ML SYRINGE SUBCUT SCH (08:09)
[2018-11-16] MEDS: DICLOFENAC 1% GEL 100 GM TUBE TOP SCH (08:10)
[2018-11-16] MEDS: methylPREDNISolone SOD SUC 40 MG/1 ML VIAL IV SCH (08:10)
[2018-11-16 08:33] LABS: Basophils % 0.1 % (0.0-0.8); Hematocrit 45.7 VOL% (42.0-52.0); Hemoglobin 14.5 GM/DL (14.0-18.0); Immature Granulocytes % 0.4 %; Immature Granulocytes Absolute 0.06 #; Lymphocytes # 0.7 10*3/uL (1.4-4.0); Mean Corpuscular HGB Conc 31.7 GM/DL (32-36); Mean Corpuscular Hemoglobin 28 PG (27-34); Mean Corpuscular Volume 87.4 FL (87-102); Mean Platelet Volume 11.5 FL (9.6-12.0); Monocytes # 0.5 10*3/uL (0.11-0.8); Neutrophils # 12.1 10*3/uL (1.4-7.4); Neutrophils % 90.5 % (38.7-73.9); Red Blood Count 5.23 MC/CUMM (3.8-5.5); Red Cell Distribution Width 13.5 % (9.3-17.3); White Blood Count 13.4 T/CUMM (4-12)
[2018-11-16 08:34] LABS: Platelet Count 191 T/CUMM (130-400)
[2018-11-16 12:01] VITALS: BP 114/73
== END 2018-11-16 13:03 | disposition home or self-care (01) | DRG 191 ==
LOC: N.ED 17:35 → N.EDINP 17:35 → N.2E 11-14 01:12
PROVIDERS: ADMIT Internal Medicine; ATTEND Internal Medicine

== ENCOUNTER 2018-12-19 02:13 | Inpatient (IN) ==
[2018-12-19 03:25] LABS: Basophils % 0.2 % (0.0-0.8); Eosinophils # 0.1 10*3/uL (0.0-0.87); Eosinophils % 0.3 % (0.00-10.9); Hematocrit 40.9 VOL% (42.0-52.0); Immature Granulocytes % 0.6 %; Immature Granulocytes Absolute 0.11 #; Lymphocytes # 1.1 10*3/uL (1.4-4.0); Lymphocytes % 6.1 % (21.2-54.2); Mean Corpuscular HGB Conc 31.8 GM/DL (32-36); Mean Corpuscular Hemoglobin 27 PG (27-34); Mean Corpuscular Volume 86.3 FL (87-102); Mean Platelet Volume 10.6 FL (9.6-12.0); Monocytes # 1.2 10*3/uL (0.11-0.8); Monocytes % 6.5 % (1.7-12.7); Neutrophils # 16.1 10*3/uL (1.4-7.4); Neutrophils % 86.3 % (38.7-73.9); Platelet Count 236 T/CUMM (130-400); Red Blood Count 4.74 MC/CUMM (3.8-5.5); Red Cell Distribution Width 14.7 % (9.3-17.3); White Blood Count 18.7 T/CUMM (4-12)
[2018-12-19 03:27] LABS: ABG HCO3 24.9 MMOL/L (20-26); ABG Oxygen Saturation 82.9 % (95-100); ABG PCO2 34.1 MM HG (35-48); ABG PH 7.459 (7.35-7.45); ABG PO2 48.6 MM HG (80-95); Allen Test Positive
[2018-12-19 03:35] LABS: INR 1.1; PT Patient Result 11.4 SECS; Partial Thromboplastin Time 29.6 SECS (0-40)
[2018-12-19] MEDS ORDERED: MORPHINE 4 MG/1 ML VIAL IV STA (03:35)
[2018-12-19] MEDS ORDERED: ONDANSETRON 4 MG/2 ML VIAL IV ONE (03:35)
[2018-12-19 03:56] LABS: Albumin 2.2 G/DL (3.4-5.0); Bilirubin,Total 0.9 MG/DL (0.2-1.0); Osmolality,Calculated 282.3 MOS/KG (273-304); Potassium 3.3 MMOL/L (3.5-5.1); Total Protein 7.2 G/DL (6.4-8.3)
[2018-12-19] MEDS ORDERED: LEVOFLOXACIN INJ 500 MG in PREMIX 1 EACH IV STA (04:46)
[2018-12-19 07:04] LABS: Apearance,Urine Slightly Hazy (Clear); Bilirubin,Urine Negative (Negative); Blood, Urine Large mg/dL (Negative); Glucose,Urine (UA) Negative (Negative); Hyaline Casts,Urine 1 /LPF (0-3); Ketones,Urine Negative (Negative); Mucus,Urine Occasional /LPF (Occasional); Nitrite,Urine Negative (Negative); Protein,Urine 30 MG/DL; RBC,Urine 14 /HPF (0-4); Squamous Epithelial Cell,Urine Occasional /HPF (0-10); Urine Color Amber (Yellow); Urine Specific Gravity 1.019 (1.001-1.035); WBC,Urine 164 /HPF (0-6)
[2018-12-19] MEDS ORDERED: MORPHINE 4 MG/1 ML VIAL IV PRN (07:52)
[2018-12-19] MEDS ORDERED: ONDANSETRON 4 MG/2 ML VIAL IV PRN (07:52)
[2018-12-19] MEDS ORDERED: DOCUSATE SODIUM 100 MG CAPSULE PO PRN (07:52)
[2018-12-19] MEDS ORDERED: DEXTROSE 50% 25 GM/50 ML SYRINGE IV PRN (07:52)
[2018-12-19] MEDS ORDERED: GLUCAGON 1 MG VIAL IM PRN (07:52)
[2018-12-19] MEDS ORDERED: guaiFENesin/DM ER 600-30 MG TABLET PO PRN (07:52)
[2018-12-19] MEDS ORDERED: LACTULOSE 20 GM/30 ML UDCUP PO PRN (07:52)
[2018-12-19] MEDS ORDERED: ACETAMINOPHEN 325 MG TABLET PO PRN (07:54)
[2018-12-19] MEDS ORDERED: COLCHICINE 0.6 MG CAPSULE PO PRN (08:00)
[2018-12-19] MEDS: INSULIN LISPRO 100 UNIT/ML SUBCUT SCH ×4 (08:42→21:58)
[2018-12-19] MEDS ORDERED: MAGNESIUM SULF RIDER 2 GM in PREMIX 1 EACH IV ONE (09:00)
[2018-12-19] MEDS: THEOPHYLLINE ER (24 HR) 300 MG CAPSULE PO SCH (09:34)
[2018-12-19] MEDS: ATORVASTATIN 40 MG TABLET PO SCH (09:35)
[2018-12-19] MEDS: ALLOPURINOL 100 MG TABLET PO SCH (09:35)
[2018-12-19] MEDS: MAGNESIUM OXIDE 400 MG TABLET PO SCH (09:36)
[2018-12-19] MEDS: TAMSULOSIN 0.4 MG CAPSULE PO SCH ×2 (09:37→23:20)
[2018-12-19] MEDS: ASPIRIN EC 81 MG TABLET PO SCH (09:37)
[2018-12-19] MEDS: FLUTICASONE 50 MCG NASAL SPRAY 16 GM BOTTLE BOTH NARES SCH (09:38)
[2018-12-19] MEDS: ENOXAPARIN 40 MG/0.4 ML SYRINGE SUBCUT SCH (09:39)
[2018-12-19] MEDS: ALBUTEROL/IPRATROPIUM 3 ML NEB RESP TX SCH ×3 (09:40→19:12)
[2018-12-19] MEDS: FUROSEMIDE 40 MG/4 ML VIAL IV SCH ×2 (09:41→17:17)
[2018-12-19] MEDS ORDERED: PIPERACILLIN/TAZOBACTAM 3,375 MG in SODIUM CHLORIDE 0.9% 100 ML IV SCH (10:30)
[2018-12-19] MEDS: CARVEDILOL 3.125 MG TABLET PO SCH ×2 (10:38→16:40)
[2018-12-19] MEDS: POTASSIUM CHLORIDE 20 MEQ TABLET PO PRN ×3 (11:39→16:27)
[2018-12-19] MEDS: METHOCARBAMOL 500 MG TABLET PO PRN ×2 (16:27→23:20)
[2018-12-20] MEDS: ALBUTEROL/IPRATROPIUM 3 ML NEB RESP TX SCH ×4 (00:05→18:55)
[2018-12-20 05:37] LABS: Basophils % 0.3 % (0.0-0.8); Eosinophils # 0.2 10*3/uL (0.0-0.87); Eosinophils % 1.5 % (0.00-10.9); Hematocrit 38.2 VOL% (42.0-52.0); Hemoglobin 11.7 GM/DL (14.0-18.0); Immature Granulocytes % 0.6 %; Immature Granulocytes Absolute 0.06 #; Lymphocytes # 1.1 10*3/uL (1.4-4.0); Lymphocytes % 11.6 % (21.2-54.2); Mean Corpuscular HGB Conc 30.6 GM/DL (32-36); Mean Corpuscular Hemoglobin 27 PG (27-34); Mean Platelet Volume 10.7 FL (9.6-12.0); Monocytes # 0.9 10*3/uL (0.11-0.8); Monocytes % 9.3 % (1.7-12.7); Neutrophils # 7.6 10*3/uL (1.4-7.4); Neutrophils % 76.7 % (38.7-73.9); Platelet Count 211 T/CUMM (130-400); Red Blood Count 4.34 MC/CUMM (3.8-5.5); Red Cell Distribution Width 14.7 % (9.3-17.3); White Blood Count 9.9 T/CUMM (4-12)
[2018-12-20 05:55] LABS: Albumin 2.2 G/DL (3.4-5.0); Bilirubin,Total 0.7 MG/DL (0.2-1.0); Calcium 8.7 MG/DL (8.5-10.1); Osmolality,Calculated 280.4 MOS/KG (273-304); Potassium 3.7 MMOL/L (3.5-5.1); Total Protein 6.7 G/DL (6.4-8.3)
[2018-12-20] MEDS: PANTOPRAZOLE 40 MG TABLET PO SCH (06:17)
[2018-12-20] MEDS: ASPIRIN EC 81 MG TABLET PO SCH (09:59)
[2018-12-20] MEDS: CARVEDILOL 3.125 MG TABLET PO SCH ×2 (09:59→17:03)
[2018-12-20] MEDS: ATORVASTATIN 40 MG TABLET PO SCH (09:59)
[2018-12-20] MEDS: THEOPHYLLINE ER (24 HR) 300 MG CAPSULE PO SCH (09:59)
[2018-12-20] MEDS: TAMSULOSIN 0.4 MG CAPSULE PO SCH ×2 (09:59→20:40)
[2018-12-20] MEDS: MAGNESIUM OXIDE 400 MG TABLET PO SCH (09:59)
[2018-12-20] MEDS: ALLOPURINOL 100 MG TABLET PO SCH (09:59)
[2018-12-20] MEDS: ENOXAPARIN 40 MG/0.4 ML SYRINGE SUBCUT SCH (10:00)
[2018-12-20] MEDS: FLUTICASONE 50 MCG NASAL SPRAY 16 GM BOTTLE BOTH NARES SCH (10:00)
[2018-12-20] MEDS: LEVOFLOXACIN INJ 500 MG in PREMIX 1 EACH IV SCH (10:01)
[2018-12-20] MEDS: INSULIN LISPRO 100 UNIT/ML SUBCUT SCH ×3 (10:24→17:07)
[2018-12-20] MEDS: FUROSEMIDE 40 MG/4 ML VIAL IV SCH ×2 (11:31→15:00)
[2018-12-21] MEDS: ALBUTEROL/IPRATROPIUM 3 ML NEB RESP TX SCH ×5 (00:10→23:47)
[2018-12-21] MEDS: FUROSEMIDE 40 MG/4 ML VIAL IV SCH ×4 (00:54→22:57)
[2018-12-21] MEDS: INSULIN LISPRO 100 UNIT/ML SUBCUT SCH ×5 (00:55→21:00)
[2018-12-21 04:16] LABS: Basophils % 0.5 % (0.0-0.8); Eosinophils # 0.2 10*3/uL (0.0-0.87); Eosinophils % 2.1 % (0.00-10.9); Hematocrit 38.9 VOL% (42.0-52.0); Immature Granulocytes % 0.5 %; Immature Granulocytes Absolute 0.04 #; Lymphocytes # 1.2 10*3/uL (1.4-4.0); Lymphocytes % 14.9 % (21.2-54.2); Mean Corpuscular HGB Conc 30.8 GM/DL (32-36); Mean Corpuscular Hemoglobin 27 PG (27-34); Mean Platelet Volume 10.9 FL (9.6-12.0); Monocytes # 1.1 10*3/uL (0.11-0.8); Monocytes % 12.9 % (1.7-12.7); NRBC # 0.02 10*3/uL; Neutrophils # 5.7 10*3/uL (1.4-7.4); Neutrophils % 69.1 % (38.7-73.9); Platelet Count 236 T/CUMM (130-400); Red Blood Count 4.47 MC/CUMM (3.8-5.5); Red Cell Distribution Width 14.7 % (9.3-17.3); White Blood Count 8.2 T/CUMM (4-12)
[2018-12-21 04:51] LABS: Albumin 2.3 G/DL (3.4-5.0); Bilirubin,Total 1.1 MG/DL (0.2-1.0); Calcium 9.2 MG/DL (8.5-10.1); Osmolality,Calculated 280.4 MOS/KG (273-304); Potassium 3.5 MMOL/L (3.5-5.1); Total Protein 7.2 G/DL (6.4-8.3)
[2018-12-21] MEDS: PANTOPRAZOLE 40 MG TABLET PO SCH (05:45)
[2018-12-21] MEDS: FLUTICASONE 50 MCG NASAL SPRAY 16 GM BOTTLE BOTH NARES SCH (08:32)
[2018-12-21] MEDS: THEOPHYLLINE ER (24 HR) 300 MG CAPSULE PO SCH (08:33)
[2018-12-21] MEDS: ALLOPURINOL 100 MG TABLET PO SCH (08:34)
[2018-12-21] MEDS: TAMSULOSIN 0.4 MG CAPSULE PO SCH ×2 (08:34→21:00)
[2018-12-21] MEDS: ASPIRIN EC 81 MG TABLET PO SCH (08:35)
[2018-12-21] MEDS: ATORVASTATIN 40 MG TABLET PO SCH (08:35)
[2018-12-21] MEDS: CARVEDILOL 3.125 MG TABLET PO SCH ×2 (08:35→18:12)
[2018-12-21] MEDS: ENOXAPARIN 40 MG/0.4 ML SYRINGE SUBCUT SCH (08:36)
[2018-12-21] MEDS: MAGNESIUM OXIDE 400 MG TABLET PO SCH (09:14)
[2018-12-21] MEDS: LEVOFLOXACIN INJ 500 MG in PREMIX 1 EACH IV SCH (09:15)
[2018-12-21] MEDS: COLCHICINE 0.6 MG CAPSULE PO SCH (21:00)
[2018-12-22] MEDS: METHOCARBAMOL 500 MG TABLET PO PRN (00:30)
[2018-12-22 04:54] LABS: Basophils # 0.1 10*3/uL (0.0-0.2); Basophils % 0.5 % (0.0-0.8); Eosinophils # 0.2 10*3/uL (0.0-0.87); Eosinophils % 1.7 % (0.00-10.9); Hematocrit 40.5 VOL% (42.0-52.0); Hemoglobin 12.6 GM/DL (14.0-18.0); Immature Granulocytes Absolute 0.09 #; Lymphocytes # 1.2 10*3/uL (1.4-4.0); Mean Corpuscular HGB Conc 31.1 GM/DL (32-36); Mean Corpuscular Hemoglobin 27 PG (27-34); Mean Corpuscular Volume 87.1 FL (87-102); Mean Platelet Volume 10.5 FL (9.6-12.0); Monocytes # 1.2 10*3/uL (0.11-0.8); Monocytes % 12.4 % (1.7-12.7); Neutrophils # 6.6 10*3/uL (1.4-7.4); Neutrophils % 71.4 % (38.7-73.9); Platelet Count 259 T/CUMM (130-400); Red Blood Count 4.65 MC/CUMM (3.8-5.5); Red Cell Distribution Width 14.7 % (9.3-17.3); White Blood Count 9.3 T/CUMM (4-12)
[2018-12-22 05:08] LABS: Albumin 2.3 G/DL (3.4-5.0); Bilirubin,Total 0.9 MG/DL (0.2-1.0); Calcium 8.9 MG/DL (8.5-10.1); Osmolality,Calculated 280.5 MOS/KG (273-304); Potassium 3.4 MMOL/L (3.5-5.1)
[2018-12-22] MEDS: FUROSEMIDE 40 MG/4 ML VIAL IV SCH (06:23)
[2018-12-22] MEDS: PANTOPRAZOLE 40 MG TABLET PO SCH (06:27)
[2018-12-22] MEDS: INSULIN LISPRO 100 UNIT/ML SUBCUT SCH (07:19)
[2018-12-22] MEDS: ALBUTEROL/IPRATROPIUM 3 ML NEB RESP TX SCH (07:21)
[2018-12-22 07:54] VITALS: BP 110/83
[2018-12-22] MEDS: COLCHICINE 0.6 MG CAPSULE PO SCH (09:05)
[2018-12-22] MEDS: TAMSULOSIN 0.4 MG CAPSULE PO SCH (09:05)
[2018-12-22] MEDS: FLUTICASONE 50 MCG NASAL SPRAY 16 GM BOTTLE BOTH NARES SCH (09:05)
[2018-12-22] MEDS: MAGNESIUM OXIDE 400 MG TABLET PO SCH (09:05)
[2018-12-22] MEDS: ASPIRIN EC 81 MG TABLET PO SCH (09:05)
[2018-12-22] MEDS: CARVEDILOL 3.125 MG TABLET PO SCH (09:06)
[2018-12-22] MEDS: ENOXAPARIN 40 MG/0.4 ML SYRINGE SUBCUT SCH (09:06)
[2018-12-22] MEDS: THEOPHYLLINE ER (24 HR) 300 MG CAPSULE PO SCH (09:06)
[2018-12-22] MEDS: POTASSIUM CHLORIDE 20 MEQ TABLET PO PRN (09:06)
[2018-12-22] MEDS: ALLOPURINOL 100 MG TABLET PO SCH (09:06)
[2018-12-22] MEDS: ATORVASTATIN 40 MG TABLET PO SCH (09:06)
== END 2018-12-22 10:45 | disposition home or self-care (01) | DRG 190 ==
LOC: N.ED 02:13 → N.EDINP 06:01 → N.2E 06:33
PROVIDERS: ADMIT Internal Medicine; ATTEND Internal Medicine

== ENCOUNTER 2019-02-28 22:08 | Inpatient (IN) ==
[2019-02-28] MEDS ORDERED: ONDANSETRON 4 MG/2 ML VIAL IV STA (23:01)
[2019-02-28] MEDS ORDERED: MORPHINE 4 MG/1 ML VIAL IV STA (23:01)
[2019-02-28] MEDS ORDERED: FUROSEMIDE 100 MG/10 ML VIAL IV STA (23:01)
[2019-02-28] MEDS ORDERED: ALUM/MAG/SIMETH/LIDO VISC 1:1 30 ML BOTTLE PO STA (23:01)
[2019-02-28] MEDS ORDERED: ALBUTEROL/IPRATROPIUM 3 ML NEB RESP TX STA (23:01)
[2019-02-28] MEDS ORDERED: NITROGLYCERIN 2% OINT 1 INCH/GM PACK TOP STA (23:01)
[2019-02-28 23:27] LABS: Alanine Aminotransferase 13 U/L (16-61); Albumin 3.5 G/DL (3.4-5.0); Alkaline Phosphatase 178 U/L (45-117); Aspartate Amino Transferase 10 U/L (0-37); Blood Urea Nitrogen 16 MG/DL (7-18); Calcium 9.4 MG/DL (8.5-10.1); Glucose 97 MG/DL (74-106); Osmolality,Calculated 279.4 MOS/KG (273-304); Total Protein 8.2 G/DL (6.4-8.3); Troponin I < 0.015 NG/ML (0.00-0.045)
[2019-02-28 23:28] LABS: Basophils % 0.4 % (0.0-0.8); Eosinophils # 0.1 10*3/uL (0.0-0.87); Eosinophils % 1.6 % (0.00-10.9); Hematocrit 43.5 VOL% (42.0-52.0); Hemoglobin 13.6 GM/DL (14.0-18.0); Immature Granulocytes % 0.4 %; Immature Granulocytes Absolute 0.03 #; Lymphocytes # 1.3 10*3/uL (1.4-4.0); Lymphocytes % 15.5 % (21.2-54.2); Mean Corpuscular HGB Conc 31.3 GM/DL (32-36); Mean Corpuscular Volume 89.3 FL (87-102); Neutrophils % 70.1 % (38.7-73.9); Platelet Count 209 T/CUMM (130-400); Red Blood Count 4.87 MC/CUMM (3.8-5.5); Red Cell Distribution Width 15.1 % (9.3-17.3); White Blood Count 8.2 T/CUMM (4-12)
[2019-02-28 23:34] LABS: PT Patient Result 10.7 SECS
[2019-03-01 00:52] LABS: Apearance,Urine CLEAR (Clear); Bilirubin,Urine Negative (Negative); Blood, Urine Moderate mg/dL (Negative); Glucose,Urine (UA) Negative (Negative); Hyaline Casts,Urine 5 /LPF (0-3); Ketones,Urine Negative (Negative); Nitrite,Urine Negative (Negative); Protein,Urine Negative; RBC,Urine 3 /HPF (0-4); Urine Color Yellow (Yellow); Urine Specific Gravity 1.014 (1.001-1.035); WBC,Urine <1 /HPF (0-6)
[2019-03-01] MEDS ORDERED: DOCUSATE SODIUM 100 MG CAPSULE PO PRN (01:48)
[2019-03-01] MEDS ORDERED: ZALEPLON 5 MG CAPSULE PO PRN (01:48)
[2019-03-01] MEDS ORDERED: ONDANSETRON 4 MG/2 ML VIAL IV PRN (01:48)
[2019-03-01] MEDS ORDERED: ACETAMINOPHEN 325 MG TABLET PO PRN (01:48)
[2019-03-01] MEDS ORDERED: traMADol 50 MG TABLET PO PRN (01:51)
[2019-03-01] MEDS: ALBUTEROL/IPRATROPIUM 3 ML NEB RESP TX SCH ×5 (02:50→19:03)
[2019-03-01] MEDS ORDERED: HYDROmorphone 2 MG/1 ML VIAL IV STA (03:11)
[2019-03-01 06:17] LABS: Basophils % 0.2 % (0.0-0.8); Eosinophils # 0.1 10*3/uL (0.0-0.87); Eosinophils % 0.9 % (0.00-10.9); Hematocrit 40.1 VOL% (42.0-52.0); Hemoglobin 12.8 GM/DL (14.0-18.0); Immature Granulocytes % 0.3 %; Immature Granulocytes Absolute 0.03 #; Lymphocytes # 0.8 10*3/uL (1.4-4.0); Lymphocytes % 8.1 % (21.2-54.2); Mean Corpuscular HGB Conc 31.9 GM/DL (32-36); Mean Corpuscular Volume 88.5 FL (87-102); Mean Platelet Volume 10.3 FL (9.6-12.0); Monocytes % 11.1 % (1.7-12.7); Neutrophils % 79.4 % (38.7-73.9); Platelet Count 195 T/CUMM (130-400); Red Blood Count 4.53 MC/CUMM (3.8-5.5); Red Cell Distribution Width 15.3 % (9.3-17.3); White Blood Count 9.3 T/CUMM (4-12)
[2019-03-01] MEDS: LEVOFLOXACIN INJ 750 MG in PREMIX 1 EACH IV SCH (06:29)
[2019-03-01 07:04] LABS: Calcium 9.6 MG/DL (8.5-10.1); Osmolality,Calculated 281.4 MOS/KG (273-304); Risk Ratio 2.87; Thyroid Stimulating Hormone 3.9 uIU/ml (0.358-3.74); VLDL CHOLESTEROL 14.4 MG/DL
[2019-03-01] MEDS ORDERED: FUROSEMIDE 40 MG/4 ML VIAL IV ONE (09:03)
[2019-03-01] MEDS: THEOPHYLLINE ER (24 HR) 300 MG CAPSULE PO SCH (09:51)
[2019-03-01] MEDS: TAMSULOSIN 0.4 MG CAPSULE PO SCH ×2 (09:51→22:06)
[2019-03-01] MEDS: ASPIRIN EC 81 MG TABLET PO SCH (09:51)
[2019-03-01] MEDS: COLCHICINE 0.6 MG CAPSULE PO SCH (09:52)
[2019-03-01] MEDS: ALLOPURINOL 100 MG TABLET PO SCH (09:52)
[2019-03-01] MEDS: CARVEDILOL 3.125 MG TABLET PO SCH ×2 (09:52→16:29)
[2019-03-01] MEDS: MAGNESIUM OXIDE 400 MG TABLET PO SCH (09:52)
[2019-03-01] MEDS: ATORVASTATIN 40 MG TABLET PO SCH (09:52)
[2019-03-01] MEDS: ENOXAPARIN 40 MG/0.4 ML SYRINGE SUBCUT SCH (09:52)
[2019-03-01] MEDS: PANTOPRAZOLE 40 MG TABLET PO SCH (09:52)
[2019-03-01] MEDS: FLUTICASONE 50 MCG NASAL SPRAY 16 GM BOTTLE BOTH NARES SCH (09:53)
[2019-03-02] MEDS: ALBUTEROL/IPRATROPIUM 3 ML NEB RESP TX SCH ×6 (00:40→19:53)
[2019-03-02] MEDS: LEVOFLOXACIN INJ 750 MG in PREMIX 1 EACH IV SCH (07:17)
[2019-03-02] MEDS: ASPIRIN EC 81 MG TABLET PO SCH (08:46)
[2019-03-02] MEDS: COLCHICINE 0.6 MG CAPSULE PO SCH ×2 (08:46→20:44)
[2019-03-02] MEDS: ATORVASTATIN 40 MG TABLET PO SCH (08:46)
[2019-03-02] MEDS: MAGNESIUM OXIDE 400 MG TABLET PO SCH (08:46)
[2019-03-02] MEDS: TAMSULOSIN 0.4 MG CAPSULE PO SCH ×2 (08:46→20:44)
[2019-03-02] MEDS: CARVEDILOL 3.125 MG TABLET PO SCH ×2 (08:46→16:28)
[2019-03-02] MEDS: FLUTICASONE 50 MCG NASAL SPRAY 16 GM BOTTLE BOTH NARES SCH (08:47)
[2019-03-02] MEDS: PANTOPRAZOLE 40 MG TABLET PO SCH (08:47)
[2019-03-02] MEDS: THEOPHYLLINE ER (24 HR) 300 MG CAPSULE PO SCH (08:47)
[2019-03-02] MEDS: ENOXAPARIN 40 MG/0.4 ML SYRINGE SUBCUT SCH (08:47)
[2019-03-02] MEDS: ALLOPURINOL 100 MG TABLET PO SCH (08:47)
[2019-03-02] MEDS: predniSONE 20 MG TABLET PO SCH (11:18)
[2019-03-02 12:45] LABS: Basophils % 0.4 % (0.0-0.8); Eosinophils # 0.1 10*3/uL (0.0-0.87); Hematocrit 40.7 VOL% (42.0-52.0); Hemoglobin 13.1 GM/DL (14.0-18.0); Immature Granulocytes % 0.3 %; Immature Granulocytes Absolute 0.03 #; Lymphocytes # 0.8 10*3/uL (1.4-4.0); Lymphocytes % 7.4 % (21.2-54.2); Mean Corpuscular HGB Conc 32.2 GM/DL (32-36); Mean Corpuscular Volume 87.9 FL (87-102); Mean Platelet Volume 10.7 FL (9.6-12.0); Neutrophils % 80.9 % (38.7-73.9); Platelet Count 218 T/CUMM (130-400); Red Blood Count 4.63 MC/CUMM (3.8-5.5); Red Cell Distribution Width 14.9 % (9.3-17.3); White Blood Count 10.2 T/CUMM (4-12)
[2019-03-03] MEDS: ALBUTEROL/IPRATROPIUM 3 ML NEB RESP TX SCH ×7 (00:04→23:52)
[2019-03-03 06:28] LABS: Calcium 9.6 MG/DL (8.5-10.1); Osmolality,Calculated 280.5 MOS/KG (273-304)
[2019-03-03] MEDS: LEVOFLOXACIN INJ 750 MG in PREMIX 1 EACH IV SCH (08:24)
[2019-03-03] MEDS: ENOXAPARIN 40 MG/0.4 ML SYRINGE SUBCUT SCH (09:08)
[2019-03-03] MEDS: COLCHICINE 0.6 MG CAPSULE PO SCH ×2 (09:09→21:11)
[2019-03-03] MEDS: TAMSULOSIN 0.4 MG CAPSULE PO SCH ×2 (09:09→21:11)
[2019-03-03] MEDS: ATORVASTATIN 40 MG TABLET PO SCH (09:09)
[2019-03-03] MEDS: THEOPHYLLINE ER (24 HR) 300 MG CAPSULE PO SCH (09:09)
[2019-03-03] MEDS: ASPIRIN EC 81 MG TABLET PO SCH (09:09)
[2019-03-03] MEDS: PANTOPRAZOLE 40 MG TABLET PO SCH (09:09)
[2019-03-03] MEDS: CARVEDILOL 3.125 MG TABLET PO SCH ×2 (09:09→17:15)
[2019-03-03] MEDS: ALLOPURINOL 100 MG TABLET PO SCH ×2 (09:09→10:12)
[2019-03-03] MEDS: MAGNESIUM OXIDE 400 MG TABLET PO SCH (09:10)
[2019-03-03] MEDS: predniSONE 20 MG TABLET PO SCH (09:12)
[2019-03-03] MEDS: FLUTICASONE 50 MCG NASAL SPRAY 16 GM BOTTLE BOTH NARES SCH (09:16)
[2019-03-03] MEDS: POTASSIUM CHLORIDE 20 MEQ TABLET PO SCH (09:19)
[2019-03-03] MEDS: POLYETHYLENE GLYCOL POWDER 17 GM PACK PO SCH ×3 (09:35→17:41)
[2019-03-03] MEDS ORDERED: MINERAL OIL 30 ML UDCUP PO ONE (14:26)
[2019-03-03] MEDS: DOCUSATE SODIUM 100 MG CAPSULE PO SCH ×2 (14:48→21:11)
[2019-03-03] MEDS ORDERED: ALLOPURINOL 300 MG TABLET PO SCH (16:16)
[2019-03-03] MEDS: LACTULOSE 20 GM/30 ML UDCUP PO SCH (17:41)
[2019-03-03] MEDS ORDERED: SENNA 8.6 MG TABLET PO SCH (21:00)
[2019-03-04] MEDS: POLYETHYLENE GLYCOL POWDER 17 GM PACK PO SCH ×5 (00:45→10:29)
[2019-03-04] MEDS: LACTULOSE 20 GM/30 ML UDCUP PO SCH ×2 (00:46→05:33)
[2019-03-04] MEDS: ALBUTEROL/IPRATROPIUM 3 ML NEB RESP TX SCH ×2 (03:10→07:08)
[2019-03-04 05:20] LABS: Osmolality,Calculated 285.1 MOS/KG (273-304)
[2019-03-04] MEDS: LEVOFLOXACIN INJ 750 MG in PREMIX 1 EACH IV SCH (05:34)
[2019-03-04] MEDS: ENOXAPARIN 40 MG/0.4 ML SYRINGE SUBCUT SCH (08:09)
[2019-03-04] MEDS: THEOPHYLLINE ER (24 HR) 300 MG CAPSULE PO SCH (08:09)
[2019-03-04] MEDS: predniSONE 20 MG TABLET PO SCH (08:09)
[2019-03-04] MEDS: POTASSIUM CHLORIDE 20 MEQ TABLET PO SCH (08:09)
[2019-03-04] MEDS: COLCHICINE 0.6 MG CAPSULE PO SCH (08:10)
[2019-03-04] MEDS: ASPIRIN EC 81 MG TABLET PO SCH (08:10)
[2019-03-04] MEDS: CARVEDILOL 3.125 MG TABLET PO SCH (08:10)
[2019-03-04] MEDS: PANTOPRAZOLE 40 MG TABLET PO SCH (08:10)
[2019-03-04] MEDS: DOCUSATE SODIUM 100 MG CAPSULE PO SCH (08:10)
[2019-03-04] MEDS: ATORVASTATIN 40 MG TABLET PO SCH (08:10)
[2019-03-04] MEDS: MAGNESIUM OXIDE 400 MG TABLET PO SCH (08:10)
[2019-03-04] MEDS: TAMSULOSIN 0.4 MG CAPSULE PO SCH (08:10)
[2019-03-04] MEDS: FLUTICASONE 50 MCG NASAL SPRAY 16 GM BOTTLE BOTH NARES SCH (08:11)
[2019-03-04 08:14] VITALS: BP 129/75
[2019-03-05] MEDS ORDERED: COLCHICINE 0.6 MG CAPSULE PO SCH (09:00)
== END 2019-03-04 10:58 | disposition home or self-care (01) | DRG 190 ==
LOC: N.ED 22:08 → N.EDINP 22:08 → N.TELES 03-01 03:14
PROVIDERS: ADMIT Hospitalist; ATTEND Hospitalist

== ENCOUNTER 2019-08-28 09:24 | Inpatient (IN) ==
[2019-08-28] MEDS ORDERED: FUROSEMIDE 100 MG/10 ML VIAL IV STA (09:50)
[2019-08-28 10:12] LABS: Basophils # 0.1 10*3/uL (0.0-0.2); Basophils % 0.4 % (0.0-0.8); Eosinophils # 0.1 10*3/uL (0.0-0.87); Eosinophils % 0.7 % (0.00-10.9); Hematocrit 53.8 VOL% (42.0-52.0); Immature Granulocytes % 0.4 %; Immature Granulocytes Absolute 0.07 #; Lymphocytes # 0.9 10*3/uL (1.4-4.0); Lymphocytes % 5.8 % (21.2-54.2); Mean Corpuscular HGB Conc 31.6 GM/DL (32-36); Mean Corpuscular Volume 89.4 FL (87-102); Mean Platelet Volume 10.7 FL (9.6-12.0); Monocytes % 7.6 % (1.7-12.7); Neutrophils % 85.1 % (38.7-73.9); Platelet Count 187 T/CUMM (130-400); Red Blood Count 6.02 MC/CUMM (3.8-5.5); Red Cell Distribution Width 16.1 % (9.3-17.3); White Blood Count 16.1 T/CUMM (4-12)
[2019-08-28 10:32] LABS: Albumin 3.5 G/DL (3.4-5.0); Bilirubin,Total 0.8 MG/DL (0.2-1.0); Calcium 8.7 MG/DL (8.5-10.1); Osmolality,Calculated 284.1 MOS/KG (273-304); Total Protein 7.2 G/DL (6.4-8.3)
[2019-08-28] MEDS ORDERED: cefTRIAXone 1,000 MG in SODIUM CHLORIDE 0.9% 100 ML IV STA (10:50)
[2019-08-28] MEDS ORDERED: AZITHROMYCIN INJ 500 MG in SODIUM CHLORIDE 0.9% 250 ML IV STA (10:50)
[2019-08-28] MEDS ORDERED: ACETAMINOPHEN 325 MG TABLET PO PRN (11:26)
[2019-08-28] MEDS ORDERED: ONDANSETRON 4 MG/2 ML VIAL IV PRN (11:26)
[2019-08-28] MEDS ORDERED: DOCUSATE SODIUM 100 MG CAPSULE PO PRN (11:26)
[2019-08-28] MEDS ORDERED: GLUCAGON 1 MG VIAL IM PRN (11:26)
[2019-08-28] MEDS ORDERED: DEXTROSE 50% 25 GM/50 ML VIAL IV PRN (11:26)
[2019-08-28] MEDS ORDERED: IBUPROFEN 800 MG TABLET PO PRN (11:29)
[2019-08-28] MEDS ORDERED: OXYMETAZOLINE 0.05% NASAL SPRAY 15 ML BOTTLE BOTH NARES PRN (11:29)
[2019-08-28] MEDS ORDERED: COLCHICINE 0.6 MG CAPSULE PO PRN (11:29)
[2019-08-28] MEDS ORDERED: methylPREDNISolone SOD SUC 125 MG/2 ML VIAL IV STA (11:30)
[2019-08-28] MEDS: INSULIN LISPRO 100 UNIT/ML SUBCUT SCH ×3 (14:16→20:17)
[2019-08-28] MEDS: ENOXAPARIN 40 MG/0.4 ML SYRINGE SUBCUT SCH (14:17)
[2019-08-28] MEDS: ALBUTEROL/IPRATROPIUM 3 ML NEB RESP TX SCH ×3 (15:55→22:32)
[2019-08-28] MEDS: FUROSEMIDE 40 MG TABLET PO SCH (16:46)
[2019-08-28] MEDS: carvediloL 3.125 MG TABLET PO SCH (16:46)
[2019-08-28] MEDS ORDERED: BUDESONIDE 0.5 MG/2 ML NEB RESP TX SCH (21:00)
[2019-08-28] MEDS ORDERED: ARFORMOTEROL 15 MCG/2 ML NEB RESP TX SCH (21:00)
[2019-08-28] MEDS: TAMSULOSIN 0.4 MG CAPSULE PO SCH (22:19)
[2019-08-28] MEDS: methylPREDNISolone SOD SUC 40 MG/1 ML VIAL IV SCH (22:20)
[2019-08-29] MEDS: ALBUTEROL/IPRATROPIUM 3 ML NEB RESP TX SCH ×6 (02:36→23:47)
[2019-08-29 04:57] LABS: Basophils % 0.1 % (0.0-0.8); Hematocrit 50.5 VOL% (42.0-52.0); Hemoglobin 15.8 GM/DL (14.0-18.0); Immature Granulocytes % 0.3 %; Immature Granulocytes Absolute 0.03 #; Lymphocytes # 0.6 10*3/uL (1.4-4.0); Lymphocytes % 6.1 % (21.2-54.2); Mean Corpuscular HGB Conc 31.3 GM/DL (32-36); Mean Corpuscular Volume 89.1 FL (87-102); Mean Platelet Volume 10.6 FL (9.6-12.0); Monocytes % 2.4 % (1.7-12.7); Neutrophils % 91.1 % (38.7-73.9); Platelet Count 174 T/CUMM (130-400); Red Blood Count 5.67 MC/CUMM (3.8-5.5); Red Cell Distribution Width 15.7 % (9.3-17.3); White Blood Count 9.6 T/CUMM (4-12)
[2019-08-29 05:21] LABS: Calcium 8.9 MG/DL (8.5-10.1); Osmolality,Calculated 288.3 MOS/KG (273-304)
[2019-08-29 05:33] LABS: Band Neutrophils 3 % (0-10); Hypochromasia 1+; Lymphocytes 3 % (20-55); Microcytosis Slight; Segmented Neutrophils 92 % (50-85); Total Cells Counted 100
[2019-08-29 05:34] LABS: Platelet Estimate Adequate
[2019-08-29] MEDS: methylPREDNISolone SOD SUC 40 MG/1 ML VIAL IV SCH ×2 (06:57→17:34)
[2019-08-29] MEDS: ARFORMOTEROL 15 MCG/2 ML NEB RESP TX SCH ×2 (08:00→20:25)
[2019-08-29] MEDS: BUDESONIDE 0.5 MG/2 ML NEB RESP TX SCH ×2 (08:01→20:25)
[2019-08-29] MEDS: INSULIN LISPRO 100 UNIT/ML SUBCUT SCH ×4 (09:41→23:02)
[2019-08-29] MEDS: LOSARTAN 25 MG TABLET PO SCH (09:45)
[2019-08-29] MEDS: sitaGLIPtin 100 MG TABLET PO SCH (09:45)
[2019-08-29] MEDS: carvediloL 3.125 MG TABLET PO SCH ×2 (09:45→17:34)
[2019-08-29] MEDS: PANTOPRAZOLE 40 MG TABLET PO SCH (09:45)
[2019-08-29] MEDS: POTASSIUM CHLORIDE 20 MEQ TABLET PO SCH (09:45)
[2019-08-29] MEDS: ASPIRIN EC 81 MG TABLET PO SCH (09:45)
[2019-08-29] MEDS: TAMSULOSIN 0.4 MG CAPSULE PO SCH ×2 (09:45→20:39)
[2019-08-29] MEDS: AZITHROMYCIN INJ 500 MG in SODIUM CHLORIDE 0.9% 250 ML IV SCH (09:45)
[2019-08-29] MEDS: cefTRIAXone 1,000 MG in SYRINGE 1 EACH IV SCH (09:45)
[2019-08-29] MEDS: ALLOPURINOL 300 MG TABLET PO SCH (09:45)
[2019-08-29] MEDS: FUROSEMIDE 40 MG TABLET PO SCH ×2 (09:45→15:22)
[2019-08-29] MEDS: THEOPHYLLINE ER (24 HR) 300 MG CAPSULE PO SCH (09:45)
[2019-08-29] MEDS: FLUTICASONE 50 MCG NASAL SPRAY 16 GM BOTTLE BOTH NARES SCH (09:52)
[2019-08-29] MEDS: ENOXAPARIN 40 MG/0.4 ML SYRINGE SUBCUT SCH (12:45)
[2019-08-30] MEDS: ALBUTEROL/IPRATROPIUM 3 ML NEB RESP TX SCH ×2 (03:30→07:45)
[2019-08-30] MEDS: methylPREDNISolone SOD SUC 40 MG/1 ML VIAL IV SCH (06:04)
[2019-08-30] MEDS: ARFORMOTEROL 15 MCG/2 ML NEB RESP TX SCH (07:45)
[2019-08-30] MEDS: BUDESONIDE 0.5 MG/2 ML NEB RESP TX SCH (07:45)
[2019-08-30 08:31] LABS: Basophils % 0.1 % (0.0-0.8); Hematocrit 49.1 VOL% (42.0-52.0); Hemoglobin 15.8 GM/DL (14.0-18.0); Immature Granulocytes % 0.6 %; Immature Granulocytes Absolute 0.11 #; Lymphocytes # 0.7 10*3/uL (1.4-4.0); Lymphocytes % 3.8 % (21.2-54.2); Mean Corpuscular HGB Conc 32.2 GM/DL (32-36); Mean Corpuscular Volume 87.8 FL (87-102); Mean Platelet Volume 10.9 FL (9.6-12.0); Monocytes % 4.8 % (1.7-12.7); NRBC # 0.02 10*3/uL; Neutrophils % 90.7 % (38.7-73.9); Platelet Count 207 T/CUMM (130-400); Red Blood Count 5.59 MC/CUMM (3.8-5.5); Red Cell Distribution Width 15.8 % (9.3-17.3)
[2019-08-30 08:43] LABS: Calcium 9.3 MG/DL (8.5-10.1); Osmolality,Calculated 293.8 MOS/KG (273-304)
[2019-08-30] MEDS: POTASSIUM CHLORIDE 20 MEQ TABLET PO SCH (08:54)
[2019-08-30] MEDS: sitaGLIPtin 100 MG TABLET PO SCH (08:54)
[2019-08-30] MEDS: FUROSEMIDE 40 MG TABLET PO SCH (08:54)
[2019-08-30] MEDS: TAMSULOSIN 0.4 MG CAPSULE PO SCH (08:54)
[2019-08-30] MEDS: ALLOPURINOL 300 MG TABLET PO SCH (08:54)
[2019-08-30] MEDS: THEOPHYLLINE ER (24 HR) 300 MG CAPSULE PO SCH (08:54)
[2019-08-30] MEDS: PANTOPRAZOLE 40 MG TABLET PO SCH (08:54)
[2019-08-30] MEDS: carvediloL 3.125 MG TABLET PO SCH (08:54)
[2019-08-30] MEDS: cefTRIAXone 1,000 MG in SYRINGE 1 EACH IV SCH (08:54)
[2019-08-30] MEDS: INSULIN LISPRO 100 UNIT/ML SUBCUT SCH (08:54)
[2019-08-30] MEDS: FLUTICASONE 50 MCG NASAL SPRAY 16 GM BOTTLE BOTH NARES SCH (08:55)
[2019-08-30] MEDS: ASPIRIN EC 81 MG TABLET PO SCH (08:55)
[2019-08-30] MEDS: AZITHROMYCIN INJ 500 MG in SODIUM CHLORIDE 0.9% 250 ML IV SCH (08:55)
[2019-08-30] MEDS: LOSARTAN 25 MG TABLET PO SCH (08:55)
[2019-08-30 08:57] LABS: Band Neutrophils 1 % (0-10); Lymphocytes 2 % (20-55); Platelet Estimate Normal; Polychromasia Slight; Segmented Neutrophils 95 % (50-85); Total Cells Counted 100
[2019-08-30 10:56] VITALS: BP 136/83
== END 2019-08-30 11:48 | disposition home or self-care (01) | DRG 193 ==
LOC: N.ED 09:24 → N.EDINP 11:26 → N.5E 11:43
PROVIDERS: ADMIT Internal Medicine; ATTEND Internal Medicine

== ENCOUNTER 2019-09-20 13:38 | Inpatient (IN) ==
[2019-09-20] MEDS ORDERED: ONDANSETRON 4 MG/2 ML VIAL IV STA (13:59)
[2019-09-20] MEDS ORDERED: cefTRIAXone 1,000 MG in SODIUM CHLORIDE 0.9% 100 ML IV STA (13:59)
[2019-09-20] MEDS ORDERED: ALBUTEROL/IPRATROPIUM 3 ML NEB RESP TX STA (13:59)
[2019-09-20] MEDS ORDERED: AZITHROMYCIN INJ 500 MG in SODIUM CHLORIDE 0.9% 250 ML IV STA (13:59)
[2019-09-20] MEDS ORDERED: ALBUTEROL 2.5 MG/3 ML NEB RESP TX SCH (14:00)
[2019-09-20] MEDS ORDERED: methylPREDNISolone SOD SUC 125 MG/2 ML VIAL IV STA (14:01)
[2019-09-20 14:22] LABS: Basophils % 0.3 % (0.0-0.8); Eosinophils # 0.2 10*3/uL (0.0-0.87); Eosinophils % 2.2 % (0.00-10.9); Hematocrit 52.2 VOL% (42.0-52.0); Hemoglobin 16.6 GM/DL (14.0-18.0); Immature Granulocytes % 0.2 %; Immature Granulocytes Absolute 0.02 #; Lymphocytes # 0.9 10*3/uL (1.4-4.0); Lymphocytes % 10.3 % (21.2-54.2); Mean Corpuscular HGB Conc 31.8 GM/DL (32-36); Mean Corpuscular Volume 88.5 FL (87-102); Mean Platelet Volume 10.5 FL (9.6-12.0); Monocytes % 7.1 % (1.7-12.7); Neutrophils % 79.9 % (38.7-73.9); Platelet Count 130 T/CUMM (130-400); Red Cell Distribution Width 17.8 % (9.3-17.3); White Blood Count 8.7 T/CUMM (4-12)
[2019-09-20 14:30] LABS: INR 0.9; PT Patient Result 10.1 SECS (9.6-12.2); Partial Thromboplastin Time 28.9 SECS (20.8-36.0)
[2019-09-20 14:32] LABS: ABG Base Excess -2.1 MMOL/L (-2.5-2.5); ABG HCO3 21.1 MMOL/L (20-26); ABG Oxygen Saturation 89.3 % (95-100); ABG PCO2 32.4 MM HG (35-48); ABG PH 7.431 (7.35-7.45); ABG PO2 59.4 MM HG (80-95); ABG TCO2 22.1 MMOL/L (23-27); Allen Test Positive
[2019-09-20 14:32] LABS: Troponin I < 0.015 NG/ML (0.00-0.045)
[2019-09-20 14:39] LABS: Albumin 3.1 G/DL (3.4-5.0); Bilirubin,Total 0.7 MG/DL (0.2-1.0); Calcium 8.7 MG/DL (8.5-10.1); Osmolality,Calculated 283.3 MOS/KG (273-304); Total Protein 6.9 G/DL (6.4-8.3)
[2019-09-20] MEDS ORDERED: cefTRIAXone 1,000 MG VIAL ONE (15:19)
[2019-09-20 15:34] LABS: Apearance,Urine CLEAR (Clear); Bacteria,Urine Occasional /HPF (Few); Bilirubin,Urine Negative (Negative); Blood, Urine Small mg/dL (Negative); Glucose,Urine (UA) Negative (Negative); Ketones,Urine Negative (Negative); Mucus,Urine Occasional /LPF (Occasional); Nitrite,Urine Negative (Negative); Protein,Urine Negative; RBC,Urine 1 /HPF (0-4); Squamous Epithelial Cell,Urine Occasional /HPF (0-10); Urine Color Yellow (Yellow); Urine Specific Gravity 1.013 (1.001-1.035); WBC,Urine 6 /HPF (0-6)
[2019-09-20] MEDS ORDERED: ACETAMINOPHEN 325 MG TABLET PO PRN (15:50)
[2019-09-20] MEDS ORDERED: DOCUSATE SODIUM 100 MG CAPSULE PO PRN (15:50)
[2019-09-20] MEDS ORDERED: LACTULOSE 20 GM/30 ML UDCUP PO PRN (15:50)
[2019-09-20] MEDS ORDERED: ONDANSETRON 4 MG/2 ML VIAL IV PRN (15:50)
[2019-09-20] MEDS ORDERED: MORPHINE 4 MG/1 ML VIAL IV PRN (15:50)
[2019-09-20 15:53] LABS: Barbiturates Screen,Urine Negative (Negative); Benzodiazepines Screen,Urine Negative (Negative); Cannabinoid Screen,Urine Negative (Negative); Opiate Screen,Urine Negative (Negative); Phencyclidine Screen,Urine Negative (Negative)
[2019-09-20] MEDS ORDERED: DEXTROSE 10% 25 GM/250 ML BAG IV PRN (16:00)
[2019-09-20] MEDS ORDERED: GLUCAGON 1 MG VIAL IM PRN (16:00)
[2019-09-20] MEDS: BUDESONIDE 0.5 MG/2 ML NEB RESP TX SCH (20:09)
[2019-09-20] MEDS: ALBUTEROL/IPRATROPIUM 3 ML NEB RESP TX SCH (20:09)
[2019-09-20] MEDS: methylPREDNISolone SOD SUC 40 MG/1 ML VIAL IV SCH (20:32)
[2019-09-20] MEDS: INSULIN LISPRO 100 UNIT/ML SUBCUT SCH ×2 (22:48→23:04)
[2019-09-20] MEDS: CEFEPIME 1,000 MG in SODIUM CHLORIDE 0.9% 100 ML IV SCH ×3 (22:50→23:15)
[2019-09-20] MEDS: ALUMINUM/MAGNES/SIMETH MAX STR 30 ML UDCUP PO PRN (22:55)
[2019-09-20] MEDS: ENOXAPARIN 40 MG/0.4 ML SYRINGE SUBCUT SCH (22:55)
[2019-09-20] MEDS: CALCIUM CARBONATE CHEW 500 MG TABLET PO PRN (22:55)
[2019-09-20] MEDS: BENZONATATE 100 MG CAPSULE PO SCH (22:55)
[2019-09-20] MEDS: carvediloL 3.125 MG TABLET PO SCH (22:56)
[2019-09-20] MEDS: TAMSULOSIN 0.4 MG CAPSULE PO SCH (22:56)
[2019-09-20] MEDS: FUROSEMIDE 40 MG TABLET PO SCH (22:56)
[2019-09-21] MEDS: LEVOFLOXACIN INJ 750 MG in PREMIX 1 EACH IV SCH ×2 (00:37→16:22)
[2019-09-21] MEDS: methylPREDNISolone SOD SUC 40 MG/1 ML VIAL IV SCH ×3 (00:44→16:39)
[2019-09-21] MEDS: ALBUTEROL/IPRATROPIUM 3 ML NEB RESP TX SCH ×4 (01:00→19:55)
[2019-09-21] MEDS: CEFEPIME 1,000 MG in SODIUM CHLORIDE 0.9% 100 ML IV SCH ×4 (05:03→23:52)
[2019-09-21 05:29] LABS: Hematocrit 50.4 VOL% (42.0-52.0); Immature Granulocytes % 0.6 %; Immature Granulocytes Absolute 0.04 #; Lymphocytes # 0.4 10*3/uL (1.4-4.0); Lymphocytes % 6.5 % (21.2-54.2); Mean Corpuscular HGB Conc 31.7 GM/DL (32-36); Mean Platelet Volume 11.7 FL (9.6-12.0); Monocytes % 2.3 % (1.7-12.7); Neutrophils % 90.6 % (38.7-73.9); Platelet Count 147 T/CUMM (130-400); Red Blood Count 5.66 MC/CUMM (3.8-5.5); Red Cell Distribution Width 16.7 % (9.3-17.3); White Blood Count 6.5 T/CUMM (4-12)
[2019-09-21 05:50] LABS: Band Neutrophils 2 % (0-10); Hypochromasia 1+; Lymphocytes 10 % (20-55); Microcytosis 1+; Nucleated Red Blood Cells 1 (0-5); Segmented Neutrophils 85 % (50-85); Total Cells Counted 100
[2019-09-21 05:51] LABS: Platelet Estimate Adequate
[2019-09-21 06:00] LABS: Albumin 2.8 G/DL (3.4-5.0); Bilirubin,Total 0.6 MG/DL (0.2-1.0); Calcium 9.4 MG/DL (8.5-10.1); Osmolality,Calculated 284.5 MOS/KG (273-304); Thyroid Stimulating Hormone 0.69 uIU/ml (0.358-3.74); Total Protein 7.1 G/DL (6.4-8.3)
[2019-09-21] MEDS: BUDESONIDE 0.5 MG/2 ML NEB RESP TX SCH ×2 (07:29→19:55)
[2019-09-21] MEDS: INSULIN LISPRO 100 UNIT/ML SUBCUT SCH ×4 (08:52→21:03)
[2019-09-21] MEDS: POTASSIUM CHLORIDE 20 MEQ TABLET PO SCH (09:22)
[2019-09-21] MEDS: allopurinoL 300 MG TABLET PO SCH (09:23)
[2019-09-21] MEDS: THEOPHYLLINE ER (24 HR) 300 MG CAPSULE PO SCH (09:23)
[2019-09-21] MEDS: BENZONATATE 100 MG CAPSULE PO SCH ×3 (09:23→21:23)
[2019-09-21] MEDS: TAMSULOSIN 0.4 MG CAPSULE PO SCH ×2 (09:23→21:23)
[2019-09-21] MEDS: FUROSEMIDE 40 MG TABLET PO SCH ×2 (09:23→15:26)
[2019-09-21] MEDS: carvediloL 3.125 MG TABLET PO SCH ×2 (09:23→16:22)
[2019-09-21] MEDS: LOSARTAN 25 MG TABLET PO SCH (09:24)
[2019-09-21] MEDS: PANTOPRAZOLE 40 MG TABLET PO SCH (09:35)
[2019-09-21] MEDS ORDERED: cefTRIAXone 1,000 MG in SYRINGE 1 EACH IV SCH (15:00)
[2019-09-21] MEDS ORDERED: AZITHROMYCIN INJ 500 MG in SODIUM CHLORIDE 0.9% 250 ML IV SCH (15:00)
[2019-09-21] MEDS: ENOXAPARIN 40 MG/0.4 ML SYRINGE SUBCUT SCH (16:23)
[2019-09-21] MEDS: ALUMINUM/MAGNES/SIMETH MAX STR 30 ML UDCUP PO PRN (21:23)
[2019-09-21] MEDS: CALCIUM CARBONATE CHEW 500 MG TABLET PO PRN (21:23)
[2019-09-22] MEDS: methylPREDNISolone SOD SUC 40 MG/1 ML VIAL IV SCH ×2 (01:09→09:01)
[2019-09-22] MEDS: ALBUTEROL/IPRATROPIUM 3 ML NEB RESP TX SCH ×4 (01:15→19:24)
[2019-09-22] MEDS: CEFEPIME 1,000 MG in SODIUM CHLORIDE 0.9% 100 ML IV SCH ×4 (04:56→23:15)
[2019-09-22 06:44] LABS: Basophils % 0.1 % (0.0-0.8); Hematocrit 49.5 VOL% (42.0-52.0); Hemoglobin 15.6 GM/DL (14.0-18.0); Immature Granulocytes % 0.6 %; Immature Granulocytes Absolute 0.07 #; Lymphocytes # 0.5 10*3/uL (1.4-4.0); Lymphocytes % 4.2 % (21.2-54.2); Mean Corpuscular HGB Conc 31.5 GM/DL (32-36); Mean Corpuscular Volume 89.5 FL (87-102); Mean Platelet Volume 11.7 FL (9.6-12.0); Monocytes % 3.6 % (1.7-12.7); NRBC # 0.02 10*3/uL; Neutrophils % 91.5 % (38.7-73.9); Platelet Count 167 T/CUMM (130-400); Red Blood Count 5.53 MC/CUMM (3.8-5.5); Red Cell Distribution Width 16.8 % (9.3-17.3); White Blood Count 12.3 T/CUMM (4-12)
[2019-09-22 07:13] LABS: Albumin 2.9 G/DL (3.4-5.0); Bilirubin,Total 0.5 MG/DL (0.2-1.0); Calcium 9.5 MG/DL (8.5-10.1); Giant Platelets Few; Hypochromasia 1+; Lymphocytes 2 % (20-55); Microcytosis 1+; Osmolality,Calculated 289.3 MOS/KG (273-304); Platelet Estimate Adequate; Polychromasia Slight; Segmented Neutrophils 93 % (50-85); Total Cells Counted 100
[2019-09-22] MEDS: BUDESONIDE 0.5 MG/2 ML NEB RESP TX SCH ×2 (07:25→19:24)
[2019-09-22] MEDS: INSULIN LISPRO 100 UNIT/ML SUBCUT SCH ×4 (08:59→20:44)
[2019-09-22] MEDS: BENZONATATE 100 MG CAPSULE PO SCH ×3 (09:00→20:43)
[2019-09-22] MEDS: allopurinoL 300 MG TABLET PO SCH (09:00)
[2019-09-22] MEDS: LOSARTAN 25 MG TABLET PO SCH (09:01)
[2019-09-22] MEDS: THEOPHYLLINE ER (24 HR) 300 MG CAPSULE PO SCH (09:01)
[2019-09-22] MEDS: TAMSULOSIN 0.4 MG CAPSULE PO SCH ×2 (09:02→20:43)
[2019-09-22] MEDS: carvediloL 3.125 MG TABLET PO SCH ×2 (09:02→16:45)
[2019-09-22] MEDS: FUROSEMIDE 40 MG TABLET PO SCH ×2 (09:02→16:45)
[2019-09-22] MEDS: PANTOPRAZOLE 40 MG TABLET PO SCH ×2 (09:02→20:44)
[2019-09-22] MEDS: POTASSIUM CHLORIDE 20 MEQ TABLET PO SCH (09:02)
[2019-09-22] MEDS ORDERED: AZITHROMYCIN 250 MG TABLET PO SCH (15:00)
[2019-09-22] MEDS: ENOXAPARIN 40 MG/0.4 ML SYRINGE SUBCUT SCH (16:46)
[2019-09-22] MEDS: LEVOFLOXACIN INJ 750 MG in PREMIX 1 EACH IV SCH (16:47)
[2019-09-22] MEDS: CALCIUM CARBONATE CHEW 500 MG TABLET PO PRN (18:43)
[2019-09-22] MEDS: ALUMINUM/MAGNES/SIMETH MAX STR 30 ML UDCUP PO PRN (18:43)
[2019-09-23] MEDS: ALBUTEROL/IPRATROPIUM 3 ML NEB RESP TX SCH ×2 (00:13→07:41)
[2019-09-23] MEDS: CEFEPIME 1,000 MG in SODIUM CHLORIDE 0.9% 100 ML IV SCH ×2 (04:30→12:11)
[2019-09-23 06:30] LABS: Basophils % 0.2 % (0.0-0.8); Eosinophils # 0.1 10*3/uL (0.0-0.87); Eosinophils % 0.5 % (0.00-10.9); Hemoglobin 15.7 GM/DL (14.0-18.0); Immature Granulocytes % 0.5 %; Immature Granulocytes Absolute 0.05 #; Lymphocytes # 1.6 10*3/uL (1.4-4.0); Lymphocytes % 15.5 % (21.2-54.2); Mean Corpuscular Volume 89.6 FL (87-102); Monocytes % 7.3 % (1.7-12.7); NRBC # 0.02 10*3/uL; Platelet Count 158 T/CUMM (130-400); Red Blood Count 5.47 MC/CUMM (3.8-5.5); Red Cell Distribution Width 16.6 % (9.3-17.3); White Blood Count 10.5 T/CUMM (4-12)
[2019-09-23 06:53] LABS: Albumin 2.7 G/DL (3.4-5.0); Bilirubin,Total 0.9 MG/DL (0.2-1.0); Calcium 9.3 MG/DL (8.5-10.1); Osmolality,Calculated 287.3 MOS/KG (273-304); Total Protein 6.5 G/DL (6.4-8.3)
[2019-09-23] MEDS: BUDESONIDE 0.5 MG/2 ML NEB RESP TX SCH (07:41)
[2019-09-23] MEDS ORDERED: predniSONE 20 MG TABLET PO SCH (09:00)
[2019-09-23] MEDS: INSULIN LISPRO 100 UNIT/ML SUBCUT SCH (09:07)
[2019-09-23] MEDS: TAMSULOSIN 0.4 MG CAPSULE PO SCH (09:08)
[2019-09-23] MEDS: FUROSEMIDE 40 MG TABLET PO SCH (09:08)
[2019-09-23] MEDS: PANTOPRAZOLE 40 MG TABLET PO SCH (09:08)
[2019-09-23] MEDS: carvediloL 3.125 MG TABLET PO SCH (09:08)
[2019-09-23] MEDS: POTASSIUM CHLORIDE 20 MEQ TABLET PO SCH (09:08)
[2019-09-23] MEDS: allopurinoL 300 MG TABLET PO SCH (09:08)
[2019-09-23] MEDS: BENZONATATE 100 MG CAPSULE PO SCH (09:08)
[2019-09-23] MEDS: THEOPHYLLINE ER (24 HR) 300 MG CAPSULE PO SCH (09:08)
[2019-09-23] MEDS: LOSARTAN 25 MG TABLET PO SCH (09:08)
[2019-09-23 10:22] VITALS: BP 125/83
== END 2019-09-23 12:18 | disposition home or self-care (01) | DRG 178 ==
LOC: N.ED 13:38 → N.EDINP 15:50 → SUATTDRO 15:50 → N.5E 16:58
PROVIDERS: ADMIT Internal Medicine; ATTEND Internal Medicine Nephrology

== ENCOUNTER 2020-01-19 14:52 | Inpatient (IN) ==
[2020-01-19] MEDS ORDERED: methylPREDNISolone SOD SUC 125 MG/2 ML VIAL IV STA (15:42)
[2020-01-19] MEDS ORDERED: PIPERACILLIN/TAZOBACTAM 3,375 MG in SODIUM CHLORIDE 0.9% 100 ML IV STA (15:49)
[2020-01-19 15:50] LABS: Basophils # 0.1 10*3/uL (0.0-0.2); Basophils % 0.4 % (0.0-0.8); Eosinophils # 0.1 10*3/uL (0.0-0.87); Eosinophils % 0.8 % (0.00-10.9); Hematocrit 56.6 VOL% (42.0-52.0); Hemoglobin 18.2 GM/DL (14.0-18.0); Immature Granulocytes % 0.4 %; Immature Granulocytes Absolute 0.06 #; Lymphocytes % 6.7 % (21.2-54.2); Mean Corpuscular HGB Conc 32.2 GM/DL (32-36); Mean Corpuscular Volume 92.3 FL (87-102); Mean Platelet Volume 11.1 FL (9.6-12.0); Monocytes % 8.2 % (1.7-12.7); NRBC # 0.02 10*3/uL; Neutrophils % 83.5 % (38.7-73.9); Platelet Count 194 T/CUMM (130-400); Red Blood Count 6.13 MC/CUMM (3.8-5.5); Red Cell Distribution Width 15.5 % (9.3-17.3); White Blood Count 14.1 T/CUMM (4-12)
[2020-01-19] MEDS: ALBUTEROL 2.5 MG/3 ML NEB RESP TX SCH ×3 (15:55→16:28)
[2020-01-19 16:00] LABS: Albumin 3.7 G/DL (3.4-5.0); Bilirubin,Total 0.9 MG/DL (0.2-1.0); Calcium 9.6 MG/DL (8.5-10.1); Osmolality,Calculated 270.1 MOS/KG (273-304); Total Protein 8.4 G/DL (6.4-8.3)
[2020-01-19 16:07] LABS: INR 1.1; PT Patient Result 11.4 SECS (9.8-11.9); Partial Thromboplastin Time 30.5 SECS (23.9-33.8)
[2020-01-19 16:07] LABS: ABG Base Excess -3.2 MMOL/L (-2.5-2.5); ABG HCO3 19.8 MMOL/L (20-26); ABG Oxygen Saturation 89.5 % (95-100); ABG PCO2 31.3 MM HG (35-48); ABG PO2 58.6 MM HG (80-95); ABG TCO2 20.8 MMOL/L (23-27)
[2020-01-19 17:27] LABS: Barbiturates Screen,Urine Negative (Negative); Benzodiazepines Screen,Urine Negative (Negative); Cannabinoid Screen,Urine Negative (Negative); Opiate Screen,Urine Negative (Negative); Phencyclidine Screen,Urine Negative (Negative)
[2020-01-19] MEDS ORDERED: OXYMETAZOLINE 0.05% NASAL SPRAY 15 ML BOTTLE BOTH NARES PRN (17:59)
[2020-01-19] MEDS ORDERED: NON-FORMULARY MEDICATION (Albuterol Sulfate [Proair Hfa] 2 PUFF) INH PRN (17:59)
[2020-01-19] MEDS ORDERED: COLCHICINE 0.6 MG CAPSULE PO PRN (17:59)
[2020-01-19] MEDS ORDERED: MAGNESIUM SULF RIDER 2 GM in PREMIX 1 EACH IV PRN (18:01)
[2020-01-19] MEDS ORDERED: DEXTROSE 50% 25 GM/50 ML VIAL IV PRN (18:01)
[2020-01-19] MEDS ORDERED: GLUCAGON 1 MG VIAL IM PRN ×2 (18:01→18:03)
[2020-01-19] MEDS ORDERED: POTASSIUM CHLORIDE RIDER 10 MEQ in PREMIX 1 EACH IV PRN (18:01)
[2020-01-19] MEDS ORDERED: MAGNESIUM SULF RIDER 4 GM in PREMIX 1 EACH IV PRN (18:01)
[2020-01-19] MEDS ORDERED: guaiFENesin/DM ER 600-30 MG TABLET PO PRN (18:03)
[2020-01-19] MEDS ORDERED: DEXTROSE 10% 250 ML BAG IV PRN (18:03)
[2020-01-19] MEDS ORDERED: ONDANSETRON 4 MG/2 ML VIAL IV PRN (18:03)
[2020-01-19] MEDS ORDERED: ALUMINUM/MAGNES/SIMETH MAX STR 30 ML UDCUP PO PRN (18:03)
[2020-01-19] MEDS ORDERED: diphenhydrAMINE CAP 25 MG CAPSULE PO PRN (18:03)
[2020-01-19] MEDS ORDERED: ACETAMINOPHEN 325 MG TABLET PO PRN ×2 (18:03)
[2020-01-19] MEDS ORDERED: LACTULOSE 20 GM/30 ML UDCUP PO PRN (18:03)
[2020-01-19] MEDS ORDERED: BISACODYL 5 MG TABLET PO PRN (18:03)
[2020-01-19] MEDS ORDERED: PROMETHAZINE 25 MG TABLET PO PRN (18:03)
[2020-01-19] MEDS ORDERED: hydrALAZINE 20 MG/1 ML VIAL IV PRN (18:03)
[2020-01-19] MEDS ORDERED: ZALEPLON 5 MG CAPSULE PO PRN (18:03)
[2020-01-19] MEDS ORDERED: SIMETHICONE CHEW 125 MG TABLET PO PRN (18:03)
[2020-01-19] MEDS ORDERED: traZODone 50 MG TABLET PO PRN (18:03)
[2020-01-19] MEDS ORDERED: DOCUSATE SODIUM 100 MG CAPSULE PO PRN (18:03)
[2020-01-19] MEDS ORDERED: CALCIUM CARBONATE CHEW 500 MG TABLET PO PRN (18:03)
[2020-01-19] MEDS ORDERED: ENOXAPARIN 40 MG/0.4 ML SYRINGE SUBCUT SCH (18:30)
[2020-01-19] MEDS ORDERED: AZITHROMYCIN INJ 500 MG in SODIUM CHLORIDE 0.9% 250 ML IV SCH (18:30)
[2020-01-19] MEDS ORDERED: AZITHROMYCIN 250 MG TABLET PO ONE (21:00)
[2020-01-19] MEDS: cefTRIAXone 1,000 MG in SYRINGE 1 EACH IV SCH (21:10)
[2020-01-19] MEDS: FUROSEMIDE 40 MG TABLET PO SCH (21:10)
[2020-01-20] MEDS: INSULIN REGULAR 100 UNIT/ML SUBCUT SCH ×5 (00:43→23:03)
[2020-01-20 04:57] LABS: ABG Base Excess -4.4 MMOL/L (-2.5-2.5); ABG HCO3 20.6 MMOL/L (20-26); ABG Oxygen Saturation 92.5 % (95-100); ABG PH 7.351 (7.35-7.45); ABG PO2 70.1 MM HG (80-95); ABG TCO2 21.7 MMOL/L (23-27); Allen Test Positive; Pt O2 Delivery Device BIPAP
[2020-01-20] MEDS: THEOPHYLLINE ER (24 HR) 300 MG CAPSULE PO SCH (08:55)
[2020-01-20] MEDS: FLUTICASONE 50 MCG NASAL SPRAY 16 GM BOTTLE BOTH NARES SCH (08:56)
[2020-01-20] MEDS: POTASSIUM CHLORIDE 20 MEQ TABLET PO SCH (08:56)
[2020-01-20] MEDS: FUROSEMIDE 40 MG TABLET PO SCH ×2 (08:56→16:32)
[2020-01-20] MEDS: LOSARTAN 25 MG TABLET PO SCH (08:56)
[2020-01-20] MEDS: sitaGLIPtin 100 MG TABLET PO SCH (08:56)
[2020-01-20] MEDS: PANTOPRAZOLE 40 MG TABLET PO SCH (08:56)
[2020-01-20] MEDS: allopurinoL 300 MG TABLET PO SCH (08:57)
[2020-01-20] MEDS: carvediloL 3.125 MG TABLET PO SCH ×2 (08:57→17:33)
[2020-01-20] MEDS ORDERED: ASPIRIN EC 81 MG TABLET PO SCH (09:00)
[2020-01-20 11:41] LABS: Risk Ratio 2.36; Thyroid Stimulating Hormone 0.971 uIU/ml (0.358-3.74)
[2020-01-20 12:16] LABS: Bilirubin,Total 1.1 MG/DL (0.2-1.0); Calcium 9.4 MG/DL (8.5-10.1); Osmolality,Calculated 276.1 MOS/KG (273-304); Total Protein 7.4 G/DL (6.4-8.3)
[2020-01-20] MEDS: ENOXAPARIN 30 MG/0.3 ML SYRINGE SUBCUT SCH (16:32)
[2020-01-20 16:55] LABS: Basophils # 0.1 10*3/uL (0.0-0.2); Basophils % 0.3 % (0.0-0.8); Eosinophils % 0.2 % (0.00-10.9); Hematocrit 54.2 VOL% (42.0-52.0); Hemoglobin 17.2 GM/DL (14.0-18.0); Immature Granulocytes % 0.5 %; Lymphocytes # 1.5 10*3/uL (1.4-4.0); Lymphocytes % 7.7 % (21.2-54.2); Mean Corpuscular HGB Conc 31.7 GM/DL (32-36); Mean Corpuscular Volume 92.2 FL (87-102); Mean Platelet Volume 10.7 FL (9.6-12.0); Monocytes % 9.2 % (1.7-12.7); NRBC # 0.03 10*3/uL; Neutrophils % 82.1 % (38.7-73.9); Platelet Count 184 T/CUMM (130-400); Red Blood Count 5.88 MC/CUMM (3.8-5.5); Red Cell Distribution Width 15.2 % (9.3-17.3); White Blood Count 19.2 T/CUMM (4-12)
[2020-01-20 17:54] LABS: Sedimentation Rate-Westergren 10 MM/HR (0-20)
[2020-01-20] MEDS: AZITHROMYCIN 250 MG TABLET PO SCH (22:20)
[2020-01-20] MEDS: cefTRIAXone 1,000 MG in SYRINGE 1 EACH IV SCH (23:04)
[2020-01-21 03:21] LABS: Allen Test Positive; Pt O2 Delivery Device CPAP
[2020-01-21 03:22] LABS: ABG Base Excess -0.4 MMOL/L (-2.5-2.5); ABG HCO3 23.7 MMOL/L (20-26); ABG Oxygen Saturation 85.8 % (95-100); ABG PCO2 41.4 MM HG (35-48); ABG PH 7.383 (7.35-7.45); ABG PO2 54.2 MM HG (80-95); ABG TCO2 20.7 MMOL/L (23-27)
[2020-01-21] MEDS: ENOXAPARIN 30 MG/0.3 ML SYRINGE SUBCUT SCH ×2 (03:29→15:53)
[2020-01-21 04:56] LABS: Basophils # 0.1 10*3/uL (0.0-0.2); Basophils % 0.3 % (0.0-0.8); Eosinophils # 0.1 10*3/uL (0.0-0.87); Eosinophils % 0.7 % (0.00-10.9); Hematocrit 49.8 VOL% (42.0-52.0); Hemoglobin 16.1 GM/DL (14.0-18.0); Immature Granulocytes % 0.4 %; Immature Granulocytes Absolute 0.06 #; Lymphocytes # 1.9 10*3/uL (1.4-4.0); Lymphocytes % 12.1 % (21.2-54.2); Mean Corpuscular HGB Conc 32.3 GM/DL (32-36); Mean Corpuscular Volume 89.7 FL (87-102); Mean Platelet Volume 11.5 FL (9.6-12.0); Monocytes % 9.2 % (1.7-12.7); Neutrophils % 77.3 % (38.7-73.9); Platelet Count 166 T/CUMM (130-400); Red Blood Count 5.55 MC/CUMM (3.8-5.5); Red Cell Distribution Width 14.8 % (9.3-17.3); White Blood Count 15.3 T/CUMM (4-12)
[2020-01-21 05:18] LABS: Albumin 2.9 G/DL (3.4-5.0); Bilirubin,Total 0.9 MG/DL (0.2-1.0); Calcium 9.3 MG/DL (8.5-10.1); Osmolality,Calculated 278.8 MOS/KG (273-304); Total Protein 6.8 G/DL (6.4-8.3)
[2020-01-21] MEDS: allopurinoL 300 MG TABLET PO SCH (08:11)
[2020-01-21] MEDS: THEOPHYLLINE ER (24 HR) 300 MG CAPSULE PO SCH (08:11)
[2020-01-21] MEDS: sitaGLIPtin 100 MG TABLET PO SCH (08:11)
[2020-01-21] MEDS: carvediloL 3.125 MG TABLET PO SCH ×2 (08:11→15:53)
[2020-01-21] MEDS: FUROSEMIDE 40 MG TABLET PO SCH ×2 (08:11→15:53)
[2020-01-21] MEDS: PANTOPRAZOLE 40 MG TABLET PO SCH (08:11)
[2020-01-21] MEDS: FLUTICASONE 50 MCG NASAL SPRAY 16 GM BOTTLE BOTH NARES SCH (08:11)
[2020-01-21] MEDS: POTASSIUM CHLORIDE 20 MEQ TABLET PO SCH (08:11)
[2020-01-21] MEDS: INSULIN REGULAR 100 UNIT/ML SUBCUT SCH ×4 (08:11→21:38)
[2020-01-21] MEDS: LOSARTAN 25 MG TABLET PO SCH (08:45)
[2020-01-21] MEDS: TAMSULOSIN 0.4 MG CAPSULE PO SCH ×2 (10:34→21:13)
[2020-01-21 10:49] LABS: Sedimentation Rate-Westergren 20 MM/HR (0-20)
[2020-01-21] MEDS: cefTRIAXone 1,000 MG in SYRINGE 1 EACH IV SCH (21:13)
[2020-01-21] MEDS: AZITHROMYCIN 250 MG TABLET PO SCH (22:18)
[2020-01-22 04:26] LABS: ABG Base Excess -0.7 MMOL/L (-2.5-2.5); ABG HCO3 24.1 MMOL/L (20-26); ABG Oxygen Saturation 86.6 % (95-100); ABG PCO2 40.3 MM HG (35-48); ABG PH 7.394 (7.35-7.45); ABG TCO2 25.3 MMOL/L (23-27); Allen Test Positive; Pt O2 Delivery Device CPAP
[2020-01-22 07:07] LABS: Albumin 3.1 G/DL (3.4-5.0); Calcium 9.6 MG/DL (8.5-10.1); Total Protein 7.3 G/DL (6.4-8.3)
[2020-01-22] MEDS: INSULIN REGULAR 100 UNIT/ML SUBCUT SCH (08:03)
[2020-01-22 08:04] LABS: Sedimentation Rate-Westergren 16 MM/HR (0-20)
[2020-01-22] MEDS: PANTOPRAZOLE 40 MG TABLET PO SCH (08:04)
[2020-01-22] MEDS: ENOXAPARIN 30 MG/0.3 ML SYRINGE SUBCUT SCH (08:04)
[2020-01-22] MEDS: FLUTICASONE 50 MCG NASAL SPRAY 16 GM BOTTLE BOTH NARES SCH (08:04)
[2020-01-22] MEDS: THEOPHYLLINE ER (24 HR) 300 MG CAPSULE PO SCH (08:04)
[2020-01-22] MEDS: allopurinoL 300 MG TABLET PO SCH (08:04)
[2020-01-22] MEDS: TAMSULOSIN 0.4 MG CAPSULE PO SCH (08:04)
[2020-01-22] MEDS: sitaGLIPtin 100 MG TABLET PO SCH (08:04)
[2020-01-22] MEDS: POTASSIUM CHLORIDE 20 MEQ TABLET PO SCH (08:04)
[2020-01-22] MEDS: FUROSEMIDE 40 MG TABLET PO SCH (08:04)
[2020-01-22] MEDS: carvediloL 3.125 MG TABLET PO SCH (08:04)
[2020-01-22] MEDS: LOSARTAN 25 MG TABLET PO SCH (08:04)
[2020-01-22 08:06] LABS: Basophils % 0.2 % (0.0-0.8); Eosinophils # 0.1 10*3/uL (0.0-0.87); Eosinophils % 0.7 % (0.00-10.9); Hematocrit 50.5 VOL% (42.0-52.0); Hemoglobin 16.4 GM/DL (14.0-18.0); Immature Granulocytes % 0.6 %; Immature Granulocytes Absolute 0.06 #; Lymphocytes # 1.6 10*3/uL (1.4-4.0); Lymphocytes % 16.1 % (21.2-54.2); Mean Corpuscular HGB Conc 32.5 GM/DL (32-36); Mean Corpuscular Volume 89.5 FL (87-102); Monocytes % 10.9 % (1.7-12.7); Neutrophils % 71.5 % (38.7-73.9); Platelet Count 166 T/CUMM (130-400); Red Blood Count 5.64 MC/CUMM (3.8-5.5); Red Cell Distribution Width 14.8 % (9.3-17.3); White Blood Count 10.2 T/CUMM (4-12)
[2020-01-22 12:27] VITALS: BP 114/87
[2020-01-22] MEDS ORDERED: CIPROFLOXACIN 500 MG TABLET PO SCH (21:00)
== END 2020-01-22 13:20 | disposition home or self-care (01) | DRG 194 ==
LOC: N.ED 14:52 → N.EDINP 18:03 → SUATTDRO 18:03 → N.2E 18:14
PROVIDERS: ADMIT Internal Medicine; ATTEND Family Medicine

== ENCOUNTER 2020-09-22 10:39 | Inpatient (IN) ==
[2020-09-22 14:03] LABS: INR 1.1; PT Patient Result 12.2 SECS (9.8-11.9); Partial Thromboplastin Time 35.3 SECS (23.9-33.8)
[2020-09-22 14:16] LABS: Albumin 3.2 G/DL (3.4-5.0); Bilirubin,Total 1.6 MG/DL (0.2-1.0); Calcium 8.8 MG/DL (8.5-10.1); Potassium 4.2 MMOL/L (3.5-5.1)
[2020-09-22] MEDS ORDERED: FUROSEMIDE 40 MG/4 ML VIAL IV STA (15:41)
[2020-09-22 15:42] LABS: Basophils % 0.7 % (0.0-0.8); Eosinophils % 0.2 % (0.00-10.9); Hematocrit 54.1 VOL% (42.0-52.0); Hemoglobin 17.6 GM/DL (14.0-18.0); Immature Granulocytes % 0.2 %; Immature Granulocytes Absolute 0.01 #; Lymphocytes # 0.5 10*3/uL (1.4-4.0); Lymphocytes % 11.4 % (21.2-54.2); Mean Corpuscular HGB Conc 32.5 GM/DL (32-36); Mean Corpuscular Volume 89.7 FL (87-102); Mean Platelet Volume 11.3 FL (9.6-12.0); Monocytes % 17.2 % (1.7-12.7); NRBC # 0.02 10*3/uL; Neutrophils % 70.3 % (38.7-73.9); Platelet Count 136 T/CUMM (130-400); Red Blood Count 6.03 MC/CUMM (3.8-5.5); Red Cell Distribution Width 16.5 % (9.3-17.3); White Blood Count 4.3 T/CUMM (4-12)
[2020-09-22] MEDS ORDERED: FUROSEMIDE 100 MG/10 ML VIAL ONE (15:44)
[2020-09-22 16:14] LABS: Lymphocytes 8 % (20-55); Nucleated Red Blood Cells 2 (0-5); Platelet Estimate Adequate; Segmented Neutrophils 75 % (50-85); Total Cells Counted 100
[2020-09-22] MEDS ORDERED: DEXTROSE 50% 25 GM/50 ML VIAL IV PRN (16:32)
[2020-09-22] MEDS ORDERED: ONDANSETRON 4 MG/2 ML VIAL IV PRN (16:32)
[2020-09-22] MEDS ORDERED: hydrALAZINE 20 MG/1 ML VIAL IV PRN (16:32)
[2020-09-22] MEDS ORDERED: GLUCAGON 1 MG VIAL IM PRN (16:32)
[2020-09-22] MEDS ORDERED: ACETAMINOPHEN 325 MG TABLET PO PRN (16:32)
[2020-09-22] MEDS ORDERED: MAGNESIUM SULF RIDER 4 GM in PREMIX 1 EACH IV PRN (16:35)
[2020-09-22] MEDS ORDERED: MAGNESIUM SULF RIDER 2 GM in PREMIX 1 EACH IV PRN (16:35)
[2020-09-22 17:02] LABS: Thyroid Stimulating Hormone 1.25 uIU/ml (0.358-3.74)
[2020-09-22 17:32] LABS: Bilirubin,Urine Negative (Negative); Blood, Urine Negative (Negative); Glucose,Urine (UA) Negative (Negative); Hyaline Casts,Urine 1 /LPF (0-3); Ketones,Urine Negative (Negative); Mucus,Urine Occasional /LPF (Occasional); Nitrite,Urine Negative (Negative); Protein,Urine Negative; RBC,Urine <1 /HPF (0-4); Urine Appearance CLEAR (Clear); Urine Color Straw (Yellow); Urine Specific Gravity 1.004 (1.001-1.035); Urine Urobilinogen < 2.0 EU/DL (0.2-1.0); WBC,Urine <1 /HPF (0-6)
[2020-09-22] MEDS: carvediloL 3.125 MG TABLET PO SCH (18:51)
[2020-09-22] MEDS: ALBUTEROL 2.5 MG/3 ML NEB RESP TX SCH (19:34)
[2020-09-23] MEDS: ALBUTEROL 2.5 MG/3 ML NEB RESP TX SCH ×3 (00:31→12:45)
[2020-09-23 06:21] LABS: Basophils % 0.6 % (0.0-0.8); Eosinophils % 0.6 % (0.00-10.9); Hemoglobin 16.8 GM/DL (14.0-18.0); Immature Granulocytes % 0.3 %; Immature Granulocytes Absolute 0.01 #; Lymphocytes # 0.7 10*3/uL (1.4-4.0); Lymphocytes % 22.3 % (21.2-54.2); Mean Corpuscular HGB Conc 33.6 GM/DL (32-36); Mean Corpuscular Volume 88.2 FL (87-102); Mean Platelet Volume 11.6 FL (9.6-12.0); Monocytes % 24.5 % (1.7-12.7); NRBC # 0.02 10*3/uL; Neutrophils % 51.7 % (38.7-73.9); Platelet Count 122 T/CUMM (130-400); Red Blood Count 5.67 MC/CUMM (3.8-5.5); Red Cell Distribution Width 16.1 % (9.3-17.3); White Blood Count 3.2 T/CUMM (4-12)
[2020-09-23 06:43] LABS: Calcium 7.9 MG/DL (8.5-10.1); Osmolality,Calculated 282.5 MOS/KG (273-304); Potassium 3.7 MMOL/L (3.5-5.1)
[2020-09-23 06:50] LABS: Eosinophils 1 % (0-10); Lymphocytes 23 % (20-55); Nucleated Red Blood Cells 1 (0-5); Segmented Neutrophils 55 % (50-85); Total Cells Counted 100
[2020-09-23] MEDS: PANTOPRAZOLE 40 MG TABLET PO SCH (08:43)
[2020-09-23] MEDS: ASPIRIN EC 81 MG TABLET PO SCH (08:43)
[2020-09-23] MEDS: LOSARTAN 25 MG TABLET PO SCH (08:43)
[2020-09-23] MEDS: FUROSEMIDE 40 MG/4 ML VIAL IV SCH ×2 (08:44→17:39)
[2020-09-23] MEDS: carvediloL 3.125 MG TABLET PO SCH ×2 (08:44→17:40)
[2020-09-23] MEDS: FLUTICASONE 50 MCG NASAL SPRAY 16 GM BOTTLE BOTH NARES SCH (10:06)
[2020-09-23] MEDS: SILDENAFIL 20 MG TABLET PO SCH ×2 (17:39→20:29)
[2020-09-23] MEDS: methylPREDNISolone SOD SUC 40 MG/1 ML VIAL IV SCH (17:40)
[2020-09-23] MEDS: ALBUTEROL/IPRATROPIUM 3 ML NEB RESP TX SCH (19:25)
[2020-09-24] MEDS: methylPREDNISolone SOD SUC 40 MG/1 ML VIAL IV SCH ×3 (00:30→16:11)
[2020-09-24] MEDS: DOCUSATE SODIUM 100 MG CAPSULE PO PRN ×2 (00:32→08:48)
[2020-09-24] MEDS: ALBUTEROL/IPRATROPIUM 3 ML NEB RESP TX SCH ×4 (00:35→19:47)
[2020-09-24] MEDS: carvediloL 3.125 MG TABLET PO SCH ×2 (08:48→16:11)
[2020-09-24] MEDS: ASPIRIN EC 81 MG TABLET PO SCH (08:48)
[2020-09-24] MEDS: THEOPHYLLINE ER (24 HR) 400 MG CAPSULE PO SCH (08:48)
[2020-09-24] MEDS: PANTOPRAZOLE 40 MG TABLET PO SCH (08:48)
[2020-09-24] MEDS: LOSARTAN 25 MG TABLET PO SCH (08:48)
[2020-09-24] MEDS: SILDENAFIL 20 MG TABLET PO SCH ×3 (08:48→21:02)
[2020-09-24] MEDS: FUROSEMIDE 40 MG/4 ML VIAL IV SCH ×2 (08:49→16:11)
[2020-09-24] MEDS: TAMSULOSIN 0.4 MG CAPSULE PO SCH ×2 (08:51→21:01)
[2020-09-24] MEDS: sitaGLIPtin 100 MG TABLET PO SCH (08:51)
[2020-09-24] MEDS: FLUTICASONE 50 MCG NASAL SPRAY 16 GM BOTTLE BOTH NARES SCH (09:40)
[2020-09-24] MEDS: allopurinoL 300 MG TABLET PO SCH (09:40)
[2020-09-25] MEDS: ALBUTEROL/IPRATROPIUM 3 ML NEB RESP TX SCH ×4 (00:10→20:04)
[2020-09-25] MEDS: methylPREDNISolone SOD SUC 40 MG/1 ML VIAL IV SCH ×3 (00:42→16:17)
[2020-09-25] MEDS: DOCUSATE SODIUM 100 MG CAPSULE PO PRN (08:17)
[2020-09-25] MEDS: LOSARTAN 25 MG TABLET PO SCH (08:17)
[2020-09-25] MEDS: THEOPHYLLINE ER (24 HR) 400 MG CAPSULE PO SCH (08:17)
[2020-09-25] MEDS: PANTOPRAZOLE 40 MG TABLET PO SCH (08:18)
[2020-09-25] MEDS: TAMSULOSIN 0.4 MG CAPSULE PO SCH ×2 (08:18→20:27)
[2020-09-25] MEDS: sitaGLIPtin 100 MG TABLET PO SCH (08:18)
[2020-09-25] MEDS: ASPIRIN EC 81 MG TABLET PO SCH (08:18)
[2020-09-25] MEDS: FUROSEMIDE 40 MG/4 ML VIAL IV SCH ×2 (08:18→16:16)
[2020-09-25] MEDS: allopurinoL 300 MG TABLET PO SCH (08:18)
[2020-09-25] MEDS: SILDENAFIL 20 MG TABLET PO SCH ×3 (08:18→20:27)
[2020-09-25] MEDS: carvediloL 3.125 MG TABLET PO SCH ×2 (08:18→16:16)
[2020-09-25] MEDS: FLUTICASONE 50 MCG NASAL SPRAY 16 GM BOTTLE BOTH NARES SCH (08:19)
[2020-09-26] MEDS: ALBUTEROL/IPRATROPIUM 3 ML NEB RESP TX SCH ×4 (00:28→19:14)
[2020-09-26] MEDS: methylPREDNISolone SOD SUC 40 MG/1 ML VIAL IV SCH ×3 (01:12→16:57)
[2020-09-26] MEDS: guaiFENesin/DM ER 600-30 MG TABLET PO PRN ×2 (01:16→15:36)
[2020-09-26] MEDS: FUROSEMIDE 40 MG/4 ML VIAL IV SCH ×2 (09:44→15:36)
[2020-09-26] MEDS: SILDENAFIL 20 MG TABLET PO SCH ×3 (09:45→20:47)
[2020-09-26] MEDS: THEOPHYLLINE ER (24 HR) 400 MG CAPSULE PO SCH (09:45)
[2020-09-26] MEDS: LOSARTAN 25 MG TABLET PO SCH (09:45)
[2020-09-26] MEDS: TAMSULOSIN 0.4 MG CAPSULE PO SCH ×2 (09:45→20:47)
[2020-09-26] MEDS: allopurinoL 300 MG TABLET PO SCH (09:45)
[2020-09-26] MEDS: carvediloL 3.125 MG TABLET PO SCH ×2 (09:45→16:57)
[2020-09-26] MEDS: ASPIRIN EC 81 MG TABLET PO SCH (09:45)
[2020-09-26] MEDS: PANTOPRAZOLE 40 MG TABLET PO SCH (09:45)
[2020-09-26] MEDS: sitaGLIPtin 100 MG TABLET PO SCH (09:45)
[2020-09-26] MEDS: FLUTICASONE 50 MCG NASAL SPRAY 16 GM BOTTLE BOTH NARES SCH (09:49)
[2020-09-27] MEDS: ALBUTEROL/IPRATROPIUM 3 ML NEB RESP TX SCH ×4 (01:12→19:18)
[2020-09-27] MEDS: methylPREDNISolone SOD SUC 40 MG/1 ML VIAL IV SCH ×3 (01:15→16:12)
[2020-09-27] MEDS: sitaGLIPtin 100 MG TABLET PO SCH (08:56)
[2020-09-27] MEDS: LOSARTAN 25 MG TABLET PO SCH (08:57)
[2020-09-27] MEDS: carvediloL 3.125 MG TABLET PO SCH ×2 (08:57→16:12)
[2020-09-27] MEDS: allopurinoL 300 MG TABLET PO SCH (08:57)
[2020-09-27] MEDS: ASPIRIN EC 81 MG TABLET PO SCH (08:57)
[2020-09-27] MEDS: SILDENAFIL 20 MG TABLET PO SCH ×3 (08:57→20:25)
[2020-09-27] MEDS: TAMSULOSIN 0.4 MG CAPSULE PO SCH ×2 (08:57→20:25)
[2020-09-27] MEDS: THEOPHYLLINE ER (24 HR) 400 MG CAPSULE PO SCH (08:57)
[2020-09-27] MEDS: PANTOPRAZOLE 40 MG TABLET PO SCH (08:57)
[2020-09-27] MEDS: FLUTICASONE 50 MCG NASAL SPRAY 16 GM BOTTLE BOTH NARES SCH (08:58)
[2020-09-27] MEDS: FUROSEMIDE 40 MG/4 ML VIAL IV SCH ×2 (08:58→16:12)
[2020-09-28] MEDS: methylPREDNISolone SOD SUC 40 MG/1 ML VIAL IV SCH ×3 (00:15→16:35)
[2020-09-28] MEDS ORDERED: MORPHINE 4 MG/1 ML VIAL IV ONE (00:29)
[2020-09-28] MEDS: ALBUTEROL/IPRATROPIUM 3 ML NEB RESP TX SCH ×4 (00:33→19:14)
[2020-09-28 08:21] LABS: ABG HCO3 29.6 MMOL/L (20-26); ABG Oxygen Saturation 91.4 % (95-100); ABG PCO2 46.8 MM HG (35-48); ABG PH 7.439 (7.35-7.45); ABG PO2 62.8 MM HG (80-95)
[2020-09-28] MEDS: ASPIRIN EC 81 MG TABLET PO SCH (09:50)
[2020-09-28] MEDS: SILDENAFIL 20 MG TABLET PO SCH ×3 (09:50→23:45)
[2020-09-28] MEDS: sitaGLIPtin 100 MG TABLET PO SCH (09:50)
[2020-09-28] MEDS: THEOPHYLLINE ER (24 HR) 400 MG CAPSULE PO SCH (09:50)
[2020-09-28] MEDS: PANTOPRAZOLE 40 MG TABLET PO SCH (09:50)
[2020-09-28] MEDS: carvediloL 3.125 MG TABLET PO SCH ×2 (09:50→16:35)
[2020-09-28] MEDS: allopurinoL 300 MG TABLET PO SCH (09:50)
[2020-09-28] MEDS: TAMSULOSIN 0.4 MG CAPSULE PO SCH ×2 (09:50→23:45)
[2020-09-28] MEDS: LOSARTAN 25 MG TABLET PO SCH (09:50)
[2020-09-28] MEDS: FLUTICASONE 50 MCG NASAL SPRAY 16 GM BOTTLE BOTH NARES SCH (09:51)
[2020-09-28] MEDS: FUROSEMIDE 40 MG/4 ML VIAL IV SCH ×2 (09:51→16:35)
[2020-09-28 11:45] LABS: ABG Base Excess 6.3 MMOL/L (-2.5-2.5); ABG HCO3 29.7 MMOL/L (20-26); ABG Oxygen Saturation 87.5 % (95-100); ABG PCO2 47.9 MM HG (35-48); ABG PH 7.437 (7.35-7.45); ABG PO2 55.1 MM HG (80-95); ABG TCO2 25.3 MMOL/L (23-27); Allen Test Positive
[2020-09-29] MEDS: ALBUTEROL/IPRATROPIUM 3 ML NEB RESP TX SCH (00:59)
[2020-09-29] MEDS: methylPREDNISolone SOD SUC 40 MG/1 ML VIAL IV SCH (01:20)
[2020-09-29 04:23] VITALS: BP 112/75
[2020-09-29 06:53] LABS: Calcium 9.9 MG/DL (8.5-10.1); Osmolality,Calculated 276.7 MOS/KG (273-304); Potassium 5.9 MMOL/L (3.5-5.1)
[2020-09-29] MEDS ORDERED: LEVALBUTEROL 1.25 MG/3 ML NEB RESP TX SCH (07:00)
[2020-09-29] MEDS ORDERED: MEPERIDINE 50 MG/1 ML VIAL IM ONE (07:00)
[2020-09-29] MEDS ORDERED: PROMETHAZINE 25 MG/1 ML VIAL IM ONE (07:00)
[2020-09-29] MEDS ORDERED: LIDOCAINE 1% 20 ML VIAL MISC INJ ONE (07:30)
[2020-09-29] MEDS ORDERED: LIDOCAINE 2% VISCOUS 100 ML BOTTLE SWISH/SPIT ONE (07:30)
[2020-09-29] MEDS ORDERED: MIDAZOLAM 2 MG/2 ML VIAL IV ONE (07:30)
[2020-09-29] MEDS ORDERED: LIDOCAINE 2% 20 ML VIAL RESP TX ONE (07:30)
[2020-09-29] MEDS ORDERED: CALCIUM CHLORIDE 1,000 MG/10 ML SYRINGE IV ONE (08:43)
[2020-09-29] MEDS ORDERED: SODIUM BICARBONATE 50 MEQ/50 ML SYRINGE IV ONE (08:43)
[2020-09-29] MEDS ORDERED: EPINEPHrine 1 MG/10 ML SYRINGE ONE (08:43)
== END 2020-09-29 08:13 | disposition expired | DRG 291 ==
LOC: N.EDINP 10:39 → N.ED 10:39 → N.5E 17:28 → SUATTDRO 09-23 10:33
PROVIDERS: ADMIT Internal Medicine Geriatric Medicine; ATTEND Emergency Medicine